=== PATIENT | male | born 1960 | race Caucasian/White ===

== ENCOUNTER 2018-03-06 10:32 | Outpatient (REF) | payer OTHER, SELFPAY ==
[2018-03-06 20:30] LABS: Anion Gap 6.9 mmol/L (3-11); BUN 22 mg/dL (7-18); CO2 32.1 mmol/L (21.0-32.0); CREATININE 1.23 mg/dL (0.70-1.30); Calcium 9.6 mg/dL (8.5-10.1); Chloride 101 mmol/L (98-107); Glucose 136 mg/dL (70-100); Sodium 140 mmol/L (136-145)
[2018-03-06 20:32] LABS: Hemoglobin A1C 5.9 % (4.5-6.2)
== END 2018-03-06 10:52 ==
LOC: NCHCN 10:32
PROVIDERS: PCP Family Medicine; Visit Provider Family Medicine
DX: I10 Essential (primary) hypertension (principal); Z83.3 Family history of diabetes mellitus
CPT/HCPCS: 80048; 83036

== ENCOUNTER 2018-05-22 09:55 | Emergency (ER) | payer OTHER, SELFPAY ==
[2018-05-22 09:58] VITALS: BP 152/104; PULSE 99; RESP 20; TEMP 36.5; O2SAT 98
--- NOTE | 2018-05-22 10:24 | ED.GENADUL_ITS ---
Discharge Plan Disposition Patient Disposition: HOME Condition: Good Discharge Details Chief Complaint: RespSymp Clinical Impression: Community acquired pneumonia Primary Care Provider: Neena Montiel V ED Provider: Dylan Contreras Home Meds and New Rx's Prescriptions: New doxycycline hyclate 100 mg tablet 100 mg PO BID Qty: 20 RF: 0 albuterol sulfate 90 mcg/actuation HFA aerosol inhaler 2 puff IH Q6H PRN (Reason: shortness of breath or wheezing) Qty: 8 RF: 0 loratadine 10 mg tablet,disintegrating 10 mg PO DAILY Qty: 14 RF: 0 benzonatate [Tessalon Perles] 100 mg capsule 100 mg PO QID PRN (Reason: cough) Qty: 20 RF: 0 No Action celecoxib [Celebrex] 200 MG capsule 200 mg PO BID RF: 0 tramadol 50 MG tablet 50 mg PO BID RF: 0 terazosin 2 MG capsule 8 mg PO DAILY RF: 0 hydrochlorothiazide 12.5 MG capsule 12.5 mg PO DAILY RF: 0 aspirin [Aspirin Low-Strength] 81 MG tablet,chewable 81 mg PO DAILY RF: 0 ProAir HFA 8.5 GM HFA aerosol inhaler 2 puff Inhalation ONCE RF: 0 FLEXERIL 10 MG tablet 10 mg PO TID RF: 0 methotrexate sodium 2.5 MG tablet 2.5 mg PO 6 TABS A WEEK RF: 0 losartan 100 MG tablet 100 mg PO DAILY RF: 0 gabapentin 300 MG/6 ML solution 300 mg PO TID RF: 0 chlorthalidone 50 MG tablet 50 mg PO DAILY RF: 0 pantoprazole 40 MG tablet,delayed release (DR/EC) 40 mg PO DAILY RF: 0 folic acid 1 MG tablet 1 mg PO DAILY RF: 0 Discharge Instructions Instructions: Sinusitis (ED), Community Acquired Pneumonia (ED) Additional Instructions: Please take the antibiotic as directed. Please take the inhaler if you note that this helps you with your cough. Please take the loratadine for your congestion. If you notice any worsening of your symptoms, or any new symptoms such as vomiting, diarrhea, fever, chills, shortness of breath, chest pain, numbness, weakness, or fainting , please return immediately to the emergency department for reevaluation. Please follow up with your primary care provider as soon as possible for reassessment and reevaluation. As always, it was a pleasure participating in your medical care today. Referrals: Neena Montiel MD [Primary Care Provider] - Discharge Data Discharge Date/Time-TO BE ENTERED AT DEPARTURE: 05/22/18 10:35 Medical Decision Making This is a very pleasant 57-year-old male who presents with persistent cough for 2 weeks, crackles in the bases, productive green and yellow sputum. He shows no evidence of hypoxemia or tachypnea. He ambulates well without any respiratory distress. He has no concerning red flags for cardiac etiology with no chest pain, no shortness of breath, no fever or chills. Physical exam shows no other concerning abnormalities. Feel that the patient most likely has mild community- acquired pneumonia with his persistent cough and productive sputum as well as the positive lung auscultatory findings. With reassuring vital signs no other significant abnormalities we have decided to hold off on a chest x-ray through shared decision making process understanding both risks and benefits. We will treat for community-acquired pneumonia. I have extensively reviewed the treatment plan and discharge instructions with the patient. I have addressed all patient concerns at this time. The patient was made aware of what symptoms to monitor for that would warrant a return to the emergency department. Discussed the plan with the patient, they demonstrate verbal understanding and agreement with our assessment and plan at this time. [facility] General Date/Time Provider Initiated Documentation: 05/22/18 10:19 . [facility] Narrative: This is a 57-year-old male with a past medical history of hypertension and no history of tobacco abuse or cardiac disease who presents today with 2 weeks of cough, congestion, productive yellow sputum. He denies any chest pain or shortness of breath. He denies any hemoptysis, fever, chills, nausea vomiting or diarrhea. Denies PE risk factors such as recent long car rides, immobilization, recent surgery, prior history of DVT or PE, family history of PE or DVT, morbid obesity, exogenous estrogen and smoking, hemoptysis, history of cancer. No recent hospital admissions, and he does live at home. Patient has no other complaints or modifying factors at this time. Related Data Home Medications Medication Instructions Recorded Confirmed Flexeril 10 mg PO TID tab-cap 07/10/12 05/22/18 albuterol sulfate [Proair Hfa] 2 puff INHALATION ONCE puff 07/10/12 05/22/18 aspirin [Aspirin Low-Strength] 81 mg PO DAILY tab-cap 07/10/12 05/22/18 celecoxib [Celebrex] 200 mg PO BID tab-cap 07/10/12 05/22/18 hydrochlorothiazide 12.5 mg PO DAILY tab-cap 07/10/12 05/22/18 terazosin 8 mg PO DAILY 07/10/12 05/22/18 tramadol 50 mg PO BID 07/10/12 05/22/18 gabapentin 300 mg PO TID ml 02/01/14 05/22/18 losartan 100 mg PO DAILY tab-cap 02/01/14 05/22/18 methotrexate sodium 2.5 mg PO 6 TABS A WEEK 02/01/14 05/22/18 chlorthalidone 50 mg PO DAILY tab-cap 09/20/16 05/22/18 folic acid 1 mg PO DAILY tab-cap 09/20/16 05/22/18 pantoprazole 40 mg PO DAILY tab-cap 09/20/16 05/22/18 albuterol sulfate 2 puff IH Q6H PRN #8 gm 05/22/18 benzonatate [Tessalon Perles] 100 mg PO QID PRN #20 cap 05/22/18 doxycycline hyclate 100 mg PO BID #20 tab 05/22/18 loratadine 10 mg PO DAILY #14 tab 05/22/18 Previous Rx's Medication Instructions Recorded albuterol sulfate 2 puff IH Q6H PRN #8 gm 05/22/18 benzonatate [Tessalon Perles] 100 mg PO QID PRN #20 cap 05/22/18 doxycycline hyclate 100 mg PO BID #20 tab 05/22/18 loratadine 10 mg PO DAILY #14 tab 05/22/18 Allergies Allergy/AdvReac Type Severity Reaction Status Date / Time indomethacin [From Indocin] AdvReac Nausea/VOMI Unverified 05/22/18 09:59 TTIING indomethacin sodium AdvReac Nausea/VOMI Unverified 05/22/18 09:59 [From Indocin] TTIING metoprolol AdvReac FATIGUE/DIZ Unverified 05/22/18 10:00 ZINESS General Stated Complaint: RespSymp MOUSTAPHA: 3 Review of Systems Review of Systems All systems reviewed & are unremarkable except as noted in HPI and below PFSH Medical History Benign hypertension Chronic obstructive lung disease Surgical History Amputation Hernia Repair, Incisional Total replacement of hip Social History Smoking and Tabacco status: Never Exam Narrative Exam Narrative: 1.Const: Well-nourished, Well-developed, appearing stated age 2.Eyes: PERRL, no conjunctival injection, and symmetrical lids. 3.ENT: Atraumatic external nose and ears. Moist MM. Neck: Symmetric, trachea midline, No thyromegaly. 4.CVS: +S1/S2, No murmurs or gallops. Peripheral pulses 2+ and equal in all extremities. Brisk capillary refill in all extremities. 5.RESP: Unlabored respiratory effort. Minimal crackles in the bases, no wheezes or rhonchi. 6.GI: Soft, Nontender/Nondistended, No hepatosplenomegaly. No guarding or rebound. 7.MSK: Normocephalic/Atraumatic, Extremities w/o deformity or ttp No cyanosis or clubbing, Normal movement of all extremities 8.Skin: Warm, Dry. No rashes or lesions. 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 Sensation grossly intact, no focal neurologic deficits. 10.Psych: (AAO) x3. Appropriate mood and affect Course Vital Signs Temperature 36.5 C 05/22/18 09:58 Pulse 99 H 05/22/18 09:58 Respiratory Rate 20 05/22/18 09:58 Blood Pressure 152/104 H 05/22/18 09:58 Pulse Oximetry 98 05/22/18 09:58 Temperature 36.5 C 05/22/18 09:58 Temperature Source Temporal Artery Scan 05/22/18 09:58 Pulse 99 H 05/22/18 09:58 Respiratory Rate 20 05/22/18 09:58 Respiratory Effort Non-Labored 05/22/18 09:58 Blood Pressure 152/104 H 05/22/18 09:58 Blood Pressure Position Sitting 05/22/18 09:58 Pulse Oximetry 98 05/22/18 09:58 Oxygen Delivery Method Room Air 05/22/18 09:58 Oxygen Flow Rate 0 05/22/18 09:58 Comment 05/22/18 09:58
[2018-05-22 11:15] VITALS: BP 152/104; PULSE 99; RESP 20; TEMP 36.5; O2SAT 98
== END 2018-05-22 10:35 | disposition home or self-care (01) ==
LOC: ER 10:39
PROVIDERS: Emergency Provider Student in an Organized Health Care Education/Training Program; PCP Family Medicine
DX: J18.9 Pneumonia, unspecified organism (principal); J44.9 Chronic obstructive pulmonary disease, unspecified; I10 Essential (primary) hypertension
CPT/HCPCS: 99283

== ENCOUNTER 2019-04-17 10:39 | Outpatient (REF) | payer OTHER, SELFPAY ==
[2019-04-17 22:30] LABS: HCT 44.9 % (40.0-50.0); HGB 15.4 g/dL (13.5-17.5); Mean Corp. HGB Concentration 34.3 g/dL (32.0-36.0); Mean Corpuscular Hemoglobin 28.9 pg (27.0-33.0); Mean Corpuscular Volume 84.2 fL (80-95); Mean Platelet Volume 10.7 fL (8.0-11.0); Platelet Count 228 x1000/uL (130-400); RBC 5.33 m/cumm (4.50-6.00); RBC Distribution Width 12.6 % (11.8-14.1); White Blood Cell Count 6.09 k/cumm (4.4-10.8)
[2019-04-17 22:48] LABS: ALT 34 U/L (16-63); AST 25 U/L (15-37); Albumin 3.7 g/dL (3.4-5.0); Alkaline Phosphatase 108 U/L (46-116); Anion Gap 8.6 mmol/L (3-11); BUN 15 mg/dL (7-18); Bilirubin, Total 0.4 mg/dL (0.2-1.0); CO2 29.4 mmol/L (21.0-32.0); CREATININE 1.02 mg/dL (0.70-1.30); Calcium 8.7 mg/dL (8.5-10.1); Calculated LDL 137 mg/dL; Chloride 103 mmol/L (98-107); Cholesterol 183 mg/dL (<200); Glucose 124 mg/dL (74-106); HDL Cholesterol 32 mg/dL (40-60); Potassium 4.3 mmol/L (3.5-5.1); Sodium 141 mmol/L (136-145); Total Protein 6.6 g/dL (6.4-8.2); Triglyceride 70 mg/dL (<150)
[2019-04-17 23:26] LABS: ESR 7 mm/hr (1-20)
[2019-04-17 23:28] LABS: Hemoglobin A1C 6.3 % (3.8-5.6)
[2019-04-21 11:22] LABS: PSA, Screening 0.1 ng/mL (0.0-3.5)
== END 2019-04-17 10:59 ==
LOC: NCHCN 10:39
PROVIDERS: PCP Family Medicine; Visit Provider Family Medicine
DX: Z00.00 Encounter for general adult medical examination without abnormal findings (principal); R73.03 Prediabetes; I73.00 Raynaud's syndrome without gangrene; I10 Essential (primary) hypertension; M19.90 Unspecified osteoarthritis, unspecified site; M79.10 Myalgia, unspecified site; Z12.5 Encounter for screening for malignant neoplasm of prostate
CPT/HCPCS: 80053; 80061; 84153; 85027; 85652; 83036; 86140

== ENCOUNTER 2019-05-20 17:47 | Outpatient (REF) | payer OTHER, SELFPAY ==
--- NOTE | 2019-05-20 16:00 | SKI_PTH ---
PATIENT: Lisandro Frances LOC: [facility]#:[id number] AGE/SX: 58/M ROOM: RE05/20/[address]: Neena Montiel V : 1960 BED: DIS: 05/20/2019 SPEC #: [id number] RECD: 05/21/19 12:27 STATUS: WHITLEY GONZALES #: [id number] RJ: 05/20/19 16:[address]: Neena Montiel V DEPT: Surgical Specimen RECD BY: Vivian Garcia Tissues: 1 - SKIN BIOPSY(SHAVE/PUNCH) Procedures: SKIN LEVEL 4 Comments: [id number]
== END 2019-05-20 18:07 ==
LOC: NCHCN 17:47
PROVIDERS: PCP Family Medicine; Visit Provider Family Medicine
DX: L28.1 Prurigo nodularis (principal)
CPT/HCPCS: 88305

== ENCOUNTER 2019-09-04 08:40 | Outpatient (REF) | payer OTHER, SELFPAY ==
[2019-09-04 19:03] LABS: HCT 44.3 % (40.0-50.0); HGB 15.2 g/dL (13.5-17.5); Mean Corp. HGB Concentration 34.3 g/dL (32.0-36.0); Mean Corpuscular Hemoglobin 30.3 pg (27.0-33.0); Mean Corpuscular Volume 88.2 fL (80-95); Mean Platelet Volume 10.9 fL (8.0-11.0); Platelet Count 253 x1000/uL (130-400); RBC 5.02 m/cumm (4.50-6.00); RBC Distribution Width 13.3 % (11.8-14.1); White Blood Cell Count 6.36 k/cumm (4.4-10.8)
[2019-09-04 19:12] LABS: ALT 45 U/L (16-63); AST 21 U/L (15-37); Albumin 4.1 g/dL (3.4-5.0); Alkaline Phosphatase 110 U/L (46-116); Anion Gap 6.5 mmol/L (3-11); BUN 17 mg/dL (7-18); Bilirubin, Total 0.3 mg/dL (0.2-1.0); CO2 28.5 mmol/L (21.0-32.0); CREATININE 1.28 mg/dL (0.70-1.30); Chloride 104 mmol/L (98-107); Estimated GFR 57.93 (mL/min/1.73m2); Glucose 167 mg/dL (74-106); Potassium 4.5 mmol/L (3.5-5.1); Sodium 139 mmol/L (136-145); Total Protein 7.1 g/dL (6.4-8.2)
== END 2019-09-04 09:00 ==
LOC: NCHCN 08:40
PROVIDERS: PCP Family Medicine; Visit Provider Family Medicine
DX: Z00.00 Encounter for general adult medical examination without abnormal findings (principal); R73.03 Prediabetes; I10 Essential (primary) hypertension
CPT/HCPCS: 80053; 85027

== ENCOUNTER 2020-01-28 09:07 | Outpatient (REF) | payer OTHER, SELFPAY ==
[2020-01-28 20:51] LABS: HCT 44.1 % (40.0-50.0); HGB 14.8 g/dL (13.5-17.5); MCHC 33.6 % (32.0-36.0); MCV 89.3 fL (80-95); MPV 10.2 fL (8.0-11.0); Platelet Count 234 10^3/uL (130-400); RBC 4.94 10^6/uL (4.36-5.78); RDW-SD 42.3 fL; WBC 5.61 10^3/uL (4.4-10.8)
[2020-01-28 21:19] LABS: ALT 41 U/L (16-63); AST 22 U/L (15-37); Alkaline Phosphatase 134 U/L (46-116); Anion Gap 4.3 mmol/L (3-11); BUN 18 mg/dL (7-18); Bilirubin, Total 0.3 mg/dL (0.2-1.0); CO2 31.7 mmol/L (21.0-32.0); CREATININE 0.99 mg/dL (0.70-1.30); Calcium 9.1 mg/dL (8.5-10.1); Chloride 103 mmol/L (98-107); Glucose 159 mg/dL (74-106); Potassium 4.4 mmol/L (3.5-5.1); Sodium 139 mmol/L (136-145); Total Protein 6.8 g/dL (6.4-8.2)
[2020-01-28 21:27] LABS: Hemoglobin A1C 5.9 % (<5.7)
== END 2020-01-28 09:27 ==
LOC: NCHCN 09:07
PROVIDERS: PCP Family Medicine; Visit Provider Family Medicine
DX: E11.9 Type 2 diabetes mellitus without complications (principal); I10 Essential (primary) hypertension; R03.1 Nonspecific low blood-pressure reading
CPT/HCPCS: 80053; 85027; 83036

== ENCOUNTER 2020-03-09 15:37 | Outpatient (REF) | payer OTHER, SELFPAY ==
[2020-03-11 22:55] LABS: COVID-19 RT-PCR UVMMC Result Positive (Negative)
== END 2020-03-09 15:57 ==
LOC: NCHCN 15:37
PROVIDERS: PCP Family Medicine; Visit Provider Family Medicine
DX: J06.9 Acute upper respiratory infection, unspecified (principal)
CPT/HCPCS: U0003

== ENCOUNTER 2020-03-12 13:13 | Outpatient (CLI) | payer OTHER, SELFPAY ==
[2020-03-12] VITALS (9 sets, daily range): BP systolic 136–165; BP diastolic 79–98; PULSE 94–113; RESP 18–22; TEMP 37.9–39.4; O2SAT 95–98
[2020-03-12] MEDS: Normal Saline Flush 10 ML SYR IVP (14:10)
[2020-03-12] MEDS: Normal Saline 500 ML 30 ML IV (14:46)
== END 2020-03-12 13:33 ==
PROVIDERS: PCP Family Medicine; Visit Provider Family Medicine
DX: U07.1 COVID-19 (principal)
CPT/HCPCS: 96365

== ENCOUNTER 2020-03-18 17:52 | Outpatient (REF) | payer OTHER, SELFPAY ==
[2020-03-23 09:52] LABS: COVID-19 RT-PCR Result Positive (Negative)
== END 2020-03-18 18:12 ==
LOC: NCHCN 17:52
PROVIDERS: PCP Family Medicine; Visit Provider Family Medicine
DX: Z20.828 Contact with and (suspected) exposure to other viral communicable diseases (principal)
CPT/HCPCS: U0003

== ENCOUNTER 2020-07-16 15:18 | Outpatient (REF) | payer OTHER, SELFPAY | END 2020-07-16 15:19 | disposition home or self-care (01) | LOC: NCHCN 15:18 | PROVIDERS: PCP Family Medicine; Visit Provider Family Medicine | DX: Z79.891 Long term (current) use of opiate analgesic (principal); Z51.81 Encounter for therapeutic drug level monitoring | CPT/HCPCS: 80373 ==

== ENCOUNTER 2020-10-06 17:25 | Outpatient (REF) | payer OTHER, SELFPAY ==
[2020-10-06 19:40] LABS: Abs Immature Grans 0.03 10^3/uL (0.0-0.06); Absolute Basophil Count 0.05 10^3/uL (0.0-0.2); Absolute Eosinophil Count 0.28 10^3/uL (0.0-0.7); Absolute Lymphocyte Count 2.11 10^3/uL (1.2-3.4); Absolute Monocyte Count 0.43 10^3/uL (0.1-0.8); Absolute Neutrophil Count 4.68 10^3/uL (1.2-6.7); Basophils % 0.7; Eosinophils % 3.7; HCT 42.9 % (40.0-50.0); HGB 14.5 g/dL (13.5-17.5); Immature Grans % 0.4; Lymphocytes % 27.8; MCH 29.5 pg (27.0-33.0); MCHC 33.8 % (32.0-36.0); MCV 87.4 fL (80-95); MPV 10.2 fL (8.0-11.0); Monocytes % 5.7; Neutrophils % 61.7; Nucleated RBC 0 %; Platelet Count 233 10^3/uL (130-400); RBC 4.91 10^6/uL (4.36-5.78); RDW 13.2 % (11.8-14.1); RDW-SD 41.8 fL; WBC 7.58 10^3/uL (4.4-10.8)
[2020-10-06 20:00] LABS: ALT 36 U/L (16-63); AST 18 U/L (15-37); Albumin 4.2 g/dL (3.4-5.0); Alkaline Phosphatase 99 U/L (46-116); Anion Gap 9.4 mmol/L (3-11); BUN 19 mg/dL (7-18); Bilirubin, Total 0.4 mg/dL (0.2-1.0); CO2 28.6 mmol/L (21.0-32.0); CREATININE 1.1 mg/dL (0.70-1.30); Calcium 9.4 mg/dL (8.5-10.1); Chloride 105 mmol/L (98-107); Glucose 109 mg/dL (74-106); Potassium 4.5 mmol/L (3.5-5.1); Sodium 143 mmol/L (136-145); Total Protein 7.1 g/dL (6.4-8.2)
== END 2020-10-06 17:26 | disposition home or self-care (01) ==
LOC: NCHCN 17:25
PROVIDERS: PCP Family Medicine; Visit Provider Physician Assistant Medical
DX: U07.1 COVID-19 (principal)
CPT/HCPCS: 80053; 85025

== ENCOUNTER 2020-10-07 01:31 | Outpatient (CLI) | payer OTHER, SELFPAY ==
--- NOTE | 2020-10-07 07:54 | DI.RAD_ITS ---
Exam(s) XR CHEST 2V PA LATERAL EXAM: XR CHEST 2V PA LATERAL CLINICAL HISTORY: CHEST PAIN, R07.9 TECHNIQUE: 2D digital imaging was performed. COMPARISON: CR CHEST 2 VIEWS PA,LAT from 05/29/2011 CR CHEST 2 VIEWS PA,LAT from 05/29/2011 CR LEFT SHOULDER COMPLETE from 08/29/2016 FINDINGS: MEDIASTINUM: Normal. HEART: Normal. PULMONARY VASCULATURE: Normal. LUNGS: Clear. PLEURAL SPACE: No pleural effusion or pneumothorax. BONE:Normal. OTHER FINDINGS:Normal. IMPRESSION: No acute pulmonary findings. DATA REPOSITORY: RADIATION DOSE DELIVERED:
== END 2020-10-07 01:51 ==
PROVIDERS: PCP Family Medicine; Visit Provider Physician Assistant Medical
DX: R07.9 Chest pain, unspecified (principal)
CPT/HCPCS: 71046

== ENCOUNTER 2021-05-03 17:21 | Outpatient (REF) | payer OTHER, SELFPAY ==
[2021-05-03 14:18] LABS: HCT 44.7 % (40.0-50.0); MCH 29.6 pg (27.0-33.0); MCHC 33.6 % (32.0-36.0); MCV 88.2 fL (80-95); MPV 10.5 fL (8.0-11.0); Platelet Count 221 10^3/uL (130-400); RBC 5.07 10^6/uL (4.36-5.78); RDW 12.9 % (11.8-14.1); RDW-SD 41.1 fL; WBC 5.67 10^3/uL (4.4-10.8)
[2021-05-03 14:21] LABS: ESR 4 mm/hr (0-20)
[2021-05-03 14:28] LABS: ALT 38 U/L (16-63); AST 21 U/L (15-37); Albumin 4.1 g/dL (3.4-5.0); Alkaline Phosphatase 102 U/L (46-116); Anion Gap 6.6 mmol/L (3-11); BUN 15 mg/dL (7-18); Bilirubin, Total 0.4 mg/dL (0.2-1.0); CO2 29.4 mmol/L (21.0-32.0); Calcium 8.6 mg/dL (8.5-10.1); Calculated LDL 116 mg/dL (<100); Chloride 104 mmol/L (98-107); Cholesterol 165 mg/dL (<200); Glucose 122 mg/dL (74-106); HDL Cholesterol 36 mg/dL (40-60); Potassium 4.3 mmol/L (3.5-5.1); Sodium 140 mmol/L (136-145); Triglyceride 66 mg/dL (<150)
[2021-05-03 14:45] LABS: Hemoglobin A1C 6.2 % (<5.7)
[2021-05-03 17:26] LABS: C-Reactive Protein 0.19 mg/dL (0.0-0.3)
[2021-05-04 14:33] LABS: COVID-19 RT-PCR UVMMC Result Negative (Negative)
== END 2021-05-03 17:22 | disposition home or self-care (01) ==
LOC: NCHCN 17:21
PROVIDERS: PCP Family Medicine; Visit Provider Family Medicine
DX: Z20.822 Contact with and (suspected) exposure to COVID-19 (principal); R05.8 Other specified cough; E11.9 Type 2 diabetes mellitus without complications; I10 Essential (primary) hypertension; R06.09 Other forms of dyspnea; M19.90 Unspecified osteoarthritis, unspecified site
CPT/HCPCS: 80053; 80061; 85027; 85652; U0003; 83036; 86140

== ENCOUNTER 2021-06-03 13:25 | Emergency (ER) | payer OTHER, SELFPAY ==
[2021-06-03] VITALS (37 sets, daily range): BP systolic 118–170; BP diastolic 67–121; PULSE 95–135; RESP 12–20; TEMP 37.3; O2SAT 93–99
--- NOTE | 2021-06-03 13:15 | RT.EKG_ITS ---
APPROVED REPORT Exam: Resting ECG Reason for Exam: CHEST PAIN Patient Location: E HR:116 bpm ECG Measurements Heart Rate 116 AXIS WV 171 P 92 QRSd 150 QRS 50 QT 362 T 3 QTc 504 Conclusion Sinus tachycardia Multiple ventricular premature complexes Right bundle branch block...QRSd>120
--- NOTE | 2021-06-03 13:30 | RT.EKG_ITS ---
APPROVED REPORT Exam: Resting ECG Reason for Exam: CHEST PAIN Patient Location: E HR:127 bpm ECG Measurements Heart Rate 127 AXIS DC 128 P 73 QRSd 136 QRS -50 QT 310 T -8 QTc 451 Conclusion Sinus tachycardia. RBBB and LAFB...QRSd >120mS, axis(-40,240) Lateral infarct, acute...ST >.10mV, V5 V6 I aVL Borderline ST elevation, anterior leads...ST >0.15mV in V1-V4
--- NOTE | 2021-06-03 13:45 | RT.EKG_ITS ---
APPROVED REPORT Exam: Resting ECG Reason for Exam: chest pain Patient Location: E HR:102 bpm ECG Measurements Heart Rate 102 AXIS MI 189 P 82 QRSd 147 QRS 58 QT 356 T 27 QTc 464 Conclusion Sinus tachycardia Right bundle branch block. Improved ST segments vs previous
--- NOTE | 2021-06-03 13:45 | RT.EKG_ITS ---
APPROVED REPORT Exam: Resting ECG Reason for Exam: chest pain Patient Location: E HR:109 bpm ECG Measurements Heart Rate 109 AXIS WI 139 P 61 QRSd 157 QRS 75 QT 367 T 44 QTc 496 Conclusion Sinus tachycardia...rate> 99 Right bundle branch block Improved ST segments
[2021-06-03 13:53] LABS: Source Nasal/Nares
--- NOTE | 2021-06-03 13:56 | DI.RAD_ITS ---
Exam(s) XR PORTABLE CHEST AP EXAM: XR PORTABLE CHEST AP CLINICAL HISTORY: chest TECHNIQUE: 2D digital imaging was performed of the chest. One image was obtained. An AP view was ob tained. COMPARISON: CR XR CHEST 2V PA LATERAL from 10/07/2020 FINDINGS: MEDIASTINUM: Normal. HEART: Normal. PULMONARY VASCULATURE: Normal. LUNGS: Clear. PLEURAL SPACE: No pleural effusion or pneumothorax. BONE:Within normal limits for the patient's age. OTHER FINDINGS:Normal. IMPRESSION: No acute pulmonary findings. DATA REPOSITORY: RADIATION DOSE DELIVERED:
[2021-06-03 13:58] LABS: HGB 14.6 g/dL (13.5-17.5); MCH 30.3 pg (27.0-33.0); MCV 89.2 fL (80-95); Platelet Count 231 10^3/uL (130-400); RBC 4.82 10^6/uL (4.36-5.78); RDW 13.2 % (11.8-14.1); RDW-SD 42.3 fL; WBC 8.46 10^3/uL (4.4-10.8)
[2021-06-03 13:59] LABS: Abs Immature Grans 0.05 10^3/uL (0.0-0.06); Absolute Basophil Count 0.07 10^3/uL (0.0-0.2); Absolute Eosinophil Count 0.34 10^3/uL (0.0-0.7); Absolute Lymphocyte Count 2.57 10^3/uL (1.2-3.4); Absolute Monocyte Count 0.53 10^3/uL (0.1-0.8); Basophils % 0.8; Immature Grans % 0.6; Lymphocytes % 30.4; MPV 10.1 fL (8.0-11.0); Monocytes % 6.3; Neutrophils % 57.9; Nucleated RBC 0 %
[2021-06-03] MEDS: nitroGLYcerin 0.4 MG TAB ×2 (14:03)
[2021-06-03] MEDS: MORPHine 4 MG/ML SYR IVP (14:04)
[2021-06-03] MEDS: Aspirin 81 MG CHEW 324 MG CH (14:05)
[2021-06-03] MEDS: nitroGLYcerin in D5W 50 MG/250 ML BTL IV (14:12)
[2021-06-03] MEDS: MORPHine 4 MG/ML SYR (14:14)
[2021-06-03 14:18] LABS: ALT 36 U/L (16-63); AST 19 U/L (15-37); Albumin 4.1 g/dL (3.4-5.0); Alkaline Phosphatase 102 U/L (46-116); BUN 18 mg/dL (7-18); Bilirubin, Total 0.3 mg/dL (0.2-1.0); CREATININE 1.2 mg/dL (0.70-1.30); Calcium 8.9 mg/dL (8.5-10.1); Chloride 108 mmol/L (98-107); Glucose 113 mg/dL (74-106); Potassium 3.8 mmol/L (3.5-5.1); Sodium 143 mmol/L (136-145); Total Protein 7.3 g/dL (6.4-8.2); Troponin I < 50 ng/L (<or=60)
--- NOTE | 2021-06-03 14:20 | ED.GENADUL_ITS ---
Discharge Plan Disposition Patient Disposition: [facility] Condition: Serious Discharge Details Clinical Impression: Myocardial infarction Primary Care Provider: Neena Montiel V ED Provider: Vivian Mendez Home Meds and New Rx's Prescriptions: No Action celecoxib [Celebrex] 200 MG capsule 200 mg PO BID 0RF tramadol 50 MG tablet 50 mg PO BID 0RF terazosin 2 MG capsule 8 mg PO DAILY 0RF Rx Instructions: AT NIGHT methotrexate sodium 2.5 MG tablet 2.5 mg PO 6 TABS A WEEK 0RF Label Comments: 08/14/14 takes q weekly on Sat night Rx Instructions: RECORDS STATE, 2.5MG, 6 TAB Q WEEK.HE losartan 100 MG tablet 100 mg PO DAILY 0RF Label Comments: FROM RECORD.HE gabapentin 300 MG/6 ML solution 300 mg PO TID 0RF Label Comments: FROM RECORD.HE cyclobenzaprine 10 mg Tablet 10 mg PO BID 0RF Medical Decision Making 60-year-old male who was seen, examined, discussed with the bedside with Ms. Mendez. Please see her portion of the note for pertinent details of the physical exam. Patient has a history of hypertension, history approximately 10 months of intermittent episodes of exertional chest pain. 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 Rates a 10 out of 10 on arrival. Patient's initial EKG showed freestanding right bundle branch block. He was hypertensive at that time and then had an escalation of his pain with EKG #[address] segment elevation in leads I, aVL and V4 through V6 with anterior T wave changes. Most consistent with acute coronary syndrome. Patient was placed on a monitoring manager with IV access, portable chest x-ray was obtained without evidence of acute findings. Patient was given aspirin, placed on heparin and nitroglycerin drips with morphine used for additional pain control. EKGs were uploaded in the case the cardiology team by Ms. Mendez. They agree with our diagnosis of acute myocardial infarction. They recommended the administration of TNKase. I personally consented the patient for the administration of TNKase at 14:30 hrs and specifically noted to have in the presence of nursing staff the risk of permanent disability or . [facility] for contacted for transport. HPI General Mode of arrival: ambulatory . Date/Time Provider Initiated Documentation: 06/03/21 13:26 . Limitations to Documentation: no limitations . Information obtained by: patient . History of Present Illness 60 year old M presents to the emergency department with the chief complaint of Chest pain, abrupt at 2:30, described as severe, Quality is described as constant, and is localized to the left. Patient reports no radiation. Patient started experiencing this hour(s) and it has been constant. improves with No relieving factors improve symptom(s), Movement worsens symptoms . Patient notes no other symptoms.. Patient did receive the following treatments prior to arrival, none Related Data Home Medications Medication Instructions Recorded Confirmed celecoxib 200 mg capsule (Celebrex) 200 mg PO BID tab-cap 07/10/12 06/03/21 terazosin 2 mg capsule 8 mg PO DAILY 07/10/12 06/03/21 tramadol 50 mg tablet 50 mg PO BID 07/10/12 06/03/21 gabapentin 300 mg/6 mL (6 mL) oral 300 mg PO TID ml 02/01/14 06/03/21 solution losartan 100 mg tablet 100 mg PO DAILY tab-cap 02/01/14 06/03/21 methotrexate sodium 2.5 mg tablet 2.5 mg PO 6 TABS A WEEK 02/01/14 06/03/21 cyclobenzaprine 10 mg tablet 10 mg PO BID 03/12/20 06/03/21 Allergies Allergy/AdvReac Type Severity Reaction Status Date / Time indomethacin [From Indocin] AdvReac Nausea/VOMI Unverified 03/12/20 14:26 TTIING indomethacin sodium AdvReac Nausea/VOMI Unverified 03/12/20 14:26 [From Indocin] TTIING metoprolol AdvReac FATIGUE/DIZ Unverified 03/12/20 14:26 ZINESS General Stated Complaint: Chest Pain MOUSTAPHA: 3 Review of Systems Narrative: Patient denies recent illness. No falls, no recent strokes or history thereof, no intracranial surgery. No history of bleeding issues. 8 systems were reviewed and otherwise negative PFSH All Active Problems (Updated 06/03/21 @ 14:34 by Flaikto Solorzano MD) Myocardial infarction (Chronic) Medical History Benign hypertension Chronic obstructive lung disease Surgical History Amputation left ring Hernia Repair, Incisional x 4 Total replacement of hip bilateral done at same setting. Social History Smoking/Tobacco Use Status: Never Smoking risk assessment performed?: Yes Alcohol Intake: never Drug use: Never Substance use type: does not use Do you feel safe at home: Yes Do you feel safe in your relationship?: Yes Exam Narrative Exam Narrative: Please see Ms. Mendez exam. Patient is alert and interactive Course Vital Signs Vital signs: Vital Signs Temperature 37.3 C 06/03/21 13:29 Pulse 107 H 06/03/21 13:29 Respiratory Rate 18 06/03/21 13:29 Blood Pressure 163/106 H 06/03/21 13:29 Pulse Oximetry 98 06/03/21 13:29 Temperature 37.3 C 06/03/21 13:29 Temperature Source Tympanic 06/03/21 13:29 Pulse 107 H 06/03/21 13:29 Respiratory Rate 18 06/03/21 13:29 Respiratory Effort Non-Labored 06/03/21 13:32 Respiratory Depth Normal 06/03/21 13:32 Respiratory Pattern Normal 06/03/21 13:32 Blood Pressure 163/106 H 06/03/21 13:29 Blood Pressure Position Supine 06/03/21 13:29 Pulse Oximetry 98 06/03/21 13:29 Oxygen Delivery Method Room Air 06/03/21 13:29 Oxygen Flow Rate 0 06/03/21 13:29 Pain Level 10 06/03/21 14:14 Lab/Test Results Lab/Test Results: Laboratory Tests Range/Units 06/03/21 06/03/21 06/03/21 13:40 13:40 13:40 WBC (4.4-10.8) 10^3/uL 8.46 RBC (4.36-5.78) 10^6/uL 4.82 Hgb (13.5-17.5) g/dL 14.6 Hct (40.0-50.0) % 43.0 MCV (80-95) fL 89.2 MCH (27.0-33.0) pg 30.3 MCHC (32.0-36.0) % 34.0 RDW (11.8-14.1) % 13.2 Plt Count (130-400) 10^3/uL 231 MPV (8.0-11.0) fL 10.1 Immature Gran % 0.6 Neutrophils % 57.9 Lymphocytes % 30.4 Monocytes % 6.3 Eosinophils % 4.0 Basophils % 0.8 Nucleated RBC % % 0 Absolute Neutrophils (1.2-6.7) 10^3/uL 4.90 Absolute Lymphocytes (1.2-3.4) 10^3/uL 2.57 Absolute Monocytes (0.1-0.8) 10^3/uL 0.53 Absolute Eosinophils (0.0-0.7) 10^3/uL 0.34 Absolute Basophils (0.0-0.2) 10^3/uL 0.07 Sodium (136-145) mmol/L 143 Potassium (3.5-5.1) mmol/L 3.8 Chloride (98-107) mmol/L 108 H Carbon Dioxide (21.0-32.0) mmol/L 26.0 Anion Gap (3-11) mmol/L 9.0 BUN (7-18) mg/dL 18 Creatinine (0.70-1.30) mg/dL 1.2 Estimated GFR/1.73 m2 (mL/min/1.73m2) >= 60.00 Glucose (74-106) mg/dL 113 H Calcium (8.5-10.1) mg/dL 8.9 Total Bilirubin (0.2-1.0) mg/dL 0.3 AST (15-37) U/L 19 ALT (16-63) U/L 36 Alkaline Phosphatase (46-116) U/L 102 Troponin I (<or=60) ng/L < 50 Total Protein (6.4-8.2) g/dL 7.3 Albumin (3.4-5.0) g/dL 4.1 COVID-19 Source Nasal/Nares Critical Care Time Critical Care Time Critical Care Time: Yes Total Critical Care Time: 40 Attestation: Bedside management, discussion with Andrea, Review of records
[2021-06-03] MEDS: Clopidogrel 300 MG TAB PO (14:31)
[2021-06-03 14:34] LABS: COVID-19 PCR Negative (Negative)
[2021-06-03] MEDS: Tenecteplase 50 MG KIT IVP (14:36)
--- NOTE | 2021-06-03 14:36 | W.ED.GENAD ---
Discharge Plan Disposition Patient Disposition: [facility] Condition: Serious Discharge Details Clinical Impression: Myocardial infarction Primary Care Provider: Neena Montiel V ED Provider: Vivian Mendez Home Meds and New Rx's Prescriptions: No Action celecoxib [Celebrex] 200 MG capsule 200 mg PO BID 0RF tramadol 50 MG tablet 50 mg PO BID 0RF terazosin 2 MG capsule 8 mg PO DAILY 0RF Rx Instructions: AT NIGHT methotrexate sodium 2.5 MG tablet 2.5 mg PO 6 TABS A WEEK 0RF Label Comments: 08/14/14 takes q weekly on Sat night Rx Instructions: RECORDS STATE, 2.5MG, 6 TAB Q WEEK.HE losartan 100 MG tablet 100 mg PO DAILY 0RF Label Comments: FROM RECORD.HE gabapentin 300 MG/6 ML solution 300 mg PO TID 0RF Label Comments: FROM RECORD.HE cyclobenzaprine 10 mg Tablet 10 mg PO BID 0RF Discharge Data Discharge Date/Time-TO BE ENTERED AT DEPARTURE: 06/03/21 15:43 Medical Decision Making Patient initially had a EKG with right bundle branch block, unchanged from prior His pain worsened and repeat EKG teens approximately 5 minutes after and there is now evidence of anterolateral injury with reciprocal changes Patient was given 4 baby aspirin, 300 mg of Plavix, and heparin was initiated after appropriate screening for any recent hemorrhagic stroke or head trauma Patient declines any recent trauma or hemorrhagic stroke Chest x-ray does not show evidence of widened mediastinum therefore heparin was initiated Patient had relief with nitroglycerin administration sublingually and so nitro drip was initiated Given patient's level of pain, he was increased to 10 mcg/min, this nicely controlled his blood pressure as well Patient also received a milligrams of morphine for pain control Troponin negative He is resting comfortably in room [facility], Dr. Hall returned a phone call and if concern for evolving myocardial infarction, ST elevation SD alert was called Dr. Hall requests that we initiate TNKase at 50 mg At time of reassessment, flight crew from daughter has arrived and patient was transported to [facility] critical condition secondary to ST elevation HPI General Mode of arrival: ambulatory. Date/Time Provider Initiated Documentation: 06/03/21 13:26. Limitations to Documentation: no limitations. Information obtained by: patient. History of Present Illness Quality is described as constant, and is localized to the left. improves with No relieving factors improve symptom(s), Movement worsens symptoms . Patient notes no other symptoms.. 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 He denies any traumatic injury. He states the pain radiates into his neck and down his left arm. He does cry as the pain is sharp and stabbing. He denies prior history of coronary artery disease. Denies nausea, describes diaphoresis. States that the pain is been constant since onset. States he has been having exertional symptoms for the past several years but that it normally is alleviated within minutes of rest. Denies known history of coronary artery disease. States mom had an SD early in her life, unsure of the exact age. Radiates through to his back. Denies tobacco abuse. Denies diabetes. Related Data Home Medications Medication Instructions Recorded Confirmed celecoxib 200 mg capsule (Celebrex) 200 mg PO BID tab-cap 07/10/12 06/03/21 terazosin 2 mg capsule 8 mg PO DAILY 07/10/12 06/03/21 tramadol 50 mg tablet 50 mg PO BID 07/10/12 06/03/21 gabapentin 300 mg/6 mL (6 mL) oral 300 mg PO TID ml 02/01/14 06/03/21 solution losartan 100 mg tablet 100 mg PO DAILY tab-cap 02/01/14 06/03/21 methotrexate sodium 2.5 mg tablet 2.5 mg PO 6 TABS A WEEK 02/01/14 06/03/21 cyclobenzaprine 10 mg tablet 10 mg PO BID 03/12/20 06/03/21 Allergies Allergy/AdvReac Type Severity Reaction Status Date / Time indomethacin [From Indocin] AdvReac Nausea/VOMI Unverified 03/12/20 14:26 TTIING indomethacin sodium AdvReac Nausea/VOMI Unverified 03/12/20 14:26 [From Indocin] TTIING metoprolol AdvReac FATIGUE/DIZ Unverified 03/12/20 14:26 ZINESS General Stated Complaint: Chest Pain MOUSTAPHA: 3 Review of Systems All systems reviewed & are unremarkable except as noted in HPI and below PFSH All Active Problems (Updated 06/03/21 @ 14:34 by Flakito Solorzano MD) Myocardial infarction (Chronic) Medical History Benign hypertension Chronic obstructive lung disease Surgical History Amputation left ring Hernia Repair, Incisional x 4 Total replacement of hip bilateral done at same setting. Social History Smoking/Tobacco Use Status: Never Smoking risk assessment performed?: Yes Alcohol Intake: never Drug use: Never Substance use type: does not use Do you feel safe at home: Yes Do you feel safe in your relationship?: Yes Exam Const General: cooperative, comfortable and no acute distress Eyes Pupils: PERRL Resp Effort & Inspection: normal respiratory effort Auscultation: clear to auscultation bilaterally Cardio Rate: regular rate Rhythm: regular rhythm GI Other: No abdominal bruit or pulsatile mass No abdominal tenderness Skin General skin exam: no rashes or lesions noted Neuro General: patient alert and patient oriented x3 Cranial Nerves: CN's II-XI intact bilaterally Extrem Other: distal pulses intact, no calf swelling or tenderness Course Vital Signs Vital signs: Vital Signs Temperature 37.3 C 06/03/21 13:29 Pulse 107 H 06/03/21 13:29 Respiratory Rate 18 06/03/21 13:29 Blood Pressure 163/106 H 06/03/21 13:29 Pulse Oximetry 98 06/03/21 13:29 Temperature 37.3 C 06/03/21 13:29 Temperature Source Tympanic 06/03/21 13:29 Pulse 107 H 06/03/21 13:29 Respiratory Rate 18 06/03/21 13:29 Respiratory Effort Non-Labored 06/03/21 13:32 Respiratory Depth Normal 06/03/21 13:32 Respiratory Pattern Normal 06/03/21 13:32 Blood Pressure 163/106 H 06/03/21 13:29 Blood Pressure Position Supine 06/03/21 13:29 Pulse Oximetry 98 06/03/21 13:29 Oxygen Delivery Method Room Air 06/03/21 13:29 Oxygen Flow Rate 0 06/03/21 13:29 Pain Level 10 06/03/21 14:14 Lab/Test Results Lab/Test Results: Laboratory Tests Range/Units 0306/03/21 06/03/21 13:40 13:40 13:40 WBC (4.4-10.8) 10^3/uL 8.46 RBC (4.36-5.78) 10^6/uL 4.82 Hgb (13.5-17.5) g/dL 14.6 Hct (40.0-50.0) % 43.0 MCV (80-95) fL 89.2 MCH (27.0-33.0) pg 30.3 MCHC (32.0-36.0) % 34.0 RDW (11.8-14.1) % 13.2 Plt Count (130-400) 10^3/uL 231 MPV (8.0-11.0) fL 10.1 Immature Gran % 0.6 Neutrophils % 57.9 Lymphocytes % 30.4 Monocytes % 6.3 Eosinophils % 4.0 Basophils % 0.8 Nucleated RBC % % 0 Absolute Neutrophils (1.2-6.7) 10^3/uL 4.90 Absolute Lymphocytes (1.2-3.4) 10^3/uL 2.57 Absolute Monocytes (0.1-0.8) 10^3/uL 0.53 Absolute Eosinophils (0.0-0.7) 10^3/uL 0.34 Absolute Basophils (0.0-0.2) 10^3/uL 0.07 Sodium (136-145) mmol/L 143 Potassium (3.5-5.1) mmol/L 3.8 Chloride (98-107) mmol/L 108 H Carbon Dioxide (21.0-32.0) mmol/L 26.0 Anion Gap (3-11) mmol/L 9.0 BUN (7-18) mg/dL 18 Creatinine (0.70-1.30) mg/dL 1.2 Estimated GFR/1.73 m2 (mL/min/1.73m2) >= 60.00 Glucose (74-106) mg/dL 113 H Calcium (8.5-10.1) mg/dL 8.9 Total Bilirubin (0.2-1.0) mg/dL 0.3 AST (15-37) U/L 19 ALT (16-63) U/L 36 Alkaline Phosphatase (46-116) U/L 102 Troponin I (<or=60) ng/L < 50 Total Protein (6.4-8.2) g/dL 7.3 Albumin (3.4-5.0) g/dL 4.1 COVID-19 Source Nasal/Nares SARS-CoV-2 (PCR) (Negative) Negative
[2021-06-03 14:41] LABS: INR 1.1 (0.9-1.1); Prothrombin Time 10.6 sec (9.3-11.0)
[2021-06-03] MEDS: nitroGLYcerin 2% 1 INCH/1 GM PKT (14:41)
--- NOTE | 2021-06-03 14:45 | NUR.NOTE ---
Nursing Note: PT ON MONITOR, IV INITIATED, BLOOD DRAWN AND INITIAL EKG DONE, MEDICATED WITH NITRO TAB X2 5 MIN APART WITH MILD IMPROVEMENT TO PAIN, O2 AT 3LPM VIA NC PLACED, MEDICATED 4MG IV MORPHINE, FOLLOWED WITH 1 NITRO PASTE TO UPPER RIGHT CHEST, PT REPORTED INCREASED PAIN, REPEAT EKG, NITRO DRIP UP AT 5MCG/MIN, HEPARIN 4000U BOLUS AND DRIP INITIATED AT 8MLS/HR, PO ASA ADMINISTERED, NO RELIEF IN PAIN, NITRO DRIP TITRATED TO 10MCG/MIN, ADDITIONAL DOSE OF IV MORPHINE GIVEN & NITRO PASTE REMOVED FROM RIGHT UPPER CHEST, NITRO DRIP TITRATED TO 15 AND THEN 20 MCG/MIN WITH RELIEF OF PAIN, PO PLAVIX ADMINISTERED, PT PLACED ON DEFIB PADS & CRASH CART MONITOR, HEPARIN DRIP INCREASED TO 10MLS/HR, PAIN STABILIZED TO 5/10 TOLERABLE, PROVIDER IN TO SEE PT TO DISCUSS TNK, PT AGREES, TNK ADMINISTERED AND REPEAT EKG DONE, PT SPOKE WITH , PHIL EN ROUTE, PT STATES FEELS MUCH BETTER, PAIN 4/10, V/S MONITORED Q5MIN DURING THIS PERIOD, CONTINUE TO MONITOR.
--- NOTE | 2021-06-03 15:21 | NUR.NOTE ---
Nursing Note:PT REPORTS FEELING COMFORTABLE AND AT EASE, NO CHANGE IN MEDICATIONS AT THIS TIME PHIL JOY ARRIVED, REPORT GIVEN.
--- NOTE | 2021-06-03 17:11 | NUR.NOTE ---
Nursing Note: addendum: pt weight recorded as 69kg & provider ordered heparin @ 8ml/hr, weight updated to 106kg, pt actual weight, provider aware & adjusted heparin rate to 10ml/hr, no change in bolus dose.
== END 2021-06-03 15:43 | disposition short-term general hospital (02) ==
PROVIDERS: Emergency Provider Physician Assistant; PCP Family Medicine
DX: I21.9 Acute myocardial infarction, unspecified (principal); I10 Essential (primary) hypertension; R07.9 Chest pain, unspecified
CPT/HCPCS: 80053; 87635; 93005; 96365; 96367; 96375; 96376; 99291; 71045; 84484; 85025; 85610; 85730; 93010; J2270; J3101

== ENCOUNTER 2021-06-09 16:33 | Outpatient (REF) | payer OTHER, SELFPAY ==
[2021-06-09 18:35] LABS: Anion Gap 7.4 mmol/L (3-11); BUN 29 mg/dL (7-18); CO2 29.6 mmol/L (21.0-32.0); CREATININE 1.3 mg/dL (0.70-1.30); Chloride 103 mmol/L (98-107); Glucose 113 mg/dL (74-106); Potassium 4.3 mmol/L (3.5-5.1); Sodium 140 mmol/L (136-145)
[2021-06-09 18:40] LABS: HGB 13.7 g/dL (13.5-17.5); MCHC 33.4 % (32.0-36.0); MCV 89.7 fL (80-95); MPV 10.8 fL (8.0-11.0); Platelet Count 229 10^3/uL (130-400); RBC 4.57 10^6/uL (4.36-5.78); RDW 12.9 % (11.8-14.1); RDW-SD 41.6 fL; WBC 7.02 10^3/uL (4.4-10.8)
== END 2021-06-09 16:34 | disposition home or self-care (01) ==
LOC: NCHCN 16:33
PROVIDERS: PCP Family Medicine; Visit Provider Family Medicine
DX: I21.3 ST elevation (STEMI) myocardial infarction of unspecified site (principal)
CPT/HCPCS: 80048; 85027

== ENCOUNTER 2022-01-06 15:53 | Outpatient (REF) | payer OTHER, SELFPAY ==
[2022-01-06 15:43] LABS: HCT 38.9 % (40.0-50.0); HGB 13.2 g/dL (13.5-17.5); MCH 31.4 pg (27.0-33.0); MCHC 33.9 % (32.0-36.0); MCV 92 fL (80-95); MPV 10.4 fL (8.0-11.0); Platelet Count 223 10^3/uL (130-400); RBC 4.21 10^6/uL (4.36-5.78); RDW-SD 43.4 fL; WBC 6.94 10^3/uL (4.4-10.8)
[2022-01-06 17:04] LABS: ALT 25 U/L (16-63); AST 17 U/L (15-37); Albumin 3.9 g/dL (3.4-5.0); Alkaline Phosphatase 145 U/L (46-116); BUN 23 mg/dL (7-18); Bilirubin, Total 0.4 mg/dL (0.2-1.0); CREATININE 1.3 mg/dL (0.70-1.30); Calcium 9.2 mg/dL (8.5-10.1); Chloride 101 mmol/L (98-107); Estimated GFR 62.89 (mL/min/1.73m2); Glucose 164 mg/dL (74-106); Potassium 3.8 mmol/L (3.5-5.1); Sodium 138 mmol/L (136-145); Total Protein 6.8 g/dL (6.4-8.2)
[2022-01-06 17:20] LABS: Hemoglobin A1C 6.6 % (<5.7)
== END 2022-01-06 15:54 | disposition home or self-care (01) ==
LOC: NCHCN 15:53
PROVIDERS: PCP Family Medicine; Visit Provider Family Medicine
DX: I10 Essential (primary) hypertension (principal); R07.9 Chest pain, unspecified; Z51.81 Encounter for therapeutic drug level monitoring
CPT/HCPCS: 80053; 85027; 83036; 86140

== ENCOUNTER → 2022-01-26 02:35 | Outpatient (CLI) | payer OTHER, SELFPAY ==
--- NOTE | 2022-01-26 08:45 | DI.NM_ITS ---
APPROVED REPORT Exam: Pharmacologic Patient Location: Out-Patient Room/Bed: Stress Nurse: Rona Sanon RN Ordering Provider:TASHA DEL CASTILLOMEGAN, Contact Number: [phone] BMI: 34.69 Baseline Rhythm: RBBB/LPFB Comment: T-wave inversions in V2 Indications: Angina. MADDEN. Medical History Medical History: HTN. COPD. Angina. STEMI. Nocturnal hypoxia. COVID 19. DM. Raynaud's. HLD. 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 Periphera neuropathy. Cardiac Medications: Metoprolol succinate. Atorvastatin. Amlodipine. Nitro SL. Prasugrel. Methotrexat e sodium. Losartan. Gabapentin. Allergies: Indomethacin. Metoprolol. Cardiac Risk Factors: Family hx. COPD. HTN. Pre-diabetes. HLD. Previous Cardiac Procedures: Cardiac stents 2021. Pretest Chest Pain Characteristics: None Exercise History: Physically active Physical Disabilities: None Lung Sounds: Clear to auscultation Heart Sounds: Regular. Stress Test Details Test: Exercise stress converted to pharmacologic stress due to failure to obtain a diagnostic stress test. Nuclear Acquisition: Rest Tc-99m/Stress Tc-99m 1 day Rest Isotope: Tc-99m Sestamibi. Dose: 10.3 Date: 01/26/2022 Injection Time: 0840 Stress Isotope: Tc-99m Sestamibi. Dose: 32.8 Date: 01/26/2022 Injection Time: 1005 HR Resting HR Supine: 55 bpm Max Heart Rate (APMHR): 160.733060 bpm Resting HR Standin bpm Target HR (85% APMHR): 136.520573 bpm Max HR Achieved: 120 bpm % of APMHR: 75.00 Recovery HR: 76 bpm HR response to stress: Blunted HR response to stress Comment: Metoprolol succinate held for 24 hours prior to stress testing. BP Resting BP Supine: 138/80 mmHg Resting BP Standin/84 mmHg Max BP: 142/62 mmHg Recovery BP: 120/66 mmHg BP response to stress: Normal blood pressure response to stress. ECG Resting ECG: Sinus. RBBB. LPFB. Comment: T wave inversions in lead V2 Stress ECG: Sinus tachycardia. RBBB. LPFB. ST Change: No significant ST segment changes noted Arrhythmia: VPC's Recovery ECG: RBBB. LPFB. Recovery ST Change: No significant ST segment changes noted Recovery Arrhythmia: VPC Clinical Reason for Termination: Dyspnea Stress Symptoms: Dyspnea, Leg Fatigue Exercise duration: 7 min43 sec Highest Stage Reached: Stage 3: 3.4 mph at 14% grade. Rate Pressure Product: 17705 Stress ECG Conclusion 1. Electrocardiogram showed right bundle branch block 2. Patient underwent testing using a combination of exercise and pharmacologic stress with regadenoso n 3. Peak heart rate achieved was 75% of predicted for age 4. The electrocardiographic portion of the test was nondiagnostic due to inadequate heart rate 5. Sporadic PVCs were seen 6. See MPI report Stress Test Summary STAGE Time (mins) Speed (mph) Grade (%) HR BP SpO2 SYMPTOMS METS Supine 55 138/80 Standing 78 122/84 1 3 1.7 10 102 128/66 4.5 1 min post Lexiscan injection 111 142/62 3 min post Lexiscan injection 88 120/58 6 min post Lexiscan injection 76 120/66 Transitioned to walking Lexiscan at 1.5 mph, 0% grade after 7.43 minutes of Jared protocol due to pt' s dyspnea, leg fatigue and inability to reach target heart rate. MPI Conclusion Normal myocardial perfusion. There is no ischemia or evidence of prior infarction EF is 53%. Wall motion is normal Radiologist Interpretation Radiologist Interpretation by: Phil Em MD Interpretation Date/Time: 01/26/2022 16:53:16
[2022-01-26] MEDS: Regadenoson 0.4 MG/5 ML SYR IVP (10:52)
== END ==
PROVIDERS: PCP Family Medicine; Visit Provider Family Medicine
DX: I20.9 Angina pectoris, unspecified (principal); R06.09 Other forms of dyspnea
CPT/HCPCS: 78452; 93017; J2785

== ENCOUNTER 2022-02-09 09:52 | Outpatient (CLI) | payer OTHER, SELFPAY ==
--- NOTE | 2022-02-09 09:45 | RT.EKG_ITS ---
APPROVED REPORT Exam: Resting ECG Reason for Exam: CAD, chest pain Patient Location: O HR:78 bpm ECG Measurements Heart Rate 78 AXIS OH 181 P 10 QRSd 143 QRS 58 QT 375 T 25 QTc 428 Conclusion Sinus rhythm...normal P axis, V-rate 50- 99 PVC Right bundle branch block...QRSd>120, terminal axis(90,270) Baseline wander in lead(s) V1
== END 2022-02-09 09:53 | disposition home or self-care (01) ==
LOC: DI.CARD 09:53
PROVIDERS: PCP Family Medicine; Visit Provider Internal Medicine Cardiovascular Disease
DX: I25.10 Atherosclerotic heart disease of native coronary artery without angina pectoris (principal); R07.9 Chest pain, unspecified; R94.31 Abnormal electrocardiogram [ECG] [EKG]; I45.19 Other right bundle-branch block
CPT/HCPCS: 93010

== ENCOUNTER 2022-02-10 01:48 | Outpatient (CLI) | payer OTHER, SELFPAY ==
[2022-02-10 15:11] LABS: Abs Immature Grans 0.04 10^3/uL (0.0-0.06); Absolute Basophil Count 0.05 10^3/uL (0.0-0.2); Absolute Eosinophil Count 0.33 10^3/uL (0.0-0.7); Absolute Lymphocyte Count 2.11 10^3/uL (1.2-3.4); Absolute Monocyte Count 0.57 10^3/uL (0.1-0.8); Absolute Neutrophil Count 4.33 10^3/uL (1.2-6.7); Basophils % 0.7; Eosinophils % 4.4; HCT 37.1 % (40.0-50.0); HGB 12.4 g/dL (13.5-17.5); Immature Grans % 0.5; Lymphocytes % 28.4; MCH 30.5 pg (27.0-33.0); MCHC 33.4 % (32.0-36.0); MCV 91 fL (80-95); Monocytes % 7.7; Neutrophils % 58.3; Platelet Count 221 10^3/uL (130-400); RBC 4.06 10^6/uL (4.36-5.78); RDW-SD 42.6 fL; WBC 7.43 10^3/uL (4.4-10.8)
[2022-02-10 15:40] LABS: INR 1.1 (0.9-1.1); PTT Activated 22.1 sec (21.0-27.5); Prothrombin Time 10.7 sec (9.3-11.0)
[2022-02-10 16:55] LABS: Anion Gap 6.8 mmol/L (3-11); BUN 18 mg/dL (7-18); CO2 31.2 mmol/L (21.0-32.0); CREATININE 1.3 mg/dL (0.70-1.30); Chloride 105 mmol/L (98-107); Estimated GFR 62.89 (mL/min/1.73m2); Glucose 130 mg/dL (74-106); Potassium 3.8 mmol/L (3.5-5.1); Sodium 143 mmol/L (136-145)
== END 2022-02-10 01:49 | disposition home or self-care (01) ==
LOC: LBO 01:48
PROVIDERS: PCP Family Medicine; Visit Provider Internal Medicine Cardiovascular Disease
DX: I25.118 Atherosclerotic heart disease of native coronary artery with other forms of angina pectoris (principal); R07.9 Chest pain, unspecified; I10 Essential (primary) hypertension; E11.9 Type 2 diabetes mellitus without complications; E78.5 Hyperlipidemia, unspecified; Z01.812 Encounter for preprocedural laboratory examination
CPT/HCPCS: 36415; 80051; 82947; 84520; 82565; 85025; 85610; 85730

== ENCOUNTER 2022-05-08 08:56 | Emergency (ER) | payer OTHER, SELFPAY ==
[2022-05-08 09:13] VITALS: BP 121/74; PULSE 57; RESP 18; TEMP 37.1; O2SAT 94
--- NOTE | 2022-05-08 09:30 | DI.CT_ITS ---
Exam(s) CT ABDOMEN PELVIS W EXAM: CT ABDOMEN PELVIS W CLINICAL HISTORY: abd pain gi bleed TECHNIQUE: Imaging Protocol: Axial computed tomography images with coronal and sagittal reformatted images were created and reviewed CONTRAST MATERIAL: Intravenous: Omnipaque 350 Contrast volume:100 mL Oral: No COMPARISON: CT CT RENAL ARTERY from 06/08/2010 FINDINGS: ABDOMEN: Lung Bases: Coronary artery calcifications are present. Liver: Normal density. No measurable mass. Portal, Superior Mesenteric, and Splenic Veins: Unremarkable. Gallbladder and Biliary Tract: No radiodense calculus or dilation. Pancreas: Normal density, no abnormal calcifications or inflammatory process. Spleen: Normal. Adrenals: No masses seen. Kidneys: Normal size, contour and axis. No radiodense stones or obstructive uropathy. No masses seen. Abdominal Aorta: Abdominal portion non-dilated. There is mild atherosclerosis. Bowel: No obstruction or bowel wall thickening. Appendix is unremarkable. Peritoneal Cavity: No ascites, collection or mesenteric inflammatory response. No free air.Postsurgi chandni changes of a prior right inguinal repair. Lymph Nodes: Within normal limits. Bones: Within normal limits for the patient's age. The patient has bilateral total hip replacements. Soft Tissues: There is again seen a small fluid collection in the region of the umbilicus. It is unc hanged dating back to 2010. PELVIS: Bladder: Symmetric distention, no gross wall thickening. Portions of the urinary bladder are obscured by artifact from the patient's total hip replacements. Reproductive Organs: Unremarkable as visualized. Lymph Nodes: Within normal limits. Bones: Within normal limits for the patient's age. IMPRESSION: 1. No acute abdominal or pelvic process. 2. Findings were discussed with Malik Whiting at 11:56 a.m. on 05/08/2022. RADIATION DOSE DELIVERED: 995.04mGy.cm Total DLP DATA REPOSITORY: All CT scans at this facility are submitted to the National Radiology Data Registry (NRDR) Dose Index Registry (DIR) with the [employer] ([employer]). RADIATION OPTIMIZATION: All CT scans at this facility use at least one of these dose optimization te chniques: automated exposure control; mA and/or kV adjustment per patient size (includes targeted exa ms where dose is matched to clinical indication); or iterative reconstruction.
--- NOTE | 2022-05-08 09:35 | W.ED.GENAD ---
Discharge Plan Disposition Patient Disposition: Home Condition: Stable Discharge Details Clinical Impression: Acute lower GI bleeding Primary Care Provider: Neena Montiel V ED Provider: Malik Whiting Home Meds and New Rx's Prescriptions: No Action metoprolol succinate 100 mg tablet extended release 24 hr 150 mg PO DAILY Qty: 180 3RF tramadol 50 MG tablet 50 mg PO BID methotrexate sodium 2.5 MG tablet 2.5 mg PO 6 TABS A WEEK Label Comments: 08/14/14 takes q weekly on Sat night Rx Instructions: RECORDS STATE, 2.5MG, 6 TAB Q WEEK.HE losartan 100 MG tablet 100 mg PO DAILY Label Comments: FROM RECORD.HE terazosin 10 mg capsule 10 mg PO DAILY ezetimibe 10 mg tablet 10 mg PO DAILY solifenacin 10 mg tablet 10 mg PO DAILY pantoprazole 40 mg tablet,delayed release (DR/EC) 40 mg PO DAILY aspirin [Adult Low Dose Aspirin] 81 mg tablet,delayed release (DR/EC) 81 mg PO DAILY atorvastatin 80 mg tablet 80 mg PO DAILY prasugrel 10 mg tablet 10 mg PO DAILY nitroglycerin 0.4 mg tablet, sublingual 0.4 mg sublingual Q5M PRN Rx Instructions: do not exceed 3 doses per episode gabapentin 600 mg tablet 600 mg PO QHS Rx Instructions: take 1 tablet by mouth at dinner and 2 tablets by mouth at bedtime. folic acid 1 mg tablet 1 mg PO DAILY amlodipine 10 mg tablet 10 mg PO DAILY cyclobenzaprine 10 mg Tablet 10 mg PO BID Discharge Instructions Instructions: Rectal Bleeding (ED) Additional Instructions: Continue to take your normally prescribed medication and no medication changes are needed at this time. It is recommended that you use [id number] Metamucil 1-2 times daily. Continue to monitor your symptoms and if you have any significant worsening of your rectal bleeding or uncontrollable bleeding/hemorrhage return immediately to the emergency department for reevaluation. Otherwise it is very importantly follow-up with your primary care provider for reassessment of your blood work and condition in the next 2 to 3 days. Referrals: [facility] [Provider Group] (Once you have been on your antiplatelet therapy for greater than 1 year from your UT) Neena Montiel MD [Primary Care Provider] - 2 days Discharge Data Discharge Date/Time-TO BE ENTERED AT DEPARTURE: 05/08/22 13:43 Medical Decision Making Patient presenting to the emergency department for chief complaint of bright red blood per rectum. Patient states some slight lower abdominal pain yesterday that was very subtle and nonworrisome. This morning when patient had bowel movement had significant bright red blood per rectum and slight increase of lower abdominal pain. Patient states history of previous UT with stents and states that he is on a blood thinner but is unsure which one it is. Patient denies any injury or trauma, denies rectal pain swelling itching or discomfort. Does state over the past couple weeks he has had intermittent loose stools but denied any diarrhea. Denies fever chills, other abnormal bruising or bleeding. Physical exam shows tenderness to the lower abdomen without guarding, no CVA tenderness, mild epigastric tenderness otherwise benign exam. We will plan on checking labs and CT imaging. At this time patient's vital signs are stable and do not feel that he requires emergent transfusion at this time. Reviewed labs and patient has unremarkable CBC with no signs of anemia, CMP shows slight elevation of BUN and glucose and slightly low magnesium at 1.7 otherwise unremarkable CMP. Given possible GI effects of oral magnesium will encourage patient to increase food intake of magnesium high sources. Reviewed CT imaging with radiologist that showed no obvious or concerning findings on CT imaging. Hemoccult was positive. Given bright red blood per rectum did discuss case with general surgeon. After discussion of case patient needs to remain on antiplatelet therapy due to recent UT and stents until he has been on this therapy for 1 month. Given this he is not a candidate for urgent colonoscopy at this time. We will still place patient on follow-up list to follow-up with general surgery in 1 month as that is almost the timeframe for his antiplatelet therapy. Other than that we will refer patient to primary care provider for CBC recheck in the next 2 to 3 days. Did discuss this with patient and he is comfortable being discharged home with monitoring of symptoms and return precautions but given no acute hemorrhage I do feel he is safe to go home along with stable vital signs. He was recommended to use Metamucil once to twice daily. After discussion of diagnosis and plan of care patient has no further needs, questions, or concerns and states clear understanding to return to the emergency department for any worsening symptoms. This documentation was generated using Apprionation system, please disregard any oddities of phrase or misspellings. HPI General Mode of arrival: ambulatory. Date/Time Provider Initiated Documentation: 05/08/22 09:16. Limitations to Documentation: no limitations. Information obtained by: patient and RN notes reviewed. History of Present Illness 61 year old M presents to the emergency department with the chief complaint of Abdominal pain, described as mild, with intensity rated at 3. Quality is described as aching, and is localized to the abdomen. Patient reports no radiation. Patient started experiencing this day(s) (1) and it has been constant. No relieving factors improve symptom(s), No exacerbating factors reported . Patient notes denies fever/chills, loss of appetite, syncope and weakness. Patient did receive the following treatments prior to arrival, none Related Data Home Medications Medication Instructions Recorded Confirmed tramadol 50 mg tablet 50 mg PO BID 07/10/12 02/09/22 losartan 100 mg tablet 100 mg PO DAILY 02/01/14 02/09/22 methotrexate sodium 2.5 mg tablet 2.5 mg PO 6 TABS A WEEK 02/01/14 02/09/22 cyclobenzaprine 10 mg tablet 10 mg PO BID 03/12/20 02/09/22 amlodipine 10 mg tablet 10 mg PO DAILY 02/08/22 02/09/22 aspirin 81 mg tablet,delayed 81 mg PO DAILY 02/08/22 02/09/22 release (Adult Low Dose Aspirin) atorvastatin 80 mg tablet 80 mg PO DAILY 02/08/22 02/09/22 ezetimibe 10 mg tablet 10 mg PO DAILY 02/08/22 02/09/22 folic acid 1 mg tablet 1 mg PO DAILY 02/08/22 02/09/22 gabapentin 600 mg tablet 600 mg PO QHS 02/08/22 02/09/22 nitroglycerin 0.4 mg sublingual 0.4 mg sublingual Q5M PRN 02/08/22 02/09/22 tablet pantoprazole 40 mg tablet,delayed 40 mg PO DAILY 02/08/22 02/09/22 release prasugrel 10 mg tablet 10 mg PO DAILY 02/08/22 02/09/22 solifenacin 10 mg tablet 10 mg PO DAILY 02/08/22 02/09/22 terazosin 10 mg capsule 10 mg PO DAILY 02/08/22 02/09/22 metoprolol succinate 100 mg 150 mg PO DAILY #180 tabs 02/09/22 02/09/22 tablet,extended release 24 hr Previous Rx's Medication Instructions Recorded metoprolol succinate 100 mg 150 mg PO DAILY #180 tabs 02/09/22 tablet,extended release 24 hr Allergies Allergy/AdvReac Type Severity Reaction Status Date / Time indomethacin [From Indocin] AdvReac Nausea/VOMI Verified 02/09/22 10:07 TTIING indomethacin sodium AdvReac Nausea/VOMI Verified 02/09/22 10:07 [From Indocin] TTIING metoprolol AdvReac FATIGUE/DIZ Verified 02/09/22 10:07 ZINESS General Stated Complaint: Abd Prob MOUSTAPHA: 3 Review of Systems Constitutional Constitutional: Denies chills, Denies fever(s) and Denies poor appetite Cardiovascular Cardiovascular: Denies chest pain and Denies dyspnea Respiratory Respiratory: Denies cough and Denies dyspnea Gastrointestinal Gastrointestinal: Reports as per HPI, Reports abdominal pain, Denies melena, Reports hematochezia, Denies change in bowel habits, Denies change in stool character, Denies constipation, Denies diarrhea, Reports loose stools, Denies nausea and Denies vomiting Genitourinary Genitourinary: Denies hematuria, Denies difficulty urinating, Denies dysuria and Denies flank pain Musculoskeletal Musculoskeletal: Denies back pain Integumentary/Breasts Skin/Breast: Denies rash PFSH All Active Problems (Updated 05/08/22 @ 13:35 by Malik Whiting NP) Acute lower GI bleeding (Acute) Angina concurrent with and due to arteriosclerosis of coronary artery (Acute) Encounter for preprocedural laboratory examination (Acute) Medical History Benign hypertension Biceps tendinitis on left BPH (benign prostatic hyperplasia) CAD (coronary artery disease) Cervicalgia Chest pain Chronic obstructive lung disease Constipation COVID Diabetes MADDEN (dyspnea on exertion) HLD (hyperlipidemia) HTN (hypertension) Pqfg-Ujpac-Gwnictg disease Loose stools Low back pain Myalgia Nocturnal hypoxia Overweight Pancreatitis Peripheral neuropathy Raynauds phenomenon Recurrent pneumonia Rheumatoid arthritis Skin lesion of face Sleep apnea STEMI (ST elevation myocardial infarction) Torticollis Umbilical hernia Weakness of both arms Surgical History Amputation left ring Hernia Repair, Incisional x 4 History of bilateral hip replacements Total replacement of hip bilateral done at same setting. Social History Smoking/Tobacco Use Status: Never Smoking risk assessment performed?: Yes Alcohol Intake: never Drug use: Never Substance use type: does not use Do you feel safe at home: Yes Do you feel safe in your relationship?: Yes Exam Const General: cooperative Orientation: alert, awake and oriented x3 Resp Effort & Inspection: normal respiratory effort and able to speak in complete sentences Auscultation: clear to auscultation bilaterally Cardio Rate: regular rate Rhythm: regular rhythm Heart Sounds: S1 normal and S2 normal GI Palpation: soft, no hepatosplenomegaly, not firm, no guarding, no masses, no pulsatile masses, not rigid, no splenomegaly and tender in the epigastrum, in the LLQ and in the RLQ; not at McBurney's point, Raymond's sign negative, psoas sign negative and Rovsing's sign negative Auscultation: normal bowel sounds Rectal Exam: visual inspection normal, normal sphincter tone, No fissure, heme positive stool 2+, No hemorrhoids and No laceration Back/Spine/Pelvis Back: no CVA tenderness Neuro General: patient alert, patient awake, patient oriented x3, gait normal and moves all extremities Course Vital Signs Vital signs: Vital Signs Temperature 37.1 C 05/08/22 09:13 Pulse 57 L 05/08/22 09:13 Respiratory Rate 18 05/08/22 09:13 Blood Pressure 121/74 05/08/22 09:13 Pulse Oximetry 94 05/08/22 09:13 Temperature 37.1 C 05/08/22 09:13 Temperature Source Oral 05/08/22 09:13 Pulse 57 L 05/08/22 09:13 Respiratory Rate 18 05/08/22 09:13 Respiratory Effort Non-Labored 05/08/22 09:14 Blood Pressure 121/74 05/08/22 09:13 Pulse Oximetry 94 05/08/22 09:13 Oxygen Delivery Method Room Air 05/08/22 09:13 Oxygen Flow Rate 0 05/08/22 09:13
[2022-05-08 10:11] LABS: Abs Immature Grans 0.02 10^3/uL (0.0-0.06); Absolute Basophil Count 0.04 10^3/uL (0.0-0.2); Absolute Eosinophil Count 0.18 10^3/uL (0.0-0.7); Absolute Lymphocyte Count 1.64 10^3/uL (1.2-3.4); Absolute Monocyte Count 0.41 10^3/uL (0.1-0.8); Absolute Neutrophil Count 4.68 10^3/uL (1.2-6.7); Basophils % 0.6; Eosinophils % 2.6; HCT 40.6 % (40.0-50.0); HGB 13.7 g/dL (13.5-17.5); Immature Grans % 0.3; Lymphocytes % 23.5; MCH 30.6 pg (27.0-33.0); MCHC 33.7 % (32.0-36.0); MCV 91 fL (80-95); MPV 10.4 fL (8.0-11.0); Monocytes % 5.9; Neutrophils % 67.1; Platelet Count 205 10^3/uL (130-400); RBC 4.47 10^6/uL (4.36-5.78); RDW 13.1 % (11.8-14.1); RDW-SD 42.9 fL; WBC 6.97 10^3/uL (4.4-10.8)
[2022-05-08 10:31] LABS: ALT 29 U/L (16-63); AST 19 U/L (15-37); Albumin 3.7 g/dL (3.4-5.0); Alkaline Phosphatase 100 U/L (46-116); Anion Gap 5.7 mmol/L (3-11); BUN 23 mg/dL (7-18); Bilirubin, Total 0.4 mg/dL (0.2-1.0); CO2 30.3 mmol/L (21.0-32.0); CREATININE 1.3 mg/dL (0.70-1.30); Calcium 8.9 mg/dL (8.5-10.1); Chloride 105 mmol/L (98-107); Estimated GFR 62.89 (mL/min/1.73m2); Glucose 139 mg/dL (74-106); Lipase 57 U/L (16-77); Magnesium 1.7 mg/dL (1.8-2.4); Potassium 3.8 mmol/L (3.5-5.1); Sodium 141 mmol/L (136-145); Total Protein 6.5 g/dL (6.4-8.2)
--- NOTE | 2022-05-08 11:05 | NUR.NOTE ---
this RN present for rectal exam
[2022-05-08] MEDS: Omnipaque 350 MG/ML 500 ML BTL-Imaging package IJ (11:28)
[2022-05-08] MEDS: Normal Saline - Diluent 50 ML VIAL IJ (11:28)
[2022-05-08 12:46] VITALS: BP 120/66; PULSE 61; RESP 18; O2SAT 95
--- NOTE | 2022-05-08 13:20 | W.PM.PROGNOT ---
Objective Last Vital Signs Temp 37.1 C 05/08/22 09:13 Pulse 61 05/08/22 12:46 Resp 18 05/08/22 12:46 BP 120/66 05/08/22 12:46 Pulse Ox 95 05/08/22 12:46 Laboratory Results - last 24 hr 05/08/22 05/08/22 05/08/22 09:31 10:00 10:00 WBC 6.97 RBC 4.47 Hgb 13.7 Hct 40.6 MCV 91 MCH 30.6 MCHC 33.7 RDW 13.1 Plt Count 205 MPV 10.4 Immature Gran % 0.3 Neutrophils % 67.1 Lymphocytes % 23.5 Monocytes % 5.9 Eosinophils % 2.6 Basophils % 0.6 Nucleated RBC % 0.0 Absolute Neutrophils 4.68 Absolute Lymphocytes 1.64 Absolute Monocytes 0.41 Absolute Eosinophils 0.18 Absolute Basophils 0.04 Sodium Potassium Chloride Carbon Dioxide Anion Gap BUN Creatinine Est GFR (CKD-EPI 2020) Glucose Calcium Magnesium Cancelled Total Bilirubin AST ALT Alkaline Phosphatase Total Protein Albumin Lipase Cancelled Patient ABO/Rh A Positive Antibody Screen NEGATIVE 05/08/22 10:10 WBC RBC Hgb Hct MCV MCH MCHC RDW Plt Count MPV Immature Gran % Neutrophils % Lymphocytes % Monocytes % Eosinophils % Basophils % Nucleated RBC % Absolute Neutrophils Absolute Lymphocytes Absolute Monocytes Absolute Eosinophils Absolute Basophils Sodium 141 Potassium 3.8 Chloride 105 Carbon Dioxide 30.3 Anion Gap 5.7 BUN 23 H Creatinine 1.3 Est GFR (CKD-EPI 2020) 62.89 Glucose 139 H Calcium 8.9 Magnesium 1.7 L Total Bilirubin 0.4 AST 19 ALT 29 Alkaline Phosphatase 100 Total Protein 6.5 Albumin 3.7 Lipase 57 Patient ABO/Rh Antibody Screen
--- NOTE | 2022-05-08 13:51 | NUR.NOTE ---
Nursing Note: Referral faxed to PCP for repeat CBC and rectal bleeding; in 2 to 3 days. Referral faxed to [facility] for GI bleeding in [address] Baig about this patient.
== END 2022-05-08 13:43 | disposition home or self-care (01) ==
PROVIDERS: Emergency Provider Nurse Practitioner Family; PCP Family Medicine
DX: K92.2 Gastrointestinal hemorrhage, unspecified (principal); E83.42 Hypomagnesemia; I10 Essential (primary) hypertension; I25.2 Old myocardial infarction; R79.89 Other specified abnormal findings of blood chemistry; Z86.16 Personal history of COVID-19
CPT/HCPCS: 36415; 80053; 83690; 86850; 86900; 86901; 99285; 74177; 83735; 85025; 99284

== ENCOUNTER 2022-05-10 10:34 | Outpatient (REF) | payer OTHER, SELFPAY ==
[2022-05-10 15:25] LABS: Abs Immature Grans 0.02 10^3/uL (0.0-0.06); Absolute Basophil Count 0.05 10^3/uL (0.0-0.2); Absolute Eosinophil Count 0.22 10^3/uL (0.0-0.7); Absolute Lymphocyte Count 1.51 10^3/uL (1.2-3.4); Absolute Monocyte Count 0.39 10^3/uL (0.1-0.8); Absolute Neutrophil Count 4.63 10^3/uL (1.2-6.7); Basophils % 0.7; Eosinophils % 3.2; HCT 40.7 % (40.0-50.0); HGB 13.7 g/dL (13.5-17.5); Immature Grans % 0.3; Lymphocytes % 22.1; MCH 30.4 pg (27.0-33.0); MCHC 33.7 % (32.0-36.0); MCV 90 fL (80-95); MPV 11.3 fL (8.0-11.0); Monocytes % 5.7; Platelet Count 205 10^3/uL (130-400); RBC 4.51 10^6/uL (4.36-5.78); RDW 13.1 % (11.8-14.1); RDW-SD 42.6 fL; WBC 6.82 10^3/uL (4.4-10.8)
[2022-05-10 15:47] LABS: Hemoglobin A1C 6.5 % (<5.7)
== END 2022-05-10 10:35 | disposition home or self-care (01) ==
LOC: NCHCN 10:34
PROVIDERS: PCP Family Medicine; Visit Provider Family Medicine
DX: E11.9 Type 2 diabetes mellitus without complications (principal); K62.5 Hemorrhage of anus and rectum
CPT/HCPCS: 83036; 85025

== ENCOUNTER 2022-05-16 15:56 | Outpatient (REF) | payer OTHER, SELFPAY ==
[2022-05-16 15:58] LABS: ESR 2 mm/hr (0-20)
[2022-05-16 16:09] LABS: C-Reactive Protein < 0.05 mg/dL (0.0-0.3)
[2022-05-16 22:51] LABS: PSA, Screening 0.9 ng/mL (<=4.5)
== END 2022-05-16 15:57 | disposition home or self-care (01) ==
LOC: NCHCN 15:56
PROVIDERS: PCP Family Medicine; Visit Provider Family Medicine
DX: Z00.00 Encounter for general adult medical examination without abnormal findings (principal); K62.5 Hemorrhage of anus and rectum; Z86.79 Personal history of other diseases of the circulatory system; Z12.5 Encounter for screening for malignant neoplasm of prostate; E11.9 Type 2 diabetes mellitus without complications; I25.2 Old myocardial infarction
CPT/HCPCS: 84153; 85652; 86140

== ENCOUNTER 2022-06-27 10:35 | Emergency (ER) | payer OTHER, SELFPAY ==
[2022-06-27] VITALS (40 sets, daily range): BP systolic 96–119; BP diastolic 59–76; PULSE 42–64; RESP 10–18; TEMP 36.5; O2SAT 96
--- NOTE | 2022-06-27 10:38 | RT.EKG_ITS ---
APPROVED REPORT Exam: Resting ECG Reason for Exam: SOB Patient Location: E HR:53 bpm ECG Measurements Heart Rate 53 AXIS AK 219 P 30 QRSd 154 QRS 75 QT 445 T 33 QTc 417 Conclusion Sinus bradycardia.. Prolonged AK interval...AK >210, Right bundle branch block..
--- NOTE | 2022-06-27 10:45 | DI.RAD_ITS ---
Exam(s) XR PORTABLE CHEST AP EXAM: XR PORTABLE CHEST AP CLINICAL HISTORY: SOB, Chest Pain TECHNIQUE: 2D digital imaging was performed of the chest. One image was obtained. An AP view was ob tained. COMPARISON: CR XR PORTABLE CHEST AP from 06/03/2021 FINDINGS: MEDIASTINUM: Normal. HEART: Upper limits of normal in size given the projection. It appears unchanged compared to the [place] or examination. PULMONARY VASCULATURE: Normal. LUNGS: Clear. PLEURAL SPACE: No pleural effusion or pneumothorax. BONE:Within normal limits for the patient's age. OTHER FINDINGS:Normal. IMPRESSION: No acute pulmonary findings. DATA REPOSITORY: RADIATION DOSE DELIVERED:
--- NOTE | 2022-06-27 10:50 | W.ED.GENAD ---
Discharge Plan Disposition Patient Disposition: Home Condition: Stable Discharge Details Clinical Impression: Chest pain, Dyspnea Primary Care Provider: Neena Montiel V ED Provider: Sandi Novoa Home Meds and New Rx's Prescriptions: Continued losartan 100 MG tablet 100 mg PO DAILY Patient Comments: FROM RECORD.HE pantoprazole 40 mg tablet,delayed release (DR/EC) 40 mg PO DAILY aspirin [Adult Low Dose Aspirin] 81 mg tablet,delayed release (DR/EC) 81 mg PO DAILY atorvastatin 80 mg tablet 80 mg PO DAILY No Action metoprolol succinate 100 mg tablet extended release 24 hr 150 mg PO DAILY Qty: 180 3RF tramadol 50 MG tablet 50 mg PO BID methotrexate sodium 2.5 MG tablet 2.5 mg PO 6 TABS A WEEK Patient Comments: 08/14/14 takes q weekly on Sat night Rx Instructions: RECORDS STATE, 2.5MG, 6 TAB Q WEEK.HE terazosin 10 mg capsule 10 mg PO DAILY ezetimibe 10 mg tablet 10 mg PO DAILY solifenacin 10 mg tablet 10 mg PO DAILY prasugrel 10 mg tablet 10 mg PO DAILY nitroglycerin 0.4 mg tablet, sublingual 0.4 mg sublingual Q5M PRN Rx Instructions: do not exceed 3 doses per episode gabapentin 600 mg tablet 600 mg PO QHS Rx Instructions: take 1 tablet by mouth at dinner and 2 tablets by mouth at bedtime. folic acid 1 mg tablet 1 mg PO DAILY amlodipine 10 mg tablet 10 mg PO DAILY cyclobenzaprine 10 mg Tablet 10 mg PO BID Discharge Instructions Instructions: Chest Pain (ED), Dyspnea (ED) Additional Instructions: At this time cardiac work-up is negative. I do suspect that the amount of blood pressure medications that you are taking may have something to do with your symptoms. Please have an outpatient stress test and echocardiogram done. You do need to follow-up with a snack foods mixer operator. Follow up with primary care provider in 3-5 days. Return to ED sooner if any worsening or concerns. Increase oral fluids. Referrals: Neena Montiel MD [Primary Care Provider] - 5 days Regina Bradshaw MD [ [facility] STAFF PHYSICIAN] - 2 weeks Medical Decision Making 61-year-old male presents to the ER with a chief complaint of shortness of breath with exertion for the last 3 days. He also reports some chest stiffness. He did take a nitro yesterday. Reports dyspnea walking to the ER. He denies any nausea vomiting, does report some loose stools.PMHx CAD< Covid,BPH,DM,STEMI, He did have stents placed. EKG was reviewed by ER attending, EKG shows a right bundle branch block, old, EKG available. Cardiac work-up ordered including serial troponin, proBNP and chest x-ray Reevaluation, patient has no complaints of chest pain discussed labs and verbalizes understanding. He is willing to wait for the 3-hour troponin. He is on amlodipine, higher, losartan which may contribute to his heart rate.?Dyspnea This text was generated using [employer] system, please disregard any oddities of phrase or misspellings. Medical Records Medical records reviewed: Yes I reviewed the patient's medical records. Lab Data Lab results reviewed: Yes I reviewed the patient's lab results. Labs: Laboratory Tests Range/Units 06/27/22 06/27/22 06/27/22 10:59 10:59 10:59 WBC (4.4-10.8) 10^3/uL 6.18 RBC (4.36-5.78) 10^6/uL 4.41 Hgb (13.5-17.5) g/dL 13.7 Hct (40.0-50.0) % 39.7 L MCV (80-95) fL 90 MCH (27.0-33.0) pg 31.1 MCHC (32.0-36.0) % 34.5 RDW (11.8-14.1) % 12.9 Plt Count (130-400) 10^3/uL 218 MPV (8.0-11.0) fL 10.3 Immature Gran % 0.3 Neutrophils % 65.3 Lymphocytes % 27.0 Monocytes % 4.0 Eosinophils % 2.9 Basophils % 0.5 Nucleated RBC % (0.0-0.3) % 0.0 Absolute Neutrophils (1.2-6.7) 10^3/uL 4.03 Absolute Lymphocytes (1.2-3.4) 10^3/uL 1.67 Absolute Monocytes (0.1-0.8) 10^3/uL 0.25 Absolute Eosinophils (0.0-0.7) 10^3/uL 0.18 Absolute Basophils (0.0-0.2) 10^3/uL 0.03 Sodium (136-145) mmol/L 140 Potassium (3.5-5.1) mmol/L 4.3 Chloride (98-107) mmol/L 104 Carbon Dioxide (21.0-32.0) mmol/L 29.3 Anion Gap (3-11) mmol/L 6.7 BUN (7-18) mg/dL 29 H Creatinine (0.70-1.30) mg/dL 1.5 H Est GFR (CKD-EPI 2020) (mL/min/1.73m2) 52.97 Glucose (74-106) mg/dL 146 H Calcium (8.5-10.1) mg/dL 9.4 Magnesium (1.8-2.4) mg/dL 1.9 Total Bilirubin (0.2-1.0) mg/dL 0.6 AST (15-37) U/L 22 ALT (16-63) U/L 34 Alkaline Phosphatase (46-116) U/L 123 H Troponin I (<or=60) ng/L < 50 NT-Pro-B Natriuret Pep (<300) pg/mL 191 Cancelled Total Protein (6.4-8.2) g/dL 7.2 Albumin (3.4-5.0) g/dL 4.1 HPI General Mode of arrival: ambulatory. Date/Time Provider Initiated Documentation: 06/27/22 10:36. Limitations to Documentation: no limitations. Information obtained by: patient, RN notes reviewed and old records reviewed. HPI Narrative: 61-year-old male presents to the ER with a chief complaint of shortness of breath with exertion for the last 3 days. He also reports some chest stiffness. He did take a nitro yesterday. Reports dyspnea walking to the ER. He denies any nausea vomiting, does report some loose stools.PMHx CAD< Covid,BPH,DM,STEMI, He did have stents placed. Related Data Home Medications Medication Instructions Recorded Confirmed tramadol 50 mg tablet 50 mg PO BID 07/10/12 06/27/22 losartan 100 mg tablet 100 mg PO DAILY 02/01/14 06/27/22 methotrexate sodium 2.5 mg tablet 2.5 mg PO 6 TABS A WEEK 02/01/14 06/27/22 cyclobenzaprine 10 mg tablet 10 mg PO BID 03/12/20 06/27/22 amlodipine 10 mg tablet 10 mg PO DAILY 02/08/22 06/27/22 aspirin 81 mg tablet,delayed 81 mg PO DAILY 02/08/22 06/27/22 release (Adult Low Dose Aspirin) atorvastatin 80 mg tablet 80 mg PO DAILY 02/08/22 06/27/22 ezetimibe 10 mg tablet 10 mg PO DAILY 02/08/22 06/27/22 folic acid 1 mg tablet 1 mg PO DAILY 02/08/22 06/27/22 gabapentin 600 mg tablet 600 mg PO QHS 02/08/22 06/27/22 nitroglycerin 0.4 mg sublingual 0.4 mg sublingual Q5M PRN 02/08/22 06/27/22 tablet pantoprazole 40 mg tablet,delayed 40 mg PO DAILY 02/08/22 06/27/22 release prasugrel 10 mg tablet 10 mg PO DAILY 02/08/22 06/27/22 solifenacin 10 mg tablet 10 mg PO DAILY 02/08/22 06/27/22 terazosin 10 mg capsule 10 mg PO DAILY 02/08/22 06/27/22 metoprolol succinate 100 mg 150 mg PO DAILY #180 tabs 02/09/22 06/27/22 tablet,extended release 24 hr Previous Rx's Medication Instructions Recorded metoprolol succinate 100 mg 150 mg PO DAILY #180 tabs 02/09/22 tablet,extended release 24 hr Allergies Allergy/AdvReac Type Severity Reaction Status Date / Time indomethacin [From Indocin] AdvReac Nausea/VOMI Verified 02/09/22 10:07 TTIING indomethacin sodium AdvReac Nausea/VOMI Verified 02/09/22 10:07 [From Indocin] TTIING metoprolol AdvReac FATIGUE/DIZ Verified 02/09/22 10:07 ZINESS General Stated Complaint: Chest Pain MOUSTAPHA: 3 Review of Systems All systems reviewed & are unremarkable except as noted in HPI and below Cardiovascular Cardiovascular: Reports chest pain, Denies radiating jaw, neck or arm pain and Reports dyspnea on exertion Respiratory Respiratory: Denies cough, Reports dyspnea on exertion and Denies wheezing Gastrointestinal Gastrointestinal: Reports loose stools, Denies nausea and Denies vomiting Allergic/Immunologic Allergic/Immunologic: Denies wheezing PFSH All Active Problems (Updated 06/27/22 @ 14:04 by Sandi Novoa NP) Chest pain (Acute) Dyspnea (Acute) Angina concurrent with and due to arteriosclerosis of coronary artery (Acute) Encounter for preprocedural laboratory examination (Acute) Medical History Benign hypertension Biceps tendinitis on left BPH (benign prostatic hyperplasia) CAD (coronary artery disease) Cervicalgia Chest pain Chronic obstructive lung disease Constipation COVID Diabetes MADDEN (dyspnea on exertion) HLD (hyperlipidemia) HTN (hypertension) Jfhf-Mwatd-Ruydizz disease Loose stools Low back pain Myalgia Nocturnal hypoxia Overweight Pancreatitis Peripheral neuropathy Raynauds phenomenon Recurrent pneumonia Rheumatoid arthritis Skin lesion of face Sleep apnea STEMI (ST elevation myocardial infarction) Torticollis Umbilical hernia Weakness of both arms Surgical History Amputation left ring Hernia Repair, Incisional x 4 History of bilateral hip replacements Total replacement of hip bilateral done at same setting. Social History Smoking/Tobacco Use Status: Never Smoking risk assessment performed?: Yes Alcohol Intake: never Drug use: Never Substance use type: does not use Do you feel safe at home: Yes Do you feel safe in your relationship?: Yes Exam Narrative Exam Narrative: Constitutional: Alert and oriented x3. Appears stated age. Normal body habitus. Head: Normocephalic, no trauma. Eyes: Pupils PERRL, Red reflex noted, EOM's intact. Eyelids symmetrical without lesions, discharge, or swelling. ENT: Bilateral TM's WNL, External ear normal to inspection, no mastoid TTP, swelling, or erythema, Nasal turbinates WNL, no nasal discharge. Normal dentition, Posterior pharynx WNL, no exudate. Chest: RRR, Normal S1, S2, distal pulses intact. Resp: Lungs clear to auscultation bilaterally, no wheezes, rales, or rhonchi. Abdomen: Soft, non-distended, Normoactive bowel sounds all 4 quads. Musculoskeletal: Normal gait, 5/5 strength to all four extremities. Skin: No suspicious rashes or lesions. Capillary refill less than 2 sec. Neurologic: Cranial nerves II-XII intact. Alert and oriented x 3. Motor: No deficits noted. Sensory: Intact bilaterally all 4 extremities. Reflexes: DTR's intact bilaterally.. Hematologic/Lymphatic: No ecchymosis, no lymphadenopathy. Course Vital Signs Vital signs: Vital Signs Temperature 36.5 C 06/27/22 10:40 Pulse 64 06/27/22 10:40 Respiratory Rate 18 06/27/22 10:40 Blood Pressure 119/60 06/27/22 10:40 Pulse Oximetry 96 06/27/22 10:40 Temperature 36.5 C 06/27/22 10:40 Temperature Source Oral 06/27/22 10:40 Pulse 64 06/27/22 10:40 Respiratory Rate 18 06/27/22 10:40 Respiratory Effort Normal 06/27/22 10:44 Blood Pressure 119/60 06/27/22 10:40 Blood Pressure Position Sitting 06/27/22 10:40 Pulse Oximetry 96 06/27/22 10:40 Oxygen Delivery Method Room Air 06/27/22 10:40 Oxygen Flow Rate 0 06/27/22 10:40 Pain Level 3 06/27/22 10:40
[2022-06-27] MEDS: Normal Saline Flush 10 ML SYR IVP (11:08)
[2022-06-27 11:09] LABS: Abs Immature Grans 0.02 10^3/uL (0.0-0.06); Absolute Basophil Count 0.03 10^3/uL (0.0-0.2); Absolute Eosinophil Count 0.18 10^3/uL (0.0-0.7); Absolute Lymphocyte Count 1.67 10^3/uL (1.2-3.4); Absolute Monocyte Count 0.25 10^3/uL (0.1-0.8); Absolute Neutrophil Count 4.03 10^3/uL (1.2-6.7); Basophils % 0.5; Eosinophils % 2.9; HCT 39.7 % (40.0-50.0); HGB 13.7 g/dL (13.5-17.5); Immature Grans % 0.3; MCH 31.1 pg (27.0-33.0); MCHC 34.5 % (32.0-36.0); MCV 90 fL (80-95); MPV 10.3 fL (8.0-11.0); Neutrophils % 65.3; Platelet Count 218 10^3/uL (130-400); RBC 4.41 10^6/uL (4.36-5.78); RDW 12.9 % (11.8-14.1); RDW-SD 42.2 fL; WBC 6.18 10^3/uL (4.4-10.8)
[2022-06-27 11:30] LABS: ALT 34 U/L (16-63); AST 22 U/L (15-37); Albumin 4.1 g/dL (3.4-5.0); Alkaline Phosphatase 123 U/L (46-116); Anion Gap 6.7 mmol/L (3-11); BUN 29 mg/dL (7-18); Bilirubin, Total 0.6 mg/dL (0.2-1.0); CO2 29.3 mmol/L (21.0-32.0); CREATININE 1.5 mg/dL (0.70-1.30); Calcium 9.4 mg/dL (8.5-10.1); Chloride 104 mmol/L (98-107); Estimated GFR 52.97 (mL/min/1.73m2); Glucose 146 mg/dL (74-106); Magnesium 1.9 mg/dL (1.8-2.4); NT-proBNP 191 pg/mL (<300); Potassium 4.3 mmol/L (3.5-5.1); Sodium 140 mmol/L (136-145); Total Protein 7.2 g/dL (6.4-8.2); Troponin I < 50 ng/L (<or=60)
--- NOTE | 2022-06-27 13:15 | RT.EKG_ITS ---
APPROVED REPORT Exam: Resting ECG Reason for Exam: Repeat Patient Location: E HR:44 bpm ECG Measurements Heart Rate 44 AXIS TN 231 P 37 QRSd 167 QRS 26 QT 480 T 36 QTc 412 Conclusion Sinus bradycardia. Prolonged TN interval Right bundle branch block
[2022-06-27 13:56] LABS: Troponin I < 50 ng/L (<or=60)
--- NOTE | 2022-06-27 16:00 | NUR.NOTE ---
Nursing Note: Stress test order (Regular Exercise Treadmill Test) faxed to [facility] for scheduling for?chest pain, coronary artery disease, and sob. Beta guillaume not to be held. Instructions given to patient.
== END 2022-06-27 14:24 | disposition home or self-care (01) ==
PROVIDERS: Emergency Provider Registered Nurse Emergency; PCP Family Medicine
DX: R07.89 Other chest pain (principal); R06.02 Shortness of breath; E11.9 Type 2 diabetes mellitus without complications; I45.10 Unspecified right bundle-branch block; J44.9 Chronic obstructive pulmonary disease, unspecified; I10 Essential (primary) hypertension
CPT/HCPCS: 80053; 93005; 99283; 71045; 83735; 83880; 84484; 85025; 93010; 99284; J3490

== ENCOUNTER 2022-08-18 14:48 | Outpatient (REF) | payer OTHER, SELFPAY ==
[2022-08-18 15:38] LABS: HCT 41.5 % (40.0-50.0)
[2022-08-18 15:52] LABS: Anion Gap 6.4 mmol/L (3-11); BUN 24 mg/dL (7-18); CO2 31.6 mmol/L (21.0-32.0); CREATININE 1.3 mg/dL (0.70-1.30); Calcium 9.9 mg/dL (8.5-10.1); Chloride 102 mmol/L (98-107); Estimated GFR 62.89 (mL/min/1.73m2); Glucose 164 mg/dL (74-106); Potassium 4.4 mmol/L (3.5-5.1); Sodium 140 mmol/L (136-145)
[2022-08-18 16:47] LABS: Hemoglobin A1C 6.4 % (<5.7)
== END 2022-08-18 14:49 | disposition home or self-care (01) ==
LOC: NCHCN 14:48
PROVIDERS: PCP Family Medicine; Visit Provider Family Medicine
DX: E11.9 Type 2 diabetes mellitus without complications (principal); K62.5 Hemorrhage of anus and rectum; Z86.79 Personal history of other diseases of the circulatory system
CPT/HCPCS: 80048; 83036; 85014; 85018

== ENCOUNTER 2022-11-24 02:24 | Outpatient (CLI) | payer OTHER, SELFPAY ==
[2022-11-24] MEDS: Inhaler, Assist Device 1 EACH MC (16:37)
[2022-11-24] MEDS: Albuterol HFA 18 GM 200 PUFF INH IH (16:37)
--- NOTE | 2022-11-28 10:04 | W.PFT ---
Date of service: 11/24/22 Time of Service: 14:56 Pulmonary Function Test Result Indications: Dyspnea on exertion Interpretation Spirometry: There is no airflow limitation. No significant bronchodilator response. Lung Volumes: Normal lung volumes Diffusion Capacity: Normal diffusion Airway Pressure: Normal airways resistance Impression Normal pulmonary function testing Clinical Correlation therefore is recommended.
== END 2022-11-24 02:25 | disposition home or self-care (01) ==
LOC: RT 02:25
PROVIDERS: PCP Family Medicine; Visit Provider Family Medicine
DX: R91.8 Other nonspecific abnormal finding of lung field (principal); Z77.090 Contact with and (suspected) exposure to asbestos; R06.09 Other forms of dyspnea
CPT/HCPCS: 94060; 94726; 94729

== ENCOUNTER → 2022-12-18 14:49 | Outpatient (CLI) | payer OTHER, SELFPAY ==
--- NOTE | 2022-12-18 12:18 | DI.RAD_ITS ---
Exam(s) XR HIP PELVIS ADULT BL EXAM: XR HIP PELVIS ADULT BL CLINICAL HISTORY: BILAT HIP PAIN, Z96.643, H/O BILAT TOTAL ARTHROPLASTY. TECHNIQUE: 2D digital imaging was performed of the pelvis and bilateral hips. Five images were obta ined. AP pelvis and lateral views of both hips were obtained. COMPARISON: CR RT HIP COMPLETE AP PELVIS from 01/29/2014 FINDINGS: BONES: No acute fracture is present. No bony destructive lesion is seen. JOINTS: No dislocation present. There are bilateral total hip replacements which appear in good posit ion. There is no evidence of hardware failure. There are degenerative changes seen in the lower lum bar spine. There are mild degenerative changes seen at the sacroiliac joints. SOFT TISSUE: Normal. IMPRESSION: Stable bilateral total hip replacements. No acute abnormality. DATA REPOSITORY: RADIATION DOSE DELIVERED:
== END ==
PROVIDERS: PCP Family Medicine; Visit Provider Physician Assistant Surgical
DX: M25.552 Pain in left hip (principal); M25.551 Pain in right hip; Z96.643 Presence of artificial hip joint, bilateral; Z47.1 Aftercare following joint replacement surgery
CPT/HCPCS: 73521

== ENCOUNTER 2022-12-27 15:11 | Outpatient (REF) | payer OTHER, SELFPAY ==
[2022-12-27 16:02] LABS: Anion Gap 9.6 mmol/L (3-11); BUN 42 mg/dL (7-18); CO2 28.4 mmol/L (21.0-32.0); CREATININE 1.8 mg/dL (0.70-1.30); Calcium 9.8 mg/dL (8.5-10.1); Chloride 100 mmol/L (98-107); Glucose 135 mg/dL (74-106); Potassium 3.6 mmol/L (3.5-5.1); Sodium 138 mmol/L (136-145)
== END 2022-12-27 15:12 | disposition home or self-care (01) ==
LOC: NCHCN 15:11
PROVIDERS: PCP Family Medicine; Visit Provider Family Medicine
DX: Z00.00 Encounter for general adult medical examination without abnormal findings (principal); E11.9 Type 2 diabetes mellitus without complications; I10 Essential (primary) hypertension
CPT/HCPCS: 80048; 83735

== ENCOUNTER → 2023-01-12 02:48 | Outpatient (CLI) | payer OTHER, SELFPAY ==
--- NOTE | 2023-01-12 07:30 | DI.US_ITS ---
APPROVED REPORT EXAM: Comprehensive 2D, Doppler, and color-flow Echocardiogram Patient Location: Out-Patient [employer] Cook: Tesha Hearn RDCS (AE) Indications: Asbestos exposure, Abnormal lung field, Angina, MADDEN, Chest discomfort Other Information Study Quality: Good Conclusion Normal left ventricular wall thickness and chamber size. Ejection fraction is 60%. Wall motion is n ormal Normal right ventricular size and systolic function Both atria are normal in size Aortic valve is mildly sclerotic and trileaflet without stenosis or regurgitation Normal mitral valve with trace to mild regurgitation Normal tricuspid valve with trace regurgitation. Estimated right ventricular systolic pressure is 16 mmHg Mildly dilated ascending aorta 3.50 cm Wall motion Left Ventricle The left ventricle is normal size. The left ventricular systolic function is normal. The left ventric ular ejection fraction is within the normal range. There is normal left ventricular wall thickness. T here is normal LV segmental wall motion. There is no ventricular septal defect visualized. LVEF is 60 %. Right Ventricle The right ventricle is normal size. The right ventricular systolic function is normal. Atria The left atrium size is normal. The right atrium size is normal. The interatrial septum is intact wit h no evidence for an atrial septal defect. Aortic Valve The Aortic valve is mildly sclerotic. Aortic valve is trileaflet. There is no aortic valvular stenosi s. Mitral Valve The mitral valve is normal in structure. No evidence of mitral valve stenosis. Trace to mild mitral regurgitation. Tricuspid Valve The tricuspid valve is normal in structure. There is no tricuspid valve stenosis. Trace tricuspid reg urgitation. The RVSP is 16.0 mmHg. Pulmonic Valve The pulmonary valve is normal in structure. There is no pulmonic valvular stenosis. Trace pulmonic re gurgitation. Great Vessels The aortic root is normal in size. The ascending aorta is mildly dilated. Aortic arch is normal in ca liber. IVC is normal in size and collapses >50% with inspiration. Pericardium There is no pericardial effusion. 2D Dimensions IVSD d PLAX 0.79 cm M: 0.6-1.2 Ao Root d 3.01 cm M: 3.1 - 3.7 LVPW d PLAX 0.81 cm M: 0.6 - 1.2 Ao Asc Diam d 3.50 cm M: 2.6 - 3.4 LVID d PLAX 5.51 cm M: 4.2 - 5.8 LVDs 3.71 cm M: 2.5 - 4.0 LV EF Teichholz 60.5 % FS 32.65 % LV EDV (Teich) 147.8 mL LV ESV (Teich) 58.5 mL M-Mode TAPSE 2.38 cm (M/F) >1.7 Auto EF LV EDV A4C 164.4 mL LV EDV A2C 146.7 mL LV EDV BP 155.2 mL LV ESV A4C 66.9 mL LV ESV A2C 60.1 mL LV ESV BP 62.7 mL LVEF(%) A4C 59.3 % LVEF(%) A2C 59.0 % LVEF(%) BP 59.6 % LV SV A4C 97.5 ml LV SV A2C 86.6 ml LV SV BP 92.5 ml LV CO A4C 4.8 L/min LV CO A2C 4.6 L/min LV CO BP 4.7 L/min HR A4C 49.39 BPM HR A2C 52.79 BPM LV EDV Index (BP) RV Strain Global Peak Long. Strain A4C 13.15 Global Peak Long. Strain A4C FW 13.43 LA Volume LA Length A4C 6.2 cm LA Length A2C 5.3 cm LA Area A4C s 21.82 cm2 LA Area A2C s 20.73 cm2 LA Vol A4C A-L 65.69 mL LA Vol A2C A-L 68.51 mL LA Vol Biplane A-L 72.1 mL LA Vol/BSA A4C A-L LA Vol/BSA A2C A-L LA Vol/BSA BP A-L 33.5 mL/m2 LA Vol A4C MOD 58.7 mL LA Vol A2C MOD 65.9 mL LA Vol BP MOD 66.6 mL RA Volume RA Area A4C 14.6 cm2 RA ESV A4C (A-L) 36.0mL RA Vol/BSA A4C A-L RA Length A4C 5.0 cm RA ESV A4C (MOD) 35.5mL LV Diastology MV E' medial 0.074 (>0.07 m/s) MV E Vmax 0.81 (0.4-1.3 m/s) MV E/E' MED 10.91 (<14) MV A Vmax 0.70 (0.4-1.3 m/s) MV E' lateral 0.133 (>0.1 m/s) E/A Ratio 1.2 MV E/E' LAT 6.08 (<14) MV E' Average 0.104 m/s MV E/E'(average) 7.81 Aortic Valve AoV Vmax 1.69 m/s LVOT Vmax 1.18 m/s AoV Peak Grad 11.4 mmHg LVOT Peak Grad 5.6 mmHg AoV Area (Vmax) 2.25 cm2 LVOT VTI 0.310 m AoV VTI 0.419 m LVOT Mean Grad 3.4 mmHg AoV Mean Michael. 1.18 m/s LVOT SV 99.16 mL AoV Mean Grad 6.4 mmHg LVOT Diam s 2.00 cm AoV Area (VTI) 2.37 cm2 Velocity Ratio 0.70 Mitral Valve MV DT 184 (160-240 msec) MV Vmax TIPS 0.84 m/s MV Mean Grad 1.0 (<2mmHg) MV VTI 0.341 m Pulmonary Valve PV Vmax 0.90 (0.5-1.5 m/s) RVOT Vmax 0.54 m/s PV Peak Grad 3.3 mmHg RVOT Peak Gr. 1.2 mmHg PV Mean Michael 0.69 m/s RVOT VTI 0.143 m PV Mean Grad 2.1 mmHg RVOT Mean Gr. 0.7 mmHg Tricuspid Valve RA Pressure 3.00 mmHg TR Vmax 1.80 m/s TV S' 0.09 m/s TR Peak Grad 13.0 mmHg RVSP (TR) 16.0 mmHg
== END ==
PROVIDERS: PCP Family Medicine; Visit Provider Family Medicine
DX: Z77.090 Contact with and (suspected) exposure to asbestos (principal); R91.8 Other nonspecific abnormal finding of lung field; R06.09 Other forms of dyspnea
CPT/HCPCS: 93306

== ENCOUNTER 2023-01-26 15:55 | Outpatient (REF) | payer OTHER, SELFPAY ==
[2023-01-26 15:58] LABS: ALT 31 U/L (16-63); AST 19 U/L (15-37); Alkaline Phosphatase 122 U/L (46-116); Anion Gap 10.3 mmol/L (3-11); BUN 35 mg/dL (7-18); Bilirubin, Total 0.4 mg/dL (0.2-1.0); CO2 28.7 mmol/L (21.0-32.0); CREATININE 1.4 mg/dL (0.70-1.30); Calcium 9.7 mg/dL (8.5-10.1); Chloride 103 mmol/L (98-107); Estimated GFR 57.18 (mL/min/1.73m2); Glucose 160 mg/dL (74-106); Potassium 4.3 mmol/L (3.5-5.1); Sodium 142 mmol/L (136-145); Total Protein 7.2 g/dL (6.4-8.2)
== END 2023-01-26 15:56 | disposition home or self-care (01) ==
LOC: NCHCN 15:55
PROVIDERS: PCP Family Medicine; Visit Provider Family Medicine
DX: E11.9 Type 2 diabetes mellitus without complications (principal); R06.09 Other forms of dyspnea; R60.0 Localized edema
CPT/HCPCS: 80053

== ENCOUNTER 2023-04-27 11:18 | Outpatient (REF) | payer OTHER, SELFPAY ==
[2023-04-27 15:47] LABS: Abs Immature Grans 0.02 10^3/uL (0.0-0.06); Absolute Basophil Count 0.05 10^3/uL (0.0-0.2); Absolute Eosinophil Count 0.28 10^3/uL (0.0-0.7); Absolute Lymphocyte Count 1.63 10^3/uL (1.2-3.4); Absolute Monocyte Count 0.47 10^3/uL (0.1-0.8); Absolute Neutrophil Count 5.16 10^3/uL (1.2-6.7); Basophils % 0.7; Eosinophils % 3.7; HCT 41.5 % (40.0-50.0); HGB 13.6 g/dL (13.5-17.5); Immature Grans % 0.3; Lymphocytes % 21.4; MCH 29.4 pg (27.0-33.0); MCHC 32.8 % (32.0-36.0); MCV 90 fL (80-95); MPV 11.4 fL (8.0-11.0); Monocytes % 6.2; Neutrophils % 67.7; Platelet Count 223 10^3/uL (130-400); RBC 4.63 10^6/uL (4.36-5.78); RDW 12.9 % (11.8-14.1); RDW-SD 41.9 fL; WBC 7.61 10^3/uL (4.4-10.8)
[2023-04-27 16:06] LABS: ESR 4 mm/hr (0-20)
[2023-04-27 16:08] LABS: ALT 32 U/L (16-63); AST 15 U/L (15-37); Albumin 3.6 g/dL (3.4-5.0); Alkaline Phosphatase 128 U/L (46-116); Anion Gap 5.2 mmol/L (3-11); BUN 19 mg/dL (7-18); Bilirubin, Total 0.4 mg/dL (0.2-1.0); C-Reactive Protein 0.11 mg/dL (0.0-0.3); CO2 30.8 mmol/L (21.0-32.0); CREATININE 1.1 mg/dL (0.70-1.30); Calcium 8.9 mg/dL (8.5-10.1); Chloride 106 mmol/L (98-107); Estimated GFR 76.37 (mL/min/1.73m2); Glucose 167 mg/dL (74-106); Sodium 142 mmol/L (136-145); Total Protein 6.6 g/dL (6.4-8.2)
[2023-04-27 16:38] LABS: Creatine Kinase 110 U/L (39-308)
== END 2023-04-27 11:19 | disposition home or self-care (01) ==
LOC: NCHCN 11:18
PROVIDERS: PCP Family Medicine; Visit Provider Family Medicine
DX: E11.9 Type 2 diabetes mellitus without complications (principal); M06.9 Rheumatoid arthritis, unspecified
CPT/HCPCS: 80053; 82550; 85652; 83036; 85025; 86140

== ENCOUNTER 2023-12-04 09:32 | Emergency (ER) | payer OTHER, SELFPAY ==
[2023-12-04 09:40] VITALS: BP 107/69; PULSE 80; TEMP 36.8; O2SAT 95
[2023-12-04 09:45] LABS: Bilirubin Small (Negative); Blood Negative (Negative); Clarity Sl Cloudy (Clear); Glucose Negative (Negative); Ketones Trace mg/dL (Negative); Leukocyte Esterase Negative (Negative); Nitrite Negative (Negative); Specific Gravity 1.025 (1.005-1.025)
--- NOTE | 2023-12-04 09:45 | DI.CT_ITS ---
Exam(s) CT ABDOMEN PELVIS W EXAM: CT ABDOMEN PELVIS W CLINICAL HISTORY: L flank pain radiating to LLQ, TTP LLQ TECHNIQUE: Imaging Protocol: Axial computed tomography images with coronal and sagittal reformatted images were created and reviewed. CONTRAST MATERIAL: Intravenous: Omnipaque 350 Contrast volume:100 mL Oral: No COMPARISON: CT ABD PELVIS WITH CONTRAST from 05/17/[address] RENAL ARTERY from 06/08/[address] ABDOMEN PELVIS W from 05/08/2022 FINDINGS: There is limited visualization of the pelvis secondary to artifact from the patient's bilateral total hip replacements. ABDOMEN: Lung Bases: Coronary artery calcifications are present. Liver: Normal density. No measurable mass. Portal, Superior Mesenteric, and Splenic Veins: Unremarkable. Gallbladder and Biliary Tract: No radiodense calculus or dilation. Pancreas: Normal density, no abnormal calcifications or inflammatory process. Spleen: Normal. Adrenals: No masses seen. Kidneys: Normal size, contour and axis. No radiodense stones or obstructive uropathy. No masses seen. The distal ureters cannot be visualized due to artifact from the patient's bilateral total hip repla cements. Abdominal Aorta: Abdominal portion non-dilated. Atherosclerotic calcification is present. Bowel: No obstruction or bowel wall thickening. No evidence of appendicitis. There is a question of a new soft tissue mass within the distal stomach (series 4, image 261). It measures approximately 2 cm. Peritoneal Cavity: No ascites, collection or mesenteric inflammatory response. No free air. Lymph Nodes: Within normal limits. Bones: Within normal limits for the patient's age. Bilateral total hip replacements. Soft Tissues: Stable postsurgical changes at the umbilicus. PELVIS: Bladder: The urinary bladder is incompletely visualized due to artifact from the bilateral total hip replacements. Reproductive Organs: The visualized portions of the prostate gland are grossly unremarkable. It is l argely obscured by artifact. Lymph Nodes: Within normal limits. Bones: Within normal limits for the patient's age. IMPRESSION: 1. No acute abdominal or pelvic process. 2. There is a question of this intraluminal soft tissue mass in the distal stomach. Follow-up with u pper endoscopy is recommended. 3. Pelvic evaluation is limited secondary to artifact from the patient's bilateral total hip replacem ents. 4. No evidence of obstructive uropathy. 5. Findings were discussed with Dr. Ashwin Hector at 11:50 a.m. on 12/04/2023. RADIATION DOSE DELIVERED: 578.17mGy.cm Total DLP DATA REPOSITORY: All CT scans at this facility are submitted to the National Radiology Data Registry (NRDR) Dose Index Registry (DIR) with the [employer] (ACR). RADIATION OPTIMIZATION: All CT scans at this facility use at least one of these dose optimization te chniques: automated exposure control; mA and/or kV adjustment per patient size (includes targeted exa ms where dose is matched to clinical indication); or iterative reconstruction.
--- NOTE | 2023-12-04 09:54 | ED.GENADUL_ITS ---
Discharge Plan Disposition Patient Disposition: Home Discharge Details Clinical Impression: Left flank pain, Nausea Primary Care Provider: Neena Montiel V ED Provider: Betzy Brooks Home Meds and New Rx's Prescriptions: Continued fluticasone propion-salmeterol [Advair HFA] 115-21 mcg/actuation HFA aerosol inhaler 2 puff inhalation BID Qty: 12 11RF Rx Instructions: administer with spacer tramadol 50 MG tablet 50 mg PO BID methotrexate sodium 2.5 MG tablet 2.5 mg PO 6 TABS A WEEK Patient Comments: 08/14/14 takes q weekly on Sat night Rx Instructions: RECORDS STATE, 2.5MG, 6 TAB Q WEEK.HE losartan 100 MG tablet 100 mg PO DAILY Patient Comments: FROM RECORD.HE terazosin 10 mg capsule 10 mg PO DAILY ezetimibe 10 mg tablet 10 mg PO DAILY solifenacin 10 mg tablet 10 mg PO DAILY pantoprazole 40 mg tablet,delayed release (DR/EC) 40 mg PO DAILY aspirin [Adult Low Dose Aspirin] 81 mg tablet,delayed release (DR/EC) 81 mg PO DAILY atorvastatin 80 mg tablet 80 mg PO DAILY nitroglycerin 0.4 mg tablet, sublingual 0.4 mg sublingual Q5M PRN Rx Instructions: do not exceed 3 doses per episode gabapentin 600 mg tablet 600 mg PO QHS Rx Instructions: take 1 tablet by mouth at dinner and 2 tablets by mouth at bedtime. folic acid 1 mg tablet 1 mg PO DAILY amlodipine 10 mg tablet 10 mg PO DAILY gabapentin 100 mg capsule 100 mg PO BID PRN Rx Instructions: can take 1-2 tabs metoprolol succinate 100 mg tablet extended release 24 hr 150 mg PO DAILY Qty: 180 3RF cyclobenzaprine 10 mg Tablet 10 mg PO BID metformin 500 mg tablet extended release 24 hr 500 mg PO DAILY Ozempic 0.25 mg or 0.5 mg (2 mg/3 mL) pen injector 0.5 mg SUBCUT .weekly Discharge Instructions Instructions: Dealing With Nausea and Vomiting From the Drugs You Take Additional Instructions: Please call your primary care provider's office first thing in the morning to schedule a follow-up appointment within the next week or so for reassessment. There was concern for abnormal finding on your CT scan in your stomach. I strongly encourage you to call [facility] general surgery to schedule an endoscopy to further evaluate this. Your workup today was reassuring. I recommend that you use a lidocaine patch, gentle stretching, and rest as needed for your back pain. Muscle rubs such as icy hot may also be helpful. Return to emergency care if you develop new abdominal pain, uncontrollable vomiting, burning/bleeding/foul odor with urination, or if you are very worried and need to be rechecked again immediately. Referrals: [facility] [Provider Group] Neena Montiel MD [Primary Care Provider] - [facility] General Date/Time Provider Initiated Documentation: 12/04/23 09:43 . [facility] Narrative: Lisandro is a 62-year-old male with history of [place] with stent placement, pancreatitis, and recent Ozempic dose increase (4 days ago) who presents to the emergency department for evaluation of aching left flank pain that radiates around to the left lower quadrant/left groin. He reports pain started 2 days ago, initially in the left flank but migrated down to the left lower quadrant/groin area. Today he developed nausea. He usually urinates 3-5 times a night, did not get up at all to urinate last night and had decreased urine output this morning with discomfort while urinating. Denies fever/chills, new dizziness, chest pain, shortness of breath, vomiting, black/tarry stools, hematuria, change in appearance/swelling of testicles/penis. He does have a history of constipation since starting Ozempic 1 month ago. He did have abdominal surgery in the past (hernia repair). No history of colonoscopy. Physical exam reassuring. Patient alert and oriented, no acute distress. Abdomen is softly distended, mild tenderness palpation to left lower quadrant, normal bowel sounds. Large ventral hernia noted. No flank or abdominal ecchymosis, rashes, rigidity or guarding. No CVA tenderness. Easy work of breathing, sounds clear bilaterally. Normal heart sounds. Some tenderness to palpation of left flank DDx includes but is not limited to: pancreatitis, diverticulitis, bowel obstruction, gastritis, nephrolithiasis, muscle spasm I independently interpreted the following tests: CBC reassuring. Creatitinie 1.5, elevated from previous (1.1 on 04/27/23), alk phosp slightly elevated with otherwise unremarkable LFTs. Lipase unremarkable. UA significant for 100 protein and small bili/2.0 urobili. PVR was performed, 100 cc; no concern for urinary retention at this time. While in the emergency department Lisandro was given 1 L of normal saline and CT abdomen/pelvis performed. No acute abnormalities noted on CT abdomen/pelvis, however there is question of soft tissue mass in the distal stomach. Discussed findings with patient, recommend endoscopy. Referral provided by critical care unit manager. Lisandro did have increased nausea while in the emergency department, famotidine and Zofran given. He is able to tolerate p.o. without difficulty. Workup today reassuring, no acute cause of flank pain identified, as CT was largely unremarkable aside from ?stomach mass. Unclear etiology of left flank pain, possible muscle spasm. Nausea is most consistent with recent Ozempic dose increase. Recommend follow-up with PCP for further evaluation/management. Reviewed symptomatic mgmt and red flags indicating need for return to emergency care. He voices agreement and understanding with plan of care. Related Data Home Medications ?Medication ?Instructions ?Recorded ?Confirmed tramadol 50 mg tablet 50 mg PO BID 07/10/12 12/04/23 losartan 100 mg tablet 100 mg PO DAILY 02/01/14 12/04/23 methotrexate sodium 2.5 mg tablet 2.5 mg PO 6 TABS A WEEK 02/01/14 12/04/23 cyclobenzaprine 10 mg tablet 10 mg PO BID 03/12/20 12/04/23 amlodipine 10 mg tablet 10 mg PO DAILY 02/08/22 12/04/23 aspirin 81 mg tablet,delayed 81 mg PO DAILY 02/08/22 12/04/23 release (Adult Low Dose Aspirin) atorvastatin 80 mg tablet 80 mg PO DAILY 02/08/22 12/04/23 ezetimibe 10 mg tablet 10 mg PO DAILY 02/08/22 12/04/23 folic acid 1 mg tablet 1 mg PO DAILY 02/08/22 12/04/23 gabapentin 600 mg tablet 600 mg PO QHS 02/08/22 12/04/23 nitroglycerin 0.4 mg sublingual 0.4 mg sublingual Q5M PRN 02/08/22 12/04/23 tablet pantoprazole 40 mg tablet,delayed 40 mg PO DAILY 02/08/22 12/04/23 release solifenacin 10 mg tablet 10 mg PO DAILY 02/08/22 12/04/23 terazosin 10 mg capsule 10 mg PO DAILY 02/08/22 12/04/23 gabapentin 100 mg capsule 100 mg PO BID PRN 10/11/22 12/04/23 fluticasone propionate 115 2 puff inhalation BID #12 grams 02/13/23 12/04/23 mcg-salmeterol 21 mcg/actuation HFA inhaler (Advair HFA) metoprolol succinate 100 mg 150 mg (1.5 x 100 mg) PO DAILY 02/26/23 12/04/23 tablet,extended release 24 hr #180 tabs metformin 500 mg tablet,extended 500 mg PO DAILY 12/04/23 12/04/23 release 24 hr semaglutide 0.25 mg or 0.5 mg (2 0.5 mg subcut .weekly 12/04/23 12/04/23 mg/3 mL) subcutaneous pen injector (Ozempic) Previous Rx's ?Medication ?Instructions ?Recorded fluticasone propionate 115 2 puff inhalation BID #12 grams 02/13/23 mcg-salmeterol 21 mcg/actuation HFA inhaler (Advair HFA) metoprolol succinate 100 mg 150 mg (1.5 x 100 mg) PO DAILY 02/26/23 tablet,extended release 24 hr #180 tabs Allergies Allergy/AdvReac Type Severity Reaction Status Date / Time indomethacin (From Indocin) AdvReac Nausea/VOMI Verified 12/04/23 09:45 TTIING indomethacin sodium (From AdvReac Nausea/VOMI Verified 12/04/23 09:45 Indocin) TTIING metoprolol AdvReac FATIGUE/DIZ Verified 12/04/23 09:45 ZINESS General Stated Complaint: FlankPain MOUSTAPHA: 3 Review of Systems Narrative: see HPI Exam Const General: cooperative, healthy appearing, comfortable, no acute distress and well developed Nutritional Appearance: average body habitus Resp Effort & Inspection: normal respiratory effort and able to speak in complete sentences Auscultation: clear to auscultation bilaterally Cardio Rate: regular rate Rhythm: regular rhythm GI Inspection: normal to inspection, no abdominal wall ecchymosis and non-distended Palpation: soft, not firm, no guarding, hernia ventral, no pulsatile masses, not rigid and tender in the LLQ Auscultation: normal bowel sounds Back/Spine/Pelvis Back: no CVA tenderness Cervical Spine: normal cervical lordosis and cervical ROM normal Thoracic/Lumbar Spine: thoracic and lumbar spine normal to inspection and paraspinal tenderness (L flank) Skin General skin exam: no rashes or lesions noted Course Vital Signs Vital signs: Vital Signs Temperature 36.8 C 12/04/23 09:40 Pulse 80 12/04/23 09:40 Blood Pressure 107/69 12/04/23 09:40 Pulse Oximetry 95 12/04/23 09:40 Temperature 36.8 C 12/04/23 09:40 Pulse 80 12/04/23 09:40 Respiratory Effort Normal, Non-Labored 12/04/23 09:43 Blood Pressure 107/69 12/04/23 09:40 Blood Pressure Position Sitting 12/04/23 09:40 Pulse Oximetry 95 12/04/23 09:40 Oxygen Delivery Method Room Air 12/04/23 09:40 Oxygen Flow Rate 0 12/04/23 09:40 Pain Level 5 12/04/23 09:48 Medical Decision Making Imaging Data Radiologic Study: Radiologist's impression: Exam(s) CT ABDOMEN PELVIS W EXAM: CT ABDOMEN PELVIS W CLINICAL HISTORY: L flank pain radiating to LLQ, TTP LLQ TECHNIQUE: Imaging Protocol: Axial computed tomography images with coronal and sagittal reformatted images were created and reviewed. CONTRAST MATERIAL: Intravenous: Omnipaque 350 Contrast volume:100 mL Oral: No COMPARISON: CT ABD PELVIS WITH CONTRAST from 05/17/[address] RENAL ARTERY from 06/08/[address] ABDOMEN PELVIS W from 05/08/2022 FINDINGS: There is limited visualization of the pelvis secondary to artifact from the patient's bilateral total hip replacements. ABDOMEN: Lung Bases: Coronary artery calcifications are present. Liver: Normal density. No measurable mass. Portal, Superior Mesenteric, and Splenic Veins: Unremarkable. Gallbladder and Biliary Tract: No radiodense calculus or dilation. Pancreas: Normal density, no abnormal calcifications or inflammatory process. Spleen: Normal. Adrenals: No masses seen. Kidneys: Normal size, contour and axis. No radiodense stones or obstructive uropathy. No masses seen. The distal ureters cannot be visualized due to artifact from the patient's bilateral total hip replacements. Abdominal Aorta: Abdominal portion non-dilated. Atherosclerotic calcification is present. Bowel: No obstruction or bowel wall thickening. No evidence of appendicitis. There is a question of a new soft tissue mass within the distal stomach (series 4, image 261). It measures approximately 2 cm. Peritoneal Cavity: No ascites, collection or mesenteric inflammatory response. No free air. Lymph Nodes: Within normal limits. Bones: Within normal limits for the patient's age. Bilateral total hip replacements. Soft Tissues: Stable postsurgical changes at the umbilicus. PELVIS: Bladder: The urinary bladder is incompletely visualized due to artifact from the bilateral total hip replacements. Reproductive Organs: The visualized portions of the prostate gland are grossly unremarkable. It is largely obscured by artifact. Lymph Nodes: Within normal limits. Bones: Within normal limits for the patient's age. IMPRESSION: 1. No acute abdominal or pelvic process. 2. There is a question of this intraluminal soft tissue mass in the distal stomach. Follow-up with upper endoscopy is recommended. 3. Pelvic evaluation is limited secondary to artifact from the patient's bilateral total hip replacements. 4. No evidence of obstructive uropathy. 5. Findings were discussed with Dr. Ashwin Hector at 11:50 a.m. on 12/04/2023. Quality:SDOH Health Related Social Needs: No Data to Display PFSH All Active Problems (Updated 12/04/23 @ 12:54 by Betzy Hector) Nausea (Acute) Left flank pain (Acute) Dyspnea (Acute) Pulmonary edema (Acute) MICHAEL (obstructive sleep apnea) (Chronic) Does not tolerate CPAP, wears nocturnal O2 Dilated cardiomyopathy (Acute) History of bilateral total hip arthroplasty (Acute) Shortness of breath (Acute) Pancreas divisum (Acute) Cough (Acute) Asbestos exposure (Acute) Bradycardia (Acute) Rectal bleed (Acute) Angina concurrent with and due to arteriosclerosis of coronary artery (Acute) Encounter for preprocedural laboratory examination (Acute) Medical History Abnormal lung field Angina pectoris, unspecified Benign hypertension Biceps tendinitis on left BPH (benign prostatic hyperplasia) CAD (coronary artery disease) Cervicalgia Chest pain Chronic obstructive lung disease Concussion without loss of consciousness Constipation COVID Diabetes MADDEN (dyspnea on exertion) History of CAD (coronary artery disease) HLD (hyperlipidemia) HTN (hypertension) Vbll-Dilsw-Njmydmm disease s/p bilateral [facility]EL[facility] Loose stools Low back pain Myalgia Overweight Pancreatitis Peripheral neuropathy Raynauds phenomenon Recurrent pneumonia Rheumatoid arthritis Skin lesion of face STEMI (ST elevation myocardial infarction) Torticollis Umbilical hernia Weakness of both arms Surgical History Amputation left ring Hernia Repair, Incisional x 4 History of bilateral hip replacements Total replacement of hip bilateral done at same setting. Social History (Updated 04/26/23 @ 11:08 by Bessy Vital RN, RN) Smoking/Tobacco Use Status: Never Smoking risk assessment performed?: Yes Alcohol Intake: never Drug use: Never Substance use type: does not use Household members: spouse Housing: house What is your relationship status?: Panel score (0-1 are the most socially isolated patients): 1 Do you feel safe at home: Yes Do you feel safe in your relationship?: Yes
[2023-12-04 10:20] LABS: Abs Immature Grans 0.03 10^3/uL (0.0-0.06); Absolute Basophil Count 0.04 10^3/uL (0.0-0.2); Absolute Eosinophil Count 0.15 10^3/uL (0.0-0.7); Absolute Lymphocyte Count 1.24 10^3/uL (1.2-3.4); Absolute Monocyte Count 0.25 10^3/uL (0.1-0.8); Absolute Neutrophil Count 5.53 10^3/uL (1.2-6.7); Basophils % 0.6 %; Eosinophils % 2.1 %; HCT 41.2 % (40.0-50.0); HGB 13.3 g/dL (13.5-17.5); Immature Grans % 0.4 %; Lymphocytes % 17.1 %; MCH 29.4 pg (27.0-33.0); MCHC 32.3 % (32.0-36.0); MCV 91 fL (80-95); MPV 9.9 fL (8.0-11.0); Monocytes % 3.5 %; Neutrophils % 76.3 %; Platelet Count 206 10^3/uL (130-400); RBC 4.53 10^6/uL (4.36-5.78); RDW-SD 46.5 fL; WBC 7.24 10^3/uL (4.4-10.8)
[2023-12-04 10:37] LABS: ALT 24 U/L (16-63); AST 20 U/L (15-37); Albumin 3.7 g/dL (3.4-5.0); Alkaline Phosphatase 145 U/L (46-116); Anion Gap 6.3 mmol/L (3-11); BUN 14 mg/dL (7-18); Bilirubin, Total 0.49 mg/dL (0.2-1.0); CO2 28.7 mmol/L (21.0-32.0); CREATININE 1.5 mg/dL (0.70-1.30); Chloride 107 mmol/L (98-107); Estimated GFR 52.64 (mL/min/1.73m2); Glucose 156 mg/dL (74-106); Lipase 72 U/L (16-77); Potassium 4.5 mmol/L (3.5-5.1); Sodium 142 mmol/L (136-145); Total Protein 7.2 g/dL (6.4-8.2)
[2023-12-04 10:39] LABS: Bacteria Few HPF (Negative); C & S Indicated? No; Casts 0-2 Hyaline LPF (Negative); Crystals Negative HPF (Negative); Epithelial Cells Few HPF (Negative); Mucus Negative (Negative); RBC 0-2 HPF (0-2)
[2023-12-04 10:41] LABS: Calcium 9.4 mg/dL (8.5-10.1)
[2023-12-04] MEDS: Omnipaque 350 MG/ML 100 ML BTL IJ (11:04)
[2023-12-04] MEDS: Normal Saline - Diluent 50 ML VIAL IJ (11:06)
[2023-12-04] MEDS: Normal Saline 1,000 ML 1000 ML IV (11:15)
[2023-12-04] MEDS: Normal Saline 10 ML VIAL IJ (11:17)
[2023-12-04] MEDS: Ondansetron 4 MG/2 ML VIAL IVP (12:14)
[2023-12-04] MEDS: Famotidine 20 MG/2 ML VIAL IVP (12:14)
[2023-12-04] MEDS: Lidocaine 5% Patch 1 PATCH TP (12:48)
== END 2023-12-04 13:12 | disposition home or self-care (01) ==
PROVIDERS: Emergency Provider Nurse Practitioner Family; PCP Family Medicine
DX: R10.32 Left lower quadrant pain (principal); R11.0 Nausea
CPT/HCPCS: 36415; 80053; 83690; 96361; 96374; 96375; 99285; 74177; 81003; 81015; 85025; 99283; J2405; J3490

== ENCOUNTER 2023-12-06 08:40 | Emergency (ER) | payer OTHER, SELFPAY ==
[2023-12-06 08:45] VITALS: BP 127/71; PULSE 77; TEMP 36.9; O2SAT 92
[2023-12-06 09:38] VITALS: BP 136/97; PULSE 84; O2SAT 94
--- NOTE | 2023-12-06 11:13 | DI.RAD_ITS ---
Exam(s) XR ABD FLAT UPRIGHT PA CHEST EXAM: 2D digital imaging was performed. CLINICAL HISTORY: abd pain, no bm 5 days. COMPARISON: CR XR PORTABLE CHEST AP from 06/27/[address] ABDOMEN PELVIS W from 12/04/2023 TECHNIQUE: Supine and upright abdomen and PA chest views were performed. Five images were obtained. FINDINGS: MEDIASTINUM: Normal. HEART: Normal. PULMONARY VASCULATURE: Normal. LUNGS: Clear. PLEURAL SPACE: No pleural effusion or pneumothorax. BONE:Within normal limits for the patient's age. OTHER FINDINGS:Normal. BOWEL GAS PATTERN: Nondistended. There is a moderate amount of stool throughout the colon. No eviden ce of obstruction. FREE AIR: None. CALCIFICATIONS: No radiopaque calcifications. OSSEOUS STRUCTURES: Patient has bilateral total hip replacements. Age-appropriate degenerative larose es are seen in the spine. OTHER FINDINGS: None. IMPRESSION: 1. Nonobstructive bowel gas pattern. 2. No acute pulmonary process. 3. There is a moderate amount of stool in the colon. No evidence of bowel obstruction. DATA REPOSITORY: RADIATION DOSE DELIVERED:
[2023-12-06] MEDS: Mineral Oil-Enema 133 ML BTL PR (11:18)
--- NOTE | 2023-12-06 11:28 | ED.GENADUL_ITS ---
Discharge Plan Disposition Patient Disposition: Home Condition: Stable Discharge Details Clinical Impression: Acute pain associated with herpes zoster, Acute constipation Primary Care Provider: Neena Montiel V ED Provider: Raul Hope Home Meds and New Rx's Prescriptions: New valacyclovir [Valtrex] 1 gram tablet 1,000 mg PO TID Qty: 30 0RF peg 3350-electrolytes [Golytely] 236-22.74-6.74 -5.86 gram recon soln 240 ml PO Q10M Qty: 4000 0RF Rx Instructions: until fecal effluent is clear Continued fluticasone propion-salmeterol [Advair HFA] 115-21 mcg/actuation HFA aerosol inhaler 2 puff inhalation BID Qty: 12 11RF Rx Instructions: administer with spacer tramadol 50 MG tablet 50 mg PO BID methotrexate sodium 2.5 MG tablet 2.5 mg PO 6 TABS A WEEK Patient Comments: 08/14/14 takes q weekly on Sat night Rx Instructions: RECORDS STATE, 2.5MG, 6 TAB Q WEEK.HE losartan 100 MG tablet 100 mg PO DAILY Patient Comments: FROM RECORD.HE terazosin 10 mg capsule 10 mg PO DAILY ezetimibe 10 mg tablet 10 mg PO DAILY solifenacin 10 mg tablet 10 mg PO DAILY pantoprazole 40 mg tablet,delayed release (DR/EC) 40 mg PO DAILY aspirin [Adult Low Dose Aspirin] 81 mg tablet,delayed release (DR/EC) 81 mg PO DAILY atorvastatin 80 mg tablet 80 mg PO DAILY nitroglycerin 0.4 mg tablet, sublingual 0.4 mg sublingual Q5M PRN Rx Instructions: do not exceed 3 doses per episode gabapentin 600 mg tablet 600 mg PO QHS Rx Instructions: take 1 tablet by mouth at dinner and 2 tablets by mouth at bedtime. folic acid 1 mg tablet 1 mg PO DAILY amlodipine 10 mg tablet 10 mg PO DAILY gabapentin 100 mg capsule 100 mg PO BID PRN Rx Instructions: can take 1-2 tabs metoprolol succinate 100 mg tablet extended release 24 hr 150 mg PO DAILY Qty: 180 3RF cyclobenzaprine 10 mg Tablet 10 mg PO BID metformin 500 mg tablet extended release 24 hr 500 mg PO DAILY Held Ozempic 0.25 mg or 0.5 mg (2 mg/3 mL) pen injector 0.5 mg SUBCUT .weekly Hold Instructions: Resume on 12/13/23. discuss with your doctor before resuming Discharge Instructions Instructions: Constipation, Adult ED, Shingles Additional Instructions: Take antiviral medication for shingles as prescribed. Please use enema for constipation. We discussed trying enema solution of one half black strep molasses mixed with one half of warm whole milk. Please use GoLytely as a laxative. Your lipase level was slightly elevated today. Given your prior history of pancreatitis, I would recommend maintaining a clear liquid diet today and t omorrow. You may advance your diet to bland soft foods like rice the following day and then further as tolerated. Please discuss this elevated blood level with your doctor. Ozempic has rare side effect of pancreatitis. I recommend holding Ozempic dosing until you are able to follow-up with your doctor and discuss further. Please follow-up with your primary care physician next week as scheduled. Return to the ER immediately for any worsening or new concerning symptoms. HPI General Mode of arrival: ambulatory . Date/Time Provider Initiated Documentation: 12/06/23 09:11 . Limitations to Documentation: no limitations . Information obtained by: patient . HPI Narrative: 62yo male with history of abdominal pain and back pain over the past 2 days. Patient was seen here in the emerged part of 2 days ago and had a complete diagnostic workup including CT of the abdomen pelvis. He went home but continues to have symptoms. His primary concern at this point is low back pain which feels like a burning sensation in his mid low back. No associated fever. Patient notes is a abdominal pain feels like a fullness. He has not had a bowel movement in 5 to 6 days. He notes he normally has bowel movements every other day. He did try milk of magnesium last night which did not help. No urinary symptoms. Related Data Home Medications ?Medication ?Instructions ?Recorded ?Confirmed tramadol 50 mg tablet 50 mg PO BID 07/10/12 12/06/23 losartan 100 mg tablet 100 mg PO DAILY 02/01/14 12/06/23 methotrexate sodium 2.5 mg tablet 2.5 mg PO 6 TABS A WEEK 02/01/14 12/06/23 cyclobenzaprine 10 mg tablet 10 mg PO BID 03/12/20 12/06/23 amlodipine 10 mg tablet 10 mg PO DAILY 02/08/22 12/06/23 aspirin 81 mg tablet,delayed 81 mg PO DAILY 02/08/22 12/06/23 release (Adult Low Dose Aspirin) atorvastatin 80 mg tablet 80 mg PO DAILY 02/08/22 12/06/23 ezetimibe 10 mg tablet 10 mg PO DAILY 02/08/22 12/06/23 folic acid 1 mg tablet 1 mg PO DAILY 02/08/22 12/06/23 gabapentin 600 mg tablet 600 mg PO QHS 02/08/22 12/06/23 nitroglycerin 0.4 mg sublingual 0.4 mg sublingual Q5M PRN 02/08/22 12/06/23 tablet pantoprazole 40 mg tablet,delayed 40 mg PO DAILY 02/08/22 12/06/23 release solifenacin 10 mg tablet 10 mg PO DAILY 02/08/22 12/06/23 terazosin 10 mg capsule 10 mg PO DAILY 02/08/22 12/06/23 gabapentin 100 mg capsule 100 mg PO BID PRN 10/11/22 12/06/23 fluticasone propionate 115 2 puff inhalation BID #12 grams 02/13/23 12/06/23 mcg-salmeterol 21 mcg/actuation HFA inhaler (Advair HFA) metoprolol succinate 100 mg 150 mg (1.5 x 100 mg) PO DAILY 02/26/23 12/06/23 tablet,extended release 24 hr #180 tabs metformin 500 mg tablet,extended 500 mg PO DAILY 12/04/23 12/06/23 release 24 hr semaglutide 0.25 mg or 0.5 mg (2 0.5 mg subcut .weekly 12/04/23 12/06/23 mg/3 mL) subcutaneous pen injector (Ozempic) peg 3350-electrolytes 236 240 ml PO Q10M #4,000 mL 12/06/23 gram-22.74 gram-6.74 gram-5.86 gram solution (Golytely) valacyclovir 1 gram tablet 1,000 mg PO TID #30 tabs 12/06/23 (Valtrex) Previous Rx's ?Medication ?Instructions ?Recorded fluticasone propionate 115 2 puff inhalation BID #12 grams 02/13/23 mcg-salmeterol 21 mcg/actuation HFA inhaler (Advair HFA) metoprolol succinate 100 mg 150 mg (1.5 x 100 mg) PO DAILY 02/26/23 tablet,extended release 24 hr #180 tabs peg 3350-electrolytes 236 240 ml PO Q10M #4,000 mL 12/06/23 gram-22.74 gram-6.74 gram-5.86 gram solution (Golytely) valacyclovir 1 gram tablet 1,000 mg PO TID #30 tabs 12/06/23 (Valtrex) Allergies Allergy/AdvReac Type Severity Reaction Status Date / Time indomethacin (From Indocin) AdvReac Nausea/VOMI Verified 12/06/23 08:48 TTIING indomethacin sodium (From AdvReac Nausea/VOMI Verified 12/06/23 08:48 Indocin) TTIING metoprolol AdvReac FATIGUE/DIZ Verified 12/06/23 08:48 ZINESS General Stated Complaint: Nk/Back Pain MOUSTAPHA: 3 Review of Systems All systems reviewed & are unremarkable except as noted in HPI and below Constitutional Constitutional: Denies fever(s) Gastrointestinal Gastrointestinal: Reports as per HPI and Reports abdominal pain Exam Const General: cooperative and no acute distress HENMT Mouth: moist mucous membranes Eyes Conjunctivae: normal conjunctivae Sclera: normal sclerae Resp Auscultation: clear to auscultation bilaterally, no rales, no rhonchi and no wheezes Cardio Jugular venous pressure: no JVD Rate: regular rate and not tachycardic Rhythm: regular rhythm GI Inspection: other (fullness) Palpation: soft, not firm, no guarding, no masses, not rigid and tender (diffuse) Auscultation: hypoactive bowel sounds Skin Rashes: rashes noted (3x3 cm area of macular erythema midline upper lumbar area ) Neuro General: patient alert, patient awake and tone normal Extrem General: no edema Psych Appearance: grossly normal Mental Status: mental status grossly normal Course Vital Signs Vital signs: Vital Signs Temperature 36.9 C 12/06/23 08:45 Pulse 77 12/06/23 08:45 Blood Pressure 127/71 12/06/23 08:45 Pulse Oximetry 92 12/06/23 08:45 Temperature 36.9 C 12/06/23 08:45 Temperature Source Oral 12/06/23 08:45 Pulse 84 12/06/23 09:38 Respiratory Effort Normal, Non-Labored 12/06/23 08:49 Blood Pressure 136/97 H 12/06/23 09:38 Blood Pressure Position Sitting 12/06/23 08:45 Pulse Oximetry 94 12/06/23 09:38 Oxygen Delivery Method Room Air 12/06/23 09:38 Oxygen Flow Rate 0 12/06/23 09:38 Medical Decision Making 1114 --62-year-old male with multiple medical problems including prior history of pancreatitis, seen here yesterday for back pain and abdominal discomfort returns with continued low back pain and diffuse abdominal pain and fullness with no bowel movement in the past 5 days. Suspect constipation is contributing to presentation. Patient did try milk of magnesia last night which did not improve symptoms. I will treat with fleets enema. Patient had CT of the abdomen pelvis 2 days ago that was interpreted by radiology:1. No acute abdominal or pelvic process. 2. There is a question of this intraluminal soft tissue mass in the distal stomach. Follow-up with upper endoscopy is recommended. 3. Pelvic evaluation is limited secondary to artifact from the patient's bilateral total hip replacements. 4. No evidence of obstructive uropathy. 5. Findings were discussed with Dr. Ashwin Hector at 11:50 a.m. on 12/04/2023. Consider bowel obstruction will obtain abdominal x-rays. Back pain is described as a burning sensation and fairly focal. Patient does localize pain to area of macular erythema lower back midline that is tender to palpation. I am concerned that this rash may be herpes zoster. It is difficult to tell as the rash does not spread laterally along the specific dermatome. Rash is not consistent with cellulitis. It may also be that he has been rubbing the area and that this has created skin irritation. 1430 --x-ray of the abdomen interpreted by radiology: Labs reviewed and no leukocytosis. Lipase is mildly elevated above normal at 83. Patient reassessed and continues to note back discomfort. On reexamination of the rash there appears to be more of a dermatomal pattern. I suspect shingles. Plan to initiate treatment with Valtrex as symptoms started less than 72 hours ago. Regarding constipation, we discussed enema as well as will prescribe GoLytely. Plan for discharge with outpatient follow-up with PCP. He has follow-up scheduled for early next week. Disposition decision was made weighing the risks and benefits of hospitalization versus outpatient treatment, the risk for further decompensation, and the patient's wishes. The patient was stable and requested discharge. Prior to discharge, my usual and customary return precautions were reviewed with the patient - this included follow-up instructions and reason to return to the emergency department if condition worsens, does not improve as expected, or other new concerns arise. Lab Data Lab results reviewed: Yes I reviewed the patient's lab results. Labs: Laboratory Tests Range/Units 12/06/23 12:55 WBC (4.4-10.8) 10^3/uL 4.49 RBC (4.36-5.78) 10^6/uL 4.55 Hgb (13.5-17.5) g/dL 13.3 L Hct (40.0-50.0) % 40.4 MCV (80-95) fL 89 MCH (27.0-33.0) pg 29.2 MCHC (32.0-36.0) % 32.9 RDW (11.8-14.1) % 13.8 Plt Count (130-400) 10^3/uL 172 MPV (8.0-11.0) fL 9.8 Immature Gran % % 0.4 Neutrophils % % 74.2 Lymphocytes % % 14.7 Monocytes % % 8.9 Eosinophils % % 1.1 Basophils % % 0.7 Nucleated RBC % (0.0-0.3) % 0.0 Absolute Neutrophils (1.2-6.7) 10^3/uL 3.33 Absolute Lymphocytes (1.2-3.4) 10^3/uL 0.66 L Absolute Monocytes (0.1-0.8) 10^3/uL 0.40 Absolute Eosinophils (0.0-0.7) 10^3/uL 0.05 Absolute Basophils (0.0-0.2) 10^3/uL 0.03 Sodium (136-145) mmol/L 139 Potassium (3.5-5.1) mmol/L 4.6 Chloride (98-107) mmol/L 102 Carbon Dioxide (21.0-32.0) mmol/L 31.8 Anion Gap (3-11) mmol/L 5.2 BUN (7-18) mg/dL 14 Creatinine (0.70-1.30) mg/dL 1.3 Est GFR (CKD-EPI 2020) (mL/min/1.73m2) 62.50 Glucose (74-106) mg/dL 108 H Calcium (8.5-10.1) mg/dL 9.5 Total Bilirubin (0.2-1.0) mg/dL 0.44 AST (15-37) U/L 21 ALT (16-63) U/L 20 Alkaline Phosphatase (46-116) U/L 147 H Total Protein (6.4-8.2) g/dL 7.0 Albumin (3.4-5.0) g/dL 3.6 Lipase (16-77) U/L 83 H Quality:SDOH Health Related Social Needs: No Data to Display PFSH All Active Problems (Updated 12/06/23 @ 14:33 by Raul Hope MD) Acute constipation (Acute) Acute pain associated with herpes zoster (Acute) Nausea (Acute) Left flank pain (Acute) Dyspnea (Acute) Pulmonary edema (Acute) MICHAEL (obstructive sleep apnea) (Chronic) Does not tolerate CPAP, wears nocturnal O2 Dilated cardiomyopathy (Acute) History of bilateral total hip arthroplasty (Acute) Shortness of breath (Acute) Pancreas divisum (Acute) Cough (Acute) Asbestos exposure (Acute) Bradycardia (Acute) Rectal bleed (Acute) Angina concurrent with and due to arteriosclerosis of coronary artery (Acute) Encounter for preprocedural laboratory examination (Acute) Medical History Abnormal lung field Angina pectoris, unspecified Benign hypertension Biceps tendinitis on left BPH (benign prostatic hyperplasia) CAD (coronary artery disease) Cervicalgia Chest pain Chronic obstructive lung disease Concussion without loss of consciousness Constipation COVID Diabetes MADDEN (dyspnea on exertion) History of CAD (coronary artery disease) HLD (hyperlipidemia) HTN (hypertension) Yvjs-Qllbq-Vwjxqaw disease s/p bilateral [facility] [place] Loose stools Low back pain Myalgia Overweight Pancreatitis Peripheral neuropathy Raynauds phenomenon Recurrent pneumonia Rheumatoid arthritis Skin lesion of face STEMI (ST elevation myocardial infarction) Torticollis Umbilical hernia Weakness of both arms Surgical History Amputation left ring Hernia Repair, Incisional x 4 History of bilateral hip replacements Total replacement of hip bilateral done at same setting. Social History (Updated 04/26/23 @ 11:08 by Bessy Vital RN, RN) Smoking/Tobacco Use Status: Never Smoking risk assessment performed?: Yes Alcohol Intake: never Drug use: Never Substance use type: does not use Household members: spouse Housing: house What is your relationship status?: Panel score (0-1 are the most socially isolated patients): 1 Do you feel safe at home: Yes Do you feel safe in your relationship?: Yes
[2023-12-06 12:59] LABS: Abs Immature Grans 0.02 10^3/uL (0.0-0.06); Absolute Basophil Count 0.03 10^3/uL (0.0-0.2); Absolute Eosinophil Count 0.05 10^3/uL (0.0-0.7); Absolute Lymphocyte Count 0.66 10^3/uL (1.2-3.4); Absolute Neutrophil Count 3.33 10^3/uL (1.2-6.7); Basophils % 0.7 %; Eosinophils % 1.1 %; HCT 40.4 % (40.0-50.0); HGB 13.3 g/dL (13.5-17.5); Immature Grans % 0.4 %; Lymphocytes % 14.7 %; MCH 29.2 pg (27.0-33.0); MCHC 32.9 % (32.0-36.0); MCV 89 fL (80-95); MPV 9.8 fL (8.0-11.0); Monocytes % 8.9 %; Neutrophils % 74.2 %; Platelet Count 172 10^3/uL (130-400); RBC 4.55 10^6/uL (4.36-5.78); RDW 13.8 % (11.8-14.1); RDW-SD 44.3 fL; WBC 4.49 10^3/uL (4.4-10.8)
[2023-12-06 13:15] LABS: ALT 20 U/L (16-63); AST 21 U/L (15-37); Albumin 3.6 g/dL (3.4-5.0); Alkaline Phosphatase 147 U/L (46-116); Anion Gap 5.2 mmol/L (3-11); BUN 14 mg/dL (7-18); Bilirubin, Total 0.44 mg/dL (0.2-1.0); CO2 31.8 mmol/L (21.0-32.0); CREATININE 1.3 mg/dL (0.70-1.30); Chloride 102 mmol/L (98-107); Glucose 108 mg/dL (74-106); Lipase 83 U/L (16-77); Potassium 4.6 mmol/L (3.5-5.1); Sodium 139 mmol/L (136-145)
[2023-12-06 13:22] LABS: Calcium 9.5 mg/dL (8.5-10.1)
[2023-12-06 14:02] VITALS: BP 123/50; PULSE 80; RESP 16; TEMP 36.9; O2SAT 94
[2023-12-06] MEDS: valACYclovir 500 MG TAB 1000 MG PO (14:52)
== END 2023-12-06 14:53 | disposition home or self-care (01) ==
PROVIDERS: Emergency Provider Student in an Organized Health Care Education/Training Program; PCP Family Medicine
DX: M54.50 Low back pain, unspecified (principal); R10.9 Unspecified abdominal pain; K59.00 Constipation, unspecified; B02.9 Zoster without complications
CPT/HCPCS: 36415; 80053; 83690; 99284; 74022; 85025; 99283

== ENCOUNTER 2023-12-26 01:32 | Outpatient (CLI) | payer OTHER, SELFPAY ==
--- NOTE | 2023-12-26 06:45 | DI.RAD_ITS ---
Exam(s) RF BARIUM SWALLOW UGI EXAM: RF BARIUM SWALLOW UGI CLINICAL HISTORY: Stomach mass,k31.89 TECHNIQUE: 2D and realtime digital imaging was performed. CONTRAST MATERIAL: Oral barium contrast was administered. COMPARISON: CR XR ABD FLAT UPRIGHT PA CHEST from 12/06/2023 FINDINGS: CHEST X-RAY: The heart and pulmonary vasculature are within normal limits. The lungs are clear. No pl eural effusion or pneumothorax is present. The bones are within normal limits for the patient's age. ESOPHAGRAM: The esophagus is patent with no evidence for erosions, fold thickening, strictures, or ma sses. With regards to the motility, there is a normal primary stripping wave. There are tertiary cont ractions which can be seen with presbyesophagus. There is a small hiatal hernia present. Stomach: There are thickened folds seen in the gastric antrum. (Series 10, image 1). This area per sists on multiple images. Duodenal Bulb: Shows no wall thickening, erosions, or masses. IMPRESSION: Prominent thickened gastric folds in the antrum. No ulceration is seen. Gastritis or neoplasm shoul d be considered. Upper endoscopy is recommended for further evaluation. Unexpected findings RADIATION DOSE DELIVERED: harley Heller=213 mGy
[2023-12-26] MEDS: Simethicone/Sod Bicarb/Cit Ac, 4 gram PACKET 1 PACKET PO (10:21)
[2023-12-26] MEDS: Barium Sulfate 98% W/W 140 ML BTL PO (10:21)
[2023-12-26] MEDS: Barium Sulfate 60% W/V 355 ML BTL 200 ML PO (10:22)
== END 2023-12-26 01:52 ==
LOC: DI 01:32
PROVIDERS: PCP Family Medicine; Visit Provider Surgery
DX: K31.89 Other diseases of stomach and duodenum (principal)
CPT/HCPCS: 74221; 74246; J3490

== ENCOUNTER 2024-01-16 06:17 | Day surgery (SDC) | payer OTHER, SELFPAY ==
--- NOTE | 2024-01-15 16:07 | PDOC.DSDIS_ITS ---
Date of service: 01/16/24 Time of Service: 08:03 Discharge Plan Disposition Patient Disposition: Home Condition: Good Discharge Details Reason For Visit: Diagnostic EGD Attending Provider: Saurabh Em Primary Care Provider: Neena Montiel V Home Meds and New Rx's Prescriptions: Continued fluticasone propion-salmeterol [Advair HFA] 115-21 mcg/actuation HFA aerosol inhaler 2 puff inhalation BID Qty: 12 11RF Rx Instructions: administer with spacer tramadol 50 MG tablet 50 mg PO BID methotrexate sodium 2.5 MG tablet 2.5 mg PO 6 TABS A WEEK Patient Comments: 08/14/14 takes q weekly on Sat night Rx Instructions: RECORDS STATE, 2.5MG, 6 TAB Q WEEK.HE losartan 100 MG tablet 100 mg PO DAILY Patient Comments: FROM RECORD.HE terazosin 10 mg capsule 10 mg PO DAILY ezetimibe 10 mg tablet 10 mg PO DAILY solifenacin 10 mg tablet 10 mg PO DAILY pantoprazole 40 mg tablet,delayed release (DR/EC) 40 mg PO DAILY aspirin [Adult Low Dose Aspirin] 81 mg tablet,delayed release (DR/EC) 81 mg PO DAILY atorvastatin 80 mg tablet 80 mg PO DAILY nitroglycerin 0.4 mg tablet, sublingual 0.4 mg sublingual Q5M PRN Rx Instructions: do not exceed 3 doses per episode gabapentin 600 mg tablet 600 mg PO QHS Rx Instructions: take 1 tablet by mouth at dinner and 2 tablets by mouth at bedtime. folic acid 1 mg tablet 1 mg PO DAILY amlodipine 10 mg tablet 10 mg PO DAILY gabapentin 100 mg capsule 100 mg PO BID PRN Rx Instructions: can take 1-2 tabs metoprolol succinate 100 mg tablet extended release 24 hr 150 mg PO DAILY Qty: 180 3RF valacyclovir [Valtrex] 1 gram tablet 1,000 mg PO TID Qty: 30 0RF peg 3350-electrolytes [Golytely] 236-22.74-6.74 -5.86 gram recon soln 240 ml PO Q10M Qty: 4000 0RF Rx Instructions: until fecal effluent is clear cyclobenzaprine 10 mg Tablet 10 mg PO BID metformin 500 mg tablet extended release 24 hr 500 mg PO DAILY Ozempic 0.25 mg or 0.5 mg (2 mg/3 mL) pen injector 0.5 mg SUBCUT .weekly Discharge Instructions Additional Instructions: Dariela, we were able to complete your upper endoscopy today without any difficulty. I hope you are comfortable during the procedure, and I am optimistic that you will have an uneventful recovery. I did see the abnormalities that were appreciated on the previous studies. It is a little hard to say at this point what is causing it. 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 The exact cause of these is not very well understood, but generally, so long as patients are not experiencing frequent bleeding episodes, they do not need to be treated. For patients that d o have bleeding, and require multiple transfusions, there are more invasive procedures to try to treat these. Alternatively, these abnormalities could also represent more worrisome problems such as gastric cancer. To be safe, I did some biopsies of these today. Usually takes a week or so to get all of the results, but as soon as I have those I will be in touch. In the meantime, continue taking your pantoprazole. It certainly will not help, and if anything it may offer some protection to the lining of your stomach. If you need anything at all, please do not hesitate to call us at any point. If it is after hours, you can always call the hospital dry starch operator and ask for them to page surgeon on-call. 1. If tolerated, consume a soft, low fiber diet for 1-2 days. [address] Do not drive, drink alcohol, operate machinery, make critical decisions, or do activities that require coordination or balance for 24 hours. 3. You may experience a sore throat for 24 to 48 hours. You may use throat lozenges or gargle with warm salt water to relieve the discomfort. 4. Because air was put into your stomach during the procedure, you may experience some belching. 5. Go directly to the emergency room if you notice any of the following: Develop chills (warm to touch), or if you have a thermometer and your temperature is above 101 Difficulty breathing or difficultly swallowing Persistent vomiting Severe abdominal pain, other than gas cramps Severe chest pain Black, tarry stools Any bleeding ? exceeding one tablespoon 6. Call your physician if the site where your intravenous was started becomes red, swollen, painful, and warm to touch. 7. Your physician has reviewed your pre-procedure medications. Please continue to take those medications as previously ordered. You will be given specific inf ormation/education regarding any changes to your medications before leaving. Activity:: Activity as Tolerated Diet:: As Tolerated Discharge Orders Discharge Orders: Discharge Order (Routine); Ordered 01/15/24 Ordered By: Saurabh Em DS: Diagnosis Discharge Diagnosis (1) Mass of stomach:
--- NOTE | 2024-01-15 16:10 | W.PM.ENDDOP ---
Date of service: 01/16/24 Time of Service: 08:06 Endoscopy Report DATE OF PROCEDURE: 01/16/24 PRE-OP DIAGNOSIS: Gastric mass POST-OP DIAGNOSIS: other (Gastric antral vascular ectasia) PROCEDURE: EGD SURGEON: Saurabh Em ANESTHESIA TYPE: General:No Airway ESTIMATED BLOOD LOSS: 10 PATHOLOGY: other (Cold forceps biopsies of gastric lesions) COMPLICATIONS: None DISPOSITION: same day INDICATIONS: Lisandro is a 63-year-old male who recently underwent a CT of the abdomen and pelvis that demonstrated some abnormalities of the distal stomach concerning for malignancy. Is a history of pancreas divisum, and in an effort to avoid EGD, we performed a barium swallow that supported the diagnosis of a gastric mass. 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 Under the direct vision of the scope, I advanced down the esophagus towards the stomach. The upper, mid, and lower esophagus were all normal and healthy appearing. I did not see any signs of varices. The Z-line was regular, and the GE junction measured about 46 cm from the incisors. I advanced the camera down into the stomach proper without any difficulty. There was a small amount of food product retained in the upper portion of the stomach. I performed retroflexion. I did not see any signs of hiatal hernia. Stomach was insufflated into the rugae were obliterated, and I turned the camera forward and advanced down around the incisura angularis. There were some linear abnormalities arising from the pylorus extending retrograde into the stomach. Some of the features were consistent with gastric antral vascular ectasia. Overlying mucosa was just a tiny bit friable. I am able to advance through the pylorus into the duodenal bulb which is normal. I did not advance further down into the duodenum in an effort to minimize the risk of post procedure pancreatitis, which Lisandro is experienced in the past. I brought the camera back up into the antrum. Cold forceps biopsies of these abnormalities were performed with minimal bleeding. I then emptied the stomach, brought the camera out along the length of the esophagus 1 last time. No other abnormalities were appreciated.
[2024-01-16 06:15] VITALS: BP 132/92; PULSE 59; RESP 18; TEMP 37.1; O2SAT 94
--- NOTE | 2024-01-16 07:03 | ANES.PREOP_ITS ---
General Info Date of Service Date Performed: 01/16/24 Height: 5 ft 7.5 in Weight: 104.4 kg Body Mass Index (BMI): 35.5 Surgical Procedure: Operation Date: 01/16/24 07:35 Proposed Procedure Side Surgeon p Gastroscopy Saurabh Em MD Actual Procedure Side Surgeon p Gastroscopy Not Applicable Saurabh Em MD Pre-Op Diagnosis Post-Op Diagnosis Diagnostic EGD Meds Allergies and Home Medications Allergies Allergy/AdvReac Type Severity Reaction Status Date / Time indomethacin (From Indocin) AdvReac Nausea/VOMI Verified 01/16/24 06:35 TTIING indomethacin sodium (From AdvReac Nausea/VOMI Verified 01/16/24 06:35 Indocin) TTIING metoprolol AdvReac FATIGUE/DIZ Verified 01/16/24 06:35 ZINESS Home Medication ?Medication ?Instructions ?Recorded tramadol 50 mg tablet 50 mg PO BID 07/10/12 losartan 100 mg tablet 100 mg PO DAILY 02/01/14 methotrexate sodium 2.5 mg tablet 2.5 mg PO 6 TABS A WEEK 02/01/14 cyclobenzaprine 10 mg tablet 10 mg PO BID 03/12/20 amlodipine 10 mg tablet 10 mg PO DAILY 02/08/22 aspirin 81 mg tablet,delayed 81 mg PO DAILY 02/08/22 release (Adult Low Dose Aspirin) atorvastatin 80 mg tablet 80 mg PO DAILY 02/08/22 ezetimibe 10 mg tablet 10 mg PO DAILY 02/08/22 folic acid 1 mg tablet 1 mg PO DAILY 02/08/22 gabapentin 600 mg tablet 600 mg PO QHS 02/08/22 nitroglycerin 0.4 mg sublingual 0.4 mg sublingual Q5M PRN 02/08/22 tablet pantoprazole 40 mg tablet,delayed 40 mg PO DAILY 02/08/22 release solifenacin 10 mg tablet 10 mg PO DAILY 02/08/22 terazosin 10 mg capsule 10 mg PO DAILY 02/08/22 gabapentin 100 mg capsule 100 mg PO BID PRN 10/11/22 fluticasone propionate 115 2 puff inhalation BID #12 grams 02/13/23 mcg-salmeterol 21 mcg/actuation HFA inhaler (Advair HFA) metoprolol succinate 100 mg 150 mg (1.5 x 100 mg) PO DAILY 02/26/23 tablet,extended release 24 hr #180 tabs metformin 500 mg tablet,extended 500 mg PO DAILY 12/04/23 release 24 hr semaglutide 0.25 mg or 0.5 mg (2 0.5 mg subcut .weekly 12/04/23 mg/3 mL) subcutaneous pen injector (Ozempic) peg 3350-electrolytes 236 240 ml PO Q10M #4,000 mL 12/06/23 gram-22.74 gram-6.74 gram-5.86 gram solution (Golytely) valacyclovir 1 gram tablet 1,000 mg PO TID #30 tabs 12/06/23 (Valtrex) Current Visit Medications: Current Medications Generic Name Dose Route Start Last Admin Trade Name Freq PRN Reason Stop Dose Admin Ringer's Solution 1,000 mls @ 80 mls/hr 01/16/24 06:00 IV 02/14/24 23:59 INFUSION [facility] IV Miscellaneous Supplies 1 each 01/16/24 06:00 Iv Access IV 02/14/24 23:59 DIRECTED MARY Ondansetron HCl 4 mg 01/15/24 16:11 Ondansetron 4 Mg/2 Ml Vial IVP 02/14/24 16:10 Q4H PRN PRN Nausea / Vomiting Sodium Chloride 0 ml 01/16/24 06:00 Normal Saline Flush 10 Ml Syr IV 02/14/24 23:59 PRN PRN Sodium Chloride 0 ml 01/16/24 06:00 Normal Saline 10 Ml Vial IJ 02/14/24 23:59 DIRECTED PRN Sterile Water 0 ml 01/16/24 06:00 Water,Injection,Sterile 10 Ml Vial IJ 02/14/24 23:59 DIRECTED PRN PFSH Active Problems Active Problems: Problem Status Onset Code Dyspnea Acute R06.00 Pulmonary edema Acute J81.1 MICHAEL (obstructive sleep apnea) Chronic G47.33 Dilated cardiomyopathy Acute I42.0 History of bilateral total hip arthroplasty Acute Z96.643 Shortness of breath Acute R06.02 Pancreas divisum Acute Q45.3 Cough Acute R05.9 Asbestos exposure Acute Z77.090 Bradycardia Acute R00.1 Rectal bleed Acute K62.5 Angina concurrent with and due to arteriosclerosis of coronary artery Acute I25.119 Encounter for preprocedural laboratory examination Acute Z01.812 Medical History Medical History Mass of stomach Incidental finding on abd/pelvic CT done in ED. 2cm soft tissue mass in distal stomach. 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[place] [facility] [place]ipheral neuropathy Umbilical hernia Rheumatoid arthritis Biceps tendinitis on left Cervicalgia Weakness of both arms Constipation HLD (hyperlipidemia) Raynauds phenomenon Myalgia Skin lesion of face Diabetes Loose stools Chest pain COVID MADDEN (dyspnea on exertion) Low back pain STEMI (ST elevation myocardial infarction) CAD (coronary artery disease) Chronic obstructive lung disease Benign hypertension Surgical History Surgical History History of cardiac catheterization w/5 stents per patient History of esophagogastroduodenoscopy x3 History of bilateral hip replacements Total replacement of hip bilateral done at same setting. Hernia Repair, Incisional x 4 Amputation left ring Tobacco Smoking/Tobacco Use Status: Never Alcohol Alcohol Intake: never Substance Use Substance use: Never Substance use type: does not use Vital Signs and Lab Results Vital Signs Most Recent Vital Signs in EMR: Most Recent Vital Signs Temp Pulse Resp BP Pulse Ox 37.1 C 59 L 18 132/92 H 94 01/16/24 06:15 01/16/24 06:15 01/16/24 06:15 01/16/24 06:15 01/16/24 06:15 Lab Results Blood Type / Crossmatch: No Data to Display Complete Blood Count: No Data to Display Complete Metabolic Panel: No Data to Display Liver Function Panel: No Data to Display Coagulation Panel: No Data to Display Cardiac Panel: No Data to Display Arterial Blood Gas: No Data to Display Venous Blood Gas: No Data to Display Pancreas Panel: No Data to Display Thyroid Panel: No Data to Display Infectious Disease: No Data to Display Blood Cultures: No Data to Display Toxicology Panel: No Data to Display Imaging and Studies Imaging and Studies Study information below may be from another EMR and interpreted by another provider. Please see original notes in EMR for more complete details. EKG Summary: EKG PATIENT NAME: Lisandro Frances UNIT #: [id number] ORDERING PROVIDER: Sandi Novoa NP PRIMARY CARE PROVIDER: TASHA PETERSON MD DATE/TIME OF SERVICE: 06/27/22 1329 : 1960 PERFORMING LOCATION: ER APPROVED REPORT Exam: Resting ECG Reason for Exam: Repeat Patient Location: E HR:44 bpm ECG Measurements Heart Rate [address] 231 P 37 QRSd 167 QRS 26 QT 480 T36 QTc 412 Conclusion Sinus bradycardia. Prolonged CT interval Right bundle branch block <Electronically signed by DEJA HSIEH MD in OV> E-Sign Date: 06/27/22 E-Sign Time: 1332 ADDENDUM APPROVED REPORT Exam: Resting ECG Reason for Exam: Repeat Patient Location: E HR:44 bpm ECG Measurements Heart Rate [address] 231 P 37 QRSd 167 QRS 26 QT 480 T36 QTc 412 Conclusion Sinus bradycardia. Prolonged CT interval Right bundle branch block I have reviewed and I agree with the emergency room physician's ECG interpretation. Electronically signed by: <Electronically signed by Regina Bradshaw M.D. in OV> 06/27/22 1336 Cosigned by: Stress Test Summary: Patient Name: Lisandro Frances Unit #: [id number] Loc: DI Ordering Provider: Tasha Peterson M.D. Status: [facility] Primary Care Provider: Tasha Peterson M.D. Date of Exam: 01/26/22 Sex: M Admission Date: 01/26/22 : 1960 Age: 61 APPROVED REPORT Exam: Pharmacologic Patient Location: Out-Patient Room/Bed: Stress Nurse: Rona Sanon RN Ordering Provider:TASHA PETERSON, Contact Number: [phone] BMI: 34.69 Baseline Rhythm: RBBB/LPFB Comment: T-wave inversions in V2 Indications: Angina. AMDDEN. Medical History Medical History: HTN. COPD. Angina. STEMI. Nocturnal hypoxia. COVID 19. DM. Raynaud's. HLD. Sleep Apnea. Periphera neuropathy. Cardiac Medications: Metoprolol succinate. Atorvastatin. Amlodipine. Nitro SL. Prasugrel. Methotrexate sodium. Losartan. Gabapentin. Allergies: Indomethacin. Metoprolol. Cardiac Risk Factors: Family hx. COPD. HTN. Pre-diabetes. HLD. Previous Cardiac Procedures: Cardiac stents 2021. Pretest Chest Pain Characteristics: None Exercise History: Physically active Physical Disabilities: None Lung Sounds: Clear to auscultation Heart Sounds: Regular. Stress Test Details Test: Exercise stress converted to pharmacologic stress due to failure to obtain a diagnostic stress test. Nuclear Acquisition: Rest Tc-99m/Stress Tc-99m 1 day Rest Isotope: Tc-99m Sestamibi. Dose: 10.3 Date: 01/26/2022 Injection Time: 0840 Stress Isotope: Tc-99m Sestamibi. Dose: 32.8 Date: 01/26/2022 Injection Time: 1005 HR Resting HR Supine: 55 bpmMax Heart Rate (APMHR): 160.936341 bpm Resting HR Standin bpmTarget HR (85% APMHR): 136.377905 bpm Max HR Achieved: 120 bpm % of APMHR: 75.00 Recovery HR: 76 bpm HR response to stress: Blunted HR response to stress Comment: Metoprolol succinate held for 24 hours prior to stress testing. BP Resting BP Supine: 138/80 mmHg Resting BP Standin/84 mmHg Max BP: 142/62 mmHg Recovery BP: 120/66 mmHg BP response to stress: Normal blood pressure response to stress. ECG Resting ECG: Sinus. RBBB. LPFB. Comment: T wave inversions in lead V2 Stress ECG: Sinus tachycardia. RBBB. LPFB. ST Change: No significant ST segment changes noted Arrhythmia: VPC's Recovery ECG: RBBB. LPFB. Recovery ST Change: No significant ST segment changes noted Recovery Arrhythmia: VPC Clinical Reason for Termination: Dyspnea Stress Symptoms: Dyspnea, Leg Fatigue Exercise duration: 7 min43 sec Highest Stage Reached: Stage 3: 3.4 mph at 14% grade. Rate Pressure Product: 15381 Stress ECG Conclusion 1. Electrocardiogram showed right bundle branch block 2. Patient underwent testing using a combination of exercise and pharmacologic stress with regadenoson 3. Peak heart rate achieved was 75% of predicted for age 4. The electrocardiographic portion of the test was nondiagnostic due to inadequate heart rate 5. Sporadic PVCs were seen 6. See MPI report Stress Test Summary STAGE Time (mins) Speed (mph) Grade (%) HR [id number] Rwbxvv65676/80 Vabsbdxb08593/84 131.576527323/664.5 1 min post Lexiscan mrzjkiorf712151/62 3 min post Lexiscan zslmvdpml75146/58 6 min post Lexiscan cqwcujkvp66844/66 Transitioned to walking Lexiscan at 1.5 mph, 0% grade after 7.43 minutes of Jared protocol due to pt's dyspnea, leg fatigue and inability to reach target heart rate. MPI Conclusion Normal myocardial perfusion. There is no ischemia or evidence of prior infarction EF is 53%. Wall motion is normal Radiologist Interpretation Radiologist Interpretation by: Phil Em MD Interpretation Date/Time: 01/26/2022 16:53:16 Ordered By: Tasha Peterson M.D. CC: DERIK MASSEY,REGINA PENALOZA Dictated By: Regina Bradshaw M.D. 01/26/22 1048 <Electronically signed by Regina Bradshaw M.D. in OV> 01/27/22 0807 Transcribed By: Regina Bradshaw MD This is privileged, confidential information intended only for the provider named. Any use or distribution by any person other than this provider is strictly prohibited. If you receive this report in error, please notify us immediately at [phone] and return the original report to us at the address above. Thank-you. Echocardiogram Summary: Patient Name: Lisandro Frances Unit #: [id number] Loc: DI Ordering Provider: Tasha Peterson M.D. Status: [facility] Primary Care Provider: Tasha Peterson M.D. Date of Exam: 01/12/23 Sex: M Admission Date: 01/12/23 : 1960 Age: 62 APPROVED REPORT EXAM: Comprehensive 2D, Doppler, and color-flow Echocardiogram Patient Location: Out-Patient Donor Floor Technician: Tesha Hearn RDCS (AE) Indications: Asbestos exposure, Abnormal lung field, Angina, MADDEN, Chest discomfort Other Information Study Quality: Good Conclusion Normal left ventricular wall thickness and chamber size. Ejection fraction is 60%. Wall motion is normal Normal right ventricular size and systolic function Both atria are normal in size Aortic valve is mildly sclerotic and trileaflet without stenosis or regurgitation Normal mitral valve with trace to mild regurgitation Normal tricuspid valve with trace regurgitation. Estimated right ventricular systolic pressure is 16 mmHg Mildly dilated ascending aorta 3.50 cm Wall motion Left Ventricle The left ventricle is normal size. The left ventricular systolic function is normal. The left ventricular ejection fraction is within the normal range. There is normal left ventricular wall thickness. There is normal LV segmental wall motion. There is no ventricular septal defect visualized. LVEF is 60%. Right Ventricle The right ventricle is normal size. The right ventricular systolic function is normal. Atria The left atrium size is normal. The right atrium size is normal. The interatrial septum is intact with no evidence for an atrial septal defect. Aortic Valve The Aortic valve is mildly sclerotic. Aortic valve is trileaflet. There is no aortic valvular stenosis. Mitral Valve The mitral valve is normal in structure. No evidence of mitral valve stenosis. Trace to mild mitral regurgitation. Tricuspid Valve The tricuspid valve is normal in structure. There is no tricuspid valve stenosis. Trace tricuspid regurgitation. The RVSP is 16.0 mmHg. Pulmonic Valve The pulmonary valve is normal in structure. There is no pulmonic valvular stenosis. Trace pulmonic regurgitation. Great Vessels The aortic root is normal in size. The ascending aorta is mildly dilated. Aortic arch is normal in caliber. IVC is normal in size and collapses >50% with inspiration. Pericardium There is no pericardial effusion. 2D Dimensions IVSD d PLAX 0.79 cm M: 0.6-1.2Ao Root d 3.01 cm M: 3.1 - 3.7 LVPW d PLAX 0.81 cm M: 0.6 - 1.2Ao Asc Diam d 3.50 cm M: 2.6 - 3.4 LVID d PLAX 5.51 cm M: 4.2 - 5.8 LVDs 3.71 cm M: 2.5 - 4.0 LV EF Teichholz 60.5 % FS32.65 % LV EDV (Teich)147.8 mL LV ESV (Teich)58.5 mL M-Mode TAPSE 2.38 cm (M/F) >1.7 Auto EF LV EDV I7T983.4 mLLV EDV L7S236.7 mLLV EDV BP155.2 mL LV ESV A4C66.9 mLLV ESV A2C60.1 mLLV ESV BP62.7 mL LVEF(%) A4C59.3 %LVEF(%) A2C59.0 %LVEF(%) BP59.6 % LV SV A4C97.5 mlLV SV A2C86.6 mlLV SV BP92.5 ml LV CO A4C4.8 L/minLV CO A2C4.6 L/minLV CO BP4.7 L/min HR A4C49.39 BPMHR A2C52.79 BPMLV EDV Index (BP) RV Strain Global Peak Long. Strain A4C13.15 Global Peak Long. Strain A4C FW13.43 LA Volume LA Length A4C6.2 cmLA Length A2C5.3 cm LA Area A4C s 21.82 cm2LA Area A2C s 20.73 cm2 LA Vol A4C A-L65.69 mLLA Vol A2C A-L68.51 mLLA Vol Biplane A-L72.1 mL LA Vol/BSA A4C A-LLA Vol/BSA A2C A-LLA Vol/BSA BP A-L 33.5 mL/m2 LA Vol A4C MOD58.7 mLLA Vol A2C MOD65.9 mLLA Vol BP MOD66.6 mL RA Volume RA Area A4C14.6 cm2RA ESV A4C (A-L)36.0mLRA Vol/BSA A4C A-L RA Length A4C5.0 cmRA ESV A4C (MOD)35.5mL LV Diastology MV E' medial0.074 (>0.07 m/s)MV E Vmax 0.81 (0.4-1.3 m/s) MV E/E' MED10.91 (<14)MV A Vmax 0.70 (0.4-1.3 m/s) MV E' lateral0.133 (>0.1 m/s)E/A Ratio 1.2 MV E/E' LAT6.08 (<14) MV E' Average0.104 m/s MV E/E'(average)7.81 Aortic Valve AoV Vmax1.69 m/sLVOT Vmax 1.18 m/s AoV Peak Grad11.4 mmHgLVOT Peak Grad 5.6 mmHg AoV Area (Vmax)2.25 ep0BTIL VTI0.310 m AoV VTI0.419 mLVOT Mean Grad 3.4 mmHg AoV Mean Michael.1.18 m/sLVOT SV 99.16 mL AoV Mean Grad6.4 mmHgLVOT Diam s 2.00 cm AoV Area (VTI)2.37 cm2 Velocity Ratio 0.70 Mitral Valve MV DT 184 (160-240 msec) MV Vmax TIPS 0.84 m/s MV Mean Grad 1.0 (<2mmHg) MV VTI 0.341 m Pulmonary Valve PV Vmax 0.90 (0.5-1.5 m/s)RVOT Vmax 0.54 m/s PV Peak Grad 3.3 mmHgRVOT Peak Gr.1.2 mmHg PV Mean Vel0.69 m/sRVOT VTI0.143 m PV Mean Grad 2.1 mmHgRVOT Mean Gr.0.7 mmHg Tricuspid Valve RA Pressure 3.00 mmHgTR Vmax 1.80 m/s TV S'0.09 m/sTR Peak Grad 13.0 mmHg RVSP (TR) 16.0 mmHg Ordered By: Tasha Peterson M.D. CC: TASHA EISENBERG Dictated By: Regina Bradshaw M.D. 01/12/23912 <Electronically signed by Regina Bradshaw M.D. in OV> 01/15/23809 Transcribed By: Regina Bradshaw MD 01/12/23912 This is privileged, confidential information intended only for the provider named. Any use or distribution by any person other than this provider is strictly prohibited. If you receive this report in error, please notify us immediately at [phone] and return the original report to us at the address above. Thank-you. Pulmonary Function Summary: Pulmonary Function Test PATIENT NAME: Lisandro Frances UNIT #: [id number] ADMITTING PROVIDER: Yamel Sheth M.D. PRIMARY CARE PROVIDER: TASHA PETERSON MD DATE OF ADMIT: 10/15/23 : 1960 Date of service: 10/15/23 Time of Service: 10:06 Pulmonary Function Test Result Requesting Provider Tasha Peterson Indications: MADDEN Impression Spirometry shows normal FEV1/FVC 79%. Mild decrease in FEV1 of 72%. And a moderate decrease in FVC at 68%. Flow-volume curve shows a flattening of the inspiratory curve at times suggestive of vocal cord dysfunction. Methacholine challenge was scheduled but after receiving a saline nebulization patient developed significant symptoms with bronchospasm and dyspnea and bronchoprovocation test was not obtained. Clinical Correlation therefore is recommended. cc: Dictated by: Yamel Sheth M.D. Dictated: 10/24/23 Time: 1246 <Electronically signed by Yamel Sheth M.D.> Date: 10/24/231247 Date: Date: Transcribed Date: 10/24/23 Transcribed Time: 1246 By: MICKEY This is privileged, confidential information, intended only for the provider named. Any use or distribution by any person other than this provider is strictly prohibited. If you receive this report in error, please notify us immediately at [phone] and return the original report to us at the address above. Thank you. Anesthesia Assessment and Plan Anesthesia History Personal History: No History of Anesthesia Complications Family History: No Family History of Anesthesia Complications Exercise Tolerance Exercise Tolerance: Metabolic Equivalents>4 Pertinent Negatives Pertinent Negatives: No Symptoms of GERD, No Major Cardiovascular Symptoms or Complaints, No Major Pulmonary Symptoms or Complaints and No History of CVA/TIA Cardiac & Pulmonary Exam Cardiac Exam: Normal S1/S2 Heart Sounds Pulmonary Exam: Clear Bilateral Breath Sounds Implantable Cardiac Device Does patient have a Pacemaker or an ICD?: No Airway Exam Known Difficult Airway: No Mallampati Class: 4 Mouth Opening: Normal (> 3cm) Thyromental Distance: Greater than 3 cm Neck Range of Motion: Full ROM Neck Circumference: Normal Teeth Condition: Normal Dentition ASA Classification ASA Score: ASA 3 Emergency Case?: No NPO Status NPO Status: NPO Clears >2 hours, Solids >8 hours Anesthesia Plan Resuscitation Status: Full Code Anesthesia Technique: General Anesthesia Airway Planned: Natural Airway Monitors Used: Standard Monitors
[2024-01-16 07:07] VITALS: BMI 35.5
[2024-01-16] MEDS: Lactated Ringers 1,000 ML 80 ML IV (07:08)
--- NOTE | 2024-01-16 07:47 | STOM_PTH ---
PATIENT: Lisandro Frances LOC: [facility] U#:[id number] AGE/SX: 63/M ROOM: RE01/16/[address]: Saurabh Em MD : 1960 BED: DIS: 01/16/2024 SPEC #: [id number] RECD: 01/16/24 12:59 STATUS: [place] REQ #: [id number] RJ: 01/16/24 07:[address]: Saurabh Em DEPT: Surgical Specimen RECD BY: Vivian Garcia ENTERED: 01/16/24 12:59 SP TYPE: STOMACH OTHR DR: Neena Montiel V Tissues: 1 - STOMACH BIOPSY Procedures: GROSS AND MICRO LEVEL 4 Comments: [id number]
[2024-01-16 07:58] VITALS: BP 135/75; PULSE 104; RESP 16; TEMP 36.7; O2SAT 94
[2024-01-16 08:55] VITALS: BP 135/105; PULSE 98; RESP 20; TEMP 36.8; O2SAT 95
--- NOTE | 2024-01-16 09:05 | W.ANESPOSTOP ---
Postoperative Evaluation Date, Time and Location Date Performed: 01/16/24 Time Performed: 09:01 Patient Location: Day Surgery Unit Vital Signs Most Recent Imported Vital Signs: Most Recent Vital Signs Temp Pulse Resp BP Pulse Ox 36.7 C 104 H 16 135/75 94 01/16/24 07:58 01/16/24 07:58 01/16/24 07:58 01/16/24 07:58 01/16/24 07:58 Pain Score Most Recent Pain Score: Most Recent Pain Score Pain Level 0 01/16/24 07:58 Assessment Mental Status: Awake (Alert & Oriented to Patient Baseline) Airway and Respiratory Function: Patent airway with normal (patient baseline) respiratory exam Cardiovascular Function: Hemodynamically Stable Hydration Status: Adequately Hydrated Nausea & Vomiting: No Nausea or Vomiting Pain: Pt. Denies Any Pain Peripheral Nerve Block: Patient did not receive a nerve block
== END 2024-01-16 06:18 | disposition home or self-care (01) ==
LOC: SUR 06:17
PROVIDERS: PCP Family Medicine; Visit Provider Surgery
PROC: 0DJ68ZZ Inspection of Stomach, Via Natural or Artificial Opening Endoscopic (ICD-10-PCS; CPT 43235; principal; 2024-01-16 07:30)
DX: K31.819 Angiodysplasia of stomach and duodenum without bleeding; K31.89 Other diseases of stomach and duodenum; G47.33 Obstructive sleep apnea (adult) (pediatric)
CPT/HCPCS: 43239; 88305; J2704

== ENCOUNTER 2024-09-01 16:38 | Emergency (ER) | payer OTHER, SELFPAY ==
[2024-09-01 16:52] VITALS: BP 128/80; PULSE 66; RESP 16; TEMP 36.7; O2SAT 92
--- NOTE | 2024-09-01 17:06 | ED.GENADUL_ITS ---
Discharge Plan Disposition Patient Disposition: Home Condition: Stable Discharge Details Clinical Impression: Left ankle sprain Primary Care Provider: Neena Montiel V ED Provider: Lonny Schroeder Home Meds and New Rx's Prescriptions: Continued fluticasone propion-salmeterol [Advair HFA] 115-21 mcg/actuation HFA aerosol inhaler 2 puff inhalation BID Qty: 12 11RF Rx Instructions: administer with spacer tramadol 50 MG tablet 50 mg PO BID methotrexate sodium 2.5 MG tablet 2.5 mg PO 6 TABS A WEEK Patient Comments: 08/14/14 takes q weekly on Sat night Rx Instructions: RECORDS STATE, 2.5MG, 6 TAB Q WEEK.HE losartan 100 MG tablet 100 mg PO DAILY Patient Comments: FROM RECORD.HE terazosin 10 mg capsule 10 mg PO DAILY ezetimibe 10 mg tablet 10 mg PO DAILY solifenacin 10 mg tablet 10 mg PO DAILY pantoprazole 40 mg tablet,delayed release (DR/EC) 40 mg PO DAILY aspirin [Adult Low Dose Aspirin] 81 mg tablet,delayed release (DR/EC) 81 mg PO DAILY atorvastatin 80 mg tablet 80 mg PO DAILY nitroglycerin 0.4 mg tablet, sublingual 0.4 mg sublingual Q5M PRN Rx Instructions: do not exceed 3 doses per episode gabapentin 600 mg tablet 600 mg PO QHS Rx Instructions: take 1 tablet by mouth at dinner and 2 tablets by mouth at bedtime. folic acid 1 mg tablet 1 mg PO DAILY amlodipine 10 mg tablet 10 mg PO DAILY gabapentin 100 mg capsule 100 mg PO BID PRN Rx Instructions: can take 1-2 tabs metoprolol succinate 100 mg tablet extended release 24 hr See Rx Instructions .ROUTE .COMPLEX Qty: 42 0RF Dose Instruction: TAKE 1 & 1/2 TABLETS BY MOUTH DAILY Rx Instructions: TAKE 1 & 1/2 TABLETS BY MOUTH DAILY valacyclovir [Valtrex] 1 gram tablet 1,000 mg PO TID Qty: 30 0RF peg 3350-electrolytes [Golytely] 236-22.74-6.74 -5.86 gram recon soln 240 ml PO Q10M Qty: 4000 0RF Rx Instructions: until fecal effluent is clear cyclobenzaprine 10 mg Tablet 10 mg PO BID metformin 500 mg tablet extended release 24 hr 500 mg PO DAILY Ozempic 0.25 mg or 0.5 mg (2 mg/3 mL) pen injector 0.5 mg SUBCUT .weekly Discharge Instructions Additional Instructions: your x-ray did not show any broken bones. Try to keep your leg elevated is much as possible to help reduce the swelling. If you feel significant worsening pain return to the emergency department. If you are not improving in a week follow-up with your primary care provider. HPI General Mode of arrival: ambulatory . Date/Time Provider Initiated Documentation: 09/01/24 16:50 . Limitations to Documentation: no limitations . Information obtained by: patient . History of Present Illness 63 year old M presents to the emergency department with the chief complaint of left ankle pain, described as moderate, Quality is described as aching, and is localized to the left and lower extremity. and it has been constant. Rest improves symptom(s), Movement worsens symptoms . Patient notes no other symptoms.. Patient did receive the following treatments prior to arrival, none Related Data Home Medications ?Medication ?Instructions ?Recorded ?Confirmed tramadol 50 mg tablet 50 mg PO BID 07/10/12 09/01/24 losartan 100 mg tablet 100 mg PO DAILY 02/01/14 09/01/24 methotrexate sodium 2.5 mg tablet 2.5 mg PO 6 TABS A WEEK 02/01/14 09/01/24 cyclobenzaprine 10 mg tablet 10 mg PO BID 03/12/20 09/01/24 amlodipine 10 mg tablet 10 mg PO DAILY 02/08/22 09/01/24 aspirin 81 mg tablet,delayed 81 mg PO DAILY 02/08/22 09/01/24 release (Adult Low Dose Aspirin) atorvastatin 80 mg tablet 80 mg PO DAILY 02/08/22 09/01/24 ezetimibe 10 mg tablet 10 mg PO DAILY 02/08/22 09/01/24 folic acid 1 mg tablet 1 mg PO DAILY 02/08/22 09/01/24 gabapentin 600 mg tablet 600 mg PO QHS 02/08/22 09/01/24 nitroglycerin 0.4 mg sublingual 0.4 mg sublingual Q5M PRN 02/08/22 09/01/24 tablet pantoprazole 40 mg tablet,delayed 40 mg PO DAILY 02/08/22 09/01/24 release solifenacin 10 mg tablet 10 mg PO DAILY 02/08/22 09/01/24 terazosin 10 mg capsule 10 mg PO DAILY 02/08/22 09/01/24 gabapentin 100 mg capsule 100 mg PO BID PRN 10/11/22 09/01/24 fluticasone propionate 115 2 puff inhalation BID #12 grams 02/13/23 09/01/24 mcg-salmeterol 21 mcg/actuation HFA inhaler (Advair HFA) metformin 500 mg tablet,extended 500 mg PO DAILY 12/04/23 09/01/24 release 24 hr semaglutide 0.25 mg or 0.5 mg (2 0.5 mg subcut .weekly 12/04/23 09/01/24 mg/3 mL) subcutaneous pen injector ([employer] peg 3350-electrolytes 236 240 ml PO Q10M #4,000 mL 12/06/23 09/01/24 gram-22.74 gram-6.74 gram-5.86 gram solution (Golytely) valacyclovir 1 gram tablet 1,000 mg PO TID #30 tabs 12/06/23 09/01/24 (Valtrex) metoprolol succinate 100 mg See Rx Instructions .Route 03/27/24 09/01/24 tablet,extended release 24 hr .COMPLEX #42 tabs Previous Rx's ?Medication ?Instructions ?Recorded fluticasone propionate 115 2 puff inhalation BID #12 grams 02/13/23 mcg-salmeterol 21 mcg/actuation HFA inhaler (Advair HFA) peg 3350-electrolytes 236 240 ml PO Q10M #4,000 mL 12/06/23 gram-22.74 gram-6.74 gram-5.86 gram solution (Golytely) valacyclovir 1 gram tablet 1,000 mg PO TID #30 tabs 12/06/23 (Valtrex) metoprolol succinate 100 mg See Rx Instructions .Route 03/27/24 tablet,extended release 24 hr .COMPLEX #42 tabs Allergies Allergy/AdvReac Type Severity Reaction Status Date / Time indomethacin (From Indocin) AdvReac Nausea/VOMI Verified 09/01/24 16:54 TTIING indomethacin sodium (From AdvReac Nausea/VOMI Verified 09/01/24 16:54 Indocin) TTIING metoprolol AdvReac FATIGUE/DIZ Verified 09/01/24 16:54 ZINESS General Stated Complaint: Orthopedic MOUSTAPHA: 4 Review of Systems All systems reviewed & are unremarkable except as noted in HPI and below Constitutional Constitutional: Denies chills, Denies fever(s) and Denies weakness Cardiovascular Cardiovascular: Denies chest pain Gastrointestinal Gastrointestinal: Denies abdominal pain and Denies vomiting Neurologic Neurologic: Denies weakness Exam Const General: no acute distress Orientation: alert HENTX Head: normal to inspection Ears: external ears normal General nose exam: external nose normal Mouth: moist mucous membranes Eyes General: appearance normal, both eyes and all related structures Neck Neck: normal visual inspection Resp Effort & Inspection: normal respiratory effort and able to speak in complete sentences Cardio Rate: regular rate Skin General skin exam: no rashes or lesions noted Neuro General: patient alert and patient oriented x3 Extrem General: full ROM and capillary refill normal Psych Mental Status: mental status grossly normal Course Vital Signs Vital signs: Vital Signs Temperature 36.7 C 09/01/24 16:52 Pulse 66 09/01/24 16:52 Respiratory Rate 16 09/01/24 16:52 Blood Pressure 128/80 09/01/24 16:52 Pulse Oximetry 92 09/01/24 16:52 Temperature 36.7 C 09/01/24 16:52 Temperature Source Tympanic 09/01/24 16:52 Pulse 66 09/01/24 16:52 Respiratory Rate 16 09/01/24 16:52 Blood Pressure 128/80 09/01/24 16:52 Pulse Oximetry 92 09/01/24 16:52 Oxygen Delivery Method Room Air 09/01/24 16:52 Oxygen Flow Rate 0 09/01/24 16:52 Medical Decision Making 63-year-old male comes in with left ankle pain. He says he was helping his family member move this morning when he stepped in a small hole and tripped causing pain in his left lateral ankle. Did not hit his head or loss of consciousness. He denies any pain of the left ankle. He has lateral malleolar swelling and tenderness. Has no posterior ankle pain or tenderness. He has full range of motion of the ankle, intact sensation and pulses in the foot. I suspect ankle sprain but will obtain x-rays to evaluate for fracture. He has no findings on exam to suggest entities such as Achilles tendon rupture. Patient stable, x-ray unremarkable. Suspect ankle sprain, he will follow-up with his PCP if not improving in a week and return precautions given. Differential Diagnosis Differential Diagnosis: Sprain, strain, fracture Quality:SDOH Health Related Social Needs: No Data to Display PFSH All Active Problems (Updated 09/01/24 @ 17:49 by Lonny Schroeder MD) Left ankle sprain (Acute) Joint pain (Acute) Vascular ectasia of stomach (Acute) Seronegative arthritis (Acute) Dyspnea (Acute) Pulmonary edema (Acute) MICHAEL (obstructive sleep apnea) (Chronic) Does not tolerate CPAP, wears nocturnal O2 Dilated cardiomyopathy (Acute) History of bilateral total hip arthroplasty (Acute) Shortness of breath (Acute) Pancreas divisum (Acute) Cough (Acute) Asbestos exposure (Acute) Bradycardia (Acute) Rectal bleed (Acute) Angina concurrent with and due to arteriosclerosis of coronary artery (Acute) Encounter for preprocedural laboratory examination (Acute) Medical History (Updated 09/01/24 @ 17:49 by Lonny Schroeder MD) Mass of stomach Incidental finding on abd/pelvic CT done in ED. 2cm soft tissue mass in distal stomach. Angina pectoris, unspecified History of CAD (coronary artery disease) Abnormal lung field Concussion without loss of consciousness Overweight Recurrent pneumonia Pancreatitis BPH (benign prostatic hyperplasia) HTN (hypertension) Torticollis Smml-Kolfo-Ixlzyvi disease s/p bilateral [facility] Peripheral neuropathy Umbilical hernia Rheumatoid arthritis Biceps tendinitis on left Cervicalgia Weakness of both arms Constipation HLD (hyperlipidemia) Raynauds phenomenon Myalgia Skin lesion of face Diabetes Loose stools Chest pain COVID MADDEN (dyspnea on exertion) Low back pain STEMI (ST elevation myocardial infarction) CAD (coronary artery disease) Chronic obstructive lung disease Benign hypertension Surgical History (Updated 01/16/24 @ 15:29 by Nafisa Graham) History of cardiac catheterization w/5 stents per patient History of esophagogastroduodenoscopy (~01/2024) x3 History of bilateral hip replacements Total replacement of hip bilateral done at same setting. Hernia Repair, Incisional x 4 Amputation left ring Social History (Updated 04/26/23 @ 11:08 by Bessy Vital RN, RN) Smoking/Tobacco Use Status: Never Smoking risk assessment performed?: Yes Alcohol Intake: never Drug use: Never Substance use type: does not use Household members: spouse Housing: house What is your relationship status?: Panel score (0-1 are the most socially isolated patients): 1 Do you feel safe at home: Yes Do you feel safe in your relationship?: Yes
--- NOTE | 2024-09-01 17:30 | DI.RAD_ITS ---
Exam(s) XR ANKLE LT COMPLETE EXAM: XR ANKLE LT COMPLETE CLINICAL HISTORY: pain s/p tripping. TECHNIQUE: 2D digital imaging was performed. COMPARISON: No exams were available for comparison FINDINGS: 3 views There is soft tissue swelling laterally but no evidence of acute fracture or widening the ankle morti se. Talar dome unremarkable. Mild degenerative changes are noted in the posterior aspect of the ank le-tibiotalar joint. Subtalar joint appears unremarkable. There is a prominent inferior calcaneal s pur noted. There is also calcification at the insertional aspect of the Achilles tendon on the poste rior calcaneus. Bone density normal. No osseous lesions evident. IMPRESSION: Lateral soft tissue swelling but no fractures evident. Other findings as above. DATA REPOSITORY: RADIATION DOSE DELIVERED:
[2024-09-01 17:55] VITALS: BP 125/71; PULSE 68; RESP 20; O2SAT 95
== END 2024-09-01 17:59 | disposition home or self-care (01) ==
PROVIDERS: Emergency Provider Emergency Medicine; PCP Family Medicine
DX: S93.402A Sprain of unspecified ligament of left ankle, initial encounter (principal); M77.32 Calcaneal spur, left foot; I25.10 Atherosclerotic heart disease of native coronary artery without angina pectoris; I10 Essential (primary) hypertension; E78.5 Hyperlipidemia, unspecified; J44.9 Chronic obstructive pulmonary disease, unspecified; I25.2 Old myocardial infarction; Z79.82 Long term (current) use of aspirin; X50.1XXA Overexertion from prolonged static or awkward postures, initial encounter; Y93.01 Activity, walking, marching and hiking; Y92.018 Other place in single-family (private) house as the place of occurrence of the external cause
CPT/HCPCS: 99283; 73610

== ENCOUNTER 2025-02-17 18:59 | Outpatient (REF) | payer OTHER, SELFPAY ==
[2025-02-17 19:15] LABS: ESR 25 mm/hr (0-20)
[2025-02-17 19:31] LABS: Hemoglobin A1C 7.3 % (<5.7)
[2025-02-17 19:33] LABS: ALT 31 U/L (10-49); AST 28 U/L (<34); Albumin 4.8 g/dL (3.4-5.0); Alkaline Phosphatase 135 U/L (46-116); Anion Gap 7.5 mmol/L (3-11); BUN 19 mg/dL (9-23); Bilirubin, Total 0.20 mg/dL (0.2-1.2); CO2 28.5 mmol/L (20.0-31.0); Calcium 9.9 mg/dL (8.3-10.6); Chloride 106 mmol/L (98-107); Cholesterol 269 mg/dL (<200); Glucose 109 mg/dL (74-106); HDL Cholesterol 37 mg/dL (>40); Potassium 4.0 mmol/L (3.5-5.1); Sodium 142 mmol/L (136-145); Total Protein 7.7 g/dL (5.7-8.2)
[2025-02-17 19:58] LABS: C-Reactive Protein < 0.50 mg/dL (<=0.50)
[2025-02-18 17:57] LABS: PSA, Screening 2.1 ng/mL (<=4.5)
== END 2025-02-17 19:00 | disposition home or self-care (01) ==
LOC: NCHCN 18:59
PROVIDERS: PCP Family Medicine; Visit Provider Family Medicine
DX: E78.5 Hyperlipidemia, unspecified (principal); Z12.5 Encounter for screening for malignant neoplasm of prostate; E11.9 Type 2 diabetes mellitus without complications; M06.00 Rheumatoid arthritis without rheumatoid factor, unspecified site
CPT/HCPCS: 80053; 80061; 84153; 85652; 83036; 86140